=== PATIENT | female | born 1990 | race Caucasian/White ===

== ENCOUNTER 2019-06-02 11:33 | Observation (INO) | payer OTHER, SELFPAY ==
[2019-06-02] MEDS: DEXTROSE 5%/LACTATED RINGERS 1,000 ML 999 ML IV CONT (13:55)
[2019-06-02] MEDS: PROMETHAZINE HCL 12.5 MG SUPP.RECT RECTAL ×2 (14:15→18:36)
[2019-06-02 15:11] LABS: Basophils Percent Auto 0.1 % (0.2-1.2); Hematocrit 38.5 % (37.0-47.0); Immature Granulocyte Absolute 0.09 K/mm3 (0.00-0.031); Immature Granulocyte Percent A 0.5 % (0-0.5); Lymphocytes Absolute Auto 1.08 K/mm3 (0.9-3.2); Lymphocytes Percent Auto 6.4 % (18.3-44.2); Mean Corpuscular HGB Conc 36.4 g/dl (32-36); Mean Corpuscular Hemoglobin 34.1 pg (26-34); Mean Corpuscular Volume 93.7 fl (80-100); Mean Platelet Volume 12.9 fl (7.4-10.4); Monocytes Absolute Auto 0.3 K/mm3 (0.1-0.6); Monocytes Percent Auto 1.9 % (2.6-8.5); Neutrophils Absolute Auto 15.5 K/mm3 (1.3-6.7); Neutrophils Percent Auto 91.1 % (45.5-73.1); Platelet Count Result 299 k/mm3 (150-375); Red Blood Count 4.11 M/mm3 (4.2-5.4); Red Cell Distribution Width 13.3 % (11.5-14.5)
--- NOTE | 2019-06-02 15:16 | OBADM ---
This patient, Samantha Beach, admitted to the OB room [facility] Post [facility] for observation. Patient/family oriented to hospital policies and general routines including ID bracelet, bed and alarms, visiting hours, pain management, procedures, bathroom and other care routines, personal items, smoking policy, room service/diet, and visiting hours. Patient/Family are encouraged to report perceived risks to care and to ask questions if they do not understand what they are told or what they should do.
[2019-06-02 15:19] VITALS: BMI 43.9
[2019-06-02 15:22] LABS: Alanine Aminotransferase 9 U/L (4-35); Albumin Level 4.2 g/dL (3.5-5.1); Alkaline Phosphatase 63 U/L (38-126); Aspartate Amino Transferase 17 U/L (14-36); Bilirubin,Total 0.6 mg/dL (0.2-1.3); Blood Urea Nitrogen 7 mg/dL (7-17); Calcium 9.1 mg/dL (8.4-10.2); Carbon Dioxide 20 mmol/L (22-30); Chloride 107 mmol/L (98-107); Estimated CRCL calculation 216 ml/min; Estimated Glomerular Filt Rate > 60; Glucose 109 mg/dL (65-105); Potassium 3.2 mmol/L (3.4-5.0); Sodium 139 mmol/L (137-145)
--- NOTE | 2019-06-02 17:21 | PM.IMHP ---
H&P: HPI History of Present Illness Chief complaint: N/V/ ABD PAIN Narrative: Samantha Beach is a 28 year old female 2 para 0010 at 25 weeks gestation who presented as a transfer from the ER in [place]. For 2 days she has had nausea and vomiting. She started to have abdominal pain. She stated that after eating some unusual food that she started having nausea and vomiting. It persisted for almost 48 hours when she presented the ER. The ER was concerned about GI symptoms in [facility]. She was tested there. She denies any fever or cough or shortness of breath. She denies any fever, cough, shortness of breath now. She denies any vaginal bleeding. She denies any watery vaginal discharge. She denies any contractions. Her abdominal pain is intermittent. Review of Systems Constitutional: Constitutional: Reports no additional constitutional complaints, Denies fatigue, Denies headache(s), Denies lethargy and Denies weakness Eyes: Eyes: Reports no additional eye complaints, Denies blurry vision and Denies photophobia ENT: Reports as per HPI, Denies headache(s) and Denies neck pain Cardiovascular: Cardiovascular: Denies chest pain, Denies diaphoresis, Denies leg edema, Denies palpitations and Denies dyspnea Respiratory: Respiratory: Denies hemoptysis, Denies dyspnea and Denies wheezing Gastrointestinal: Gastrointestinal: Denies abdominal pain, Denies melena, Denies bloating and Denies change in bowel habits Genitourinary: Genitourinary: Reports no additional female genitourinary complaints Musculoskeletal: Musculoskeletal: Denies joint swelling, Denies neck pain, Denies numbness and Denies stiffness Neurologic: Denies Abnormal speech present, Denies confusion, Denies headache(s), Denies numbness and Denies weakness Psychiatric: Psychiatric: Denies anxiety, Denies confusion, Denies depression, Denies homicidal ideation and Denies suicidal ideation Endocrine: Endocrine: Denies fatigue and Denies palpitations Allergic/Immunologic: Allergic/Immunologic: Denies wheezing [facility] Family History Family History (Updated 09/06/15 @ 23:21 by DOCTOR UNKNOWN) Mother Hypertension Patient's mother is in good health Sibling Patient's brother is in good health Social History Social History Smoking status: Heavy tobacco smoker Substance use type: marijuana Meds Home Medications and Allergies Allergies Allergy/AdvReac Type Severity Reaction Status Date / Time methylphenidate Allergy Unknown Verified 11/07/13 17:20 Exam Const: General: healthy appearing, comfortable and no acute distress; No confusion Orientation/consciousness: No confusion Eyes: Direct Ophthalmoscopy: No photophobia Resp: Auscultation: clear to auscultation bilaterally, no rales, no rhonchi and no wheezes Cardio: Rate: regular rate Heart sounds: no click, no murmurs and no rubs GI: Inspection: non-distended GI Palp: No abdominal tenderness Auscultation: normal bowel sounds Neuro: General: No confusion Speech: No Abnormal speech present Extrem: General: normal to inspection, no pedal edema and no calf tenderness H&P: Results Labs Labs: Short CBC 06/02/19 Range/Units 15:04 WBC 17.0 H (4.5-10.0) K/mm3 Hgb 14.0 (12.0-15.0) g/dL Hct 38.5 (37.0-47.0) % Plt Count 299 (150-375) k/mm3 BMP 06/02/19 15:05 Sodium 139 Potassium 3.2 L Chloride 107 Carbon Dioxide 20 L BUN 7 Creatinine 0.40 L Glucose 109 H Calcium 9.1 Liver Function 06/02/19 Range/Units 15:05 Total Bilirubin 0.6 (0.2-1.3) mg/dL AST 17 (14-36) U/L ALT 9 (4-35) U/L Alkaline Phosphatase 63 (38-126) U/L Albumin 4.2 (3.5-5.1) g/dL Assessment and Plan Assessment and plan (1) Nausea and vomiting: Code(s): R11.2 - Nausea with vomiting, unspecified Status: Acute (2) Abdominal pain: Code(s): R10.9 - Unspecified abdominal pain Status: Acute Assessment and Plan: This pat
--- NOTE | 2019-06-02 17:27 | PC.NURSE ---
Dr Diaz here and plan of care discussed plan of care. Pt feeling better and wants to wait to see if she can keep some crackers down. Pt is a smoker and told she is on isolation and cannot go out. Pt appears to be better and states the suppository helped a lot.
[2019-06-02 17:48] LABS: Add Urine Microscopic? YES; Amorphous Sediment Urine Few; Appearance Urine Clear (Clear); Bacteria Urine Trace /hpf; Bilirubin Urine Negative (Negative); Blood Urine Negative (Negative); Color Urine Yellow (Yellow); Glucose Urine UA 3+ mg/dL (Negative); Ketones Urine 2+ mg/dL (Negative); Leukocyte Esterase Ur Negative LEU/UL (NEGATIVE); Mucus Urine Few /lpf; Nitrate Urine Negative (Negative); Protein Urine 1+ mg/dL (Negative); RBC Urine 0-2 /hpf (0-2); Specific Grav Ur 1.028 (1.001-1.035); Squamous Epithelial Cell Urine Many /hpf (Few); Urobilinogen Urine Negative mg/dL (<2.0)
[2019-06-02] MEDS: LACTATED RINGERS 1,000 ML 125 ML IV CONT (18:03)
[2019-06-02 18:45] VITALS: TEMP 36.2
--- NOTE | 2019-06-02 20:45 | PC.NURSE ---
2044- Dr. Fraire notified that pt requesting to d/c home. Pt states that she feels better. no abdominal pain, no vomiting,nausea. no fevers. Rx for phenergan suppository #20 ordered.
--- NOTE | 2019-06-24 10:19 | PM.OBTRLD ---
OB - Triage/Final Diagnosis Visit Information Date of evaluation: 06/02/19 Evaluation Laboratory results: Laboratory Tests 06/02/19 06/02/19 06/02/19 15:04 15:05 17:36 WBC 17.0 H RBC 4.11 L Hgb 14.0 Hct 38.5 MCV 93.7 MCH 34.1 H MCHC 36.4 H RDW 13.3 Plt Count 299 MPV 12.9 H Immature Gran % (Auto) 0.5 Neut % (Auto) 91.1 H Lymph % (Auto) 6.4 L [place] % (Auto) 1.9 L Eos % (Auto) 0.0 Baso % (Auto) 0.1 L Lymph # (Auto) 1.08 [place] # (Auto) 0.3 Eos # (Auto) 0.0 Baso # (Auto) 0.0 Abs Immat Gran (auto) 0.09 H Absolute Neuts (auto) 15.5 H Absolute Nucleated RBC 0.0 Nucleated RBC % 0.0 Sodium 139 Potassium 3.2 L Chloride 107 Carbon Dioxide 20 L BUN 7 Creatinine 0.40 L Estim Creat Clear Calc 216 Estimated GFR > 60 Glucose 109 H Calcium 9.1 Total Bilirubin 0.6 AST 17 ALT 9 Alkaline Phosphatase 63 Total Protein 8.0 Albumin 4.2 Urine Color Yellow Urine Appearance Clear Urine pH 6.0 Ur Specific [place] 1.028 Urine Protein 1+ H Urine Glucose (UA) 3+ H Urine Ketones 2+ H Ur Blood (Man) Negative Urine Nitrate Negative Urine Bilirubin Negative Urine Urobilinogen Negative Ur Leukocyte Esterase Negative Urine RBC 0-2 Urine WBC 4-6 H Ur Squamous Epith Cells Many H Amorphous Sediment Few H Urine Bacteria Trace Urine Mucus Few H Final Diagnosis (1) Abdominal pain: Code(s): R10.9 - Unspecified abdominal pain Status: Acute
== END 2019-06-02 21:25 | disposition home or self-care (01) ==
PROVIDERS: Admitting Provider Obstetrics & Gynecology; PCP Internal Medicine; Visit Provider Obstetrics & Gynecology
DX: O26.892 Other specified pregnancy related conditions, second trimester (principal); R10.9 Unspecified abdominal pain; O21.2 Late vomiting of pregnancy; O99.332 Smoking (tobacco) complicating pregnancy, second trimester; F17.200 Nicotine dependence, unspecified, uncomplicated; Z3A.25 25 weeks gestation of pregnancy
CPT/HCPCS: 36415; 80053; 81001; 85025; 96360; 96361; A9270; G0378; G0379; J7120; J7121

== ENCOUNTER 2019-08-17 15:01 | Outpatient (CLI) | payer OTHER, SELFPAY ==
[2019-08-17 15:28] VITALS: BP 124/69; PULSE 95
[2019-08-17 15:31] VITALS: BP 125/80; PULSE 82
[2019-08-17 15:46] VITALS: BP 127/71; PULSE 84
[2019-08-17 15:47] LABS: Basophils Percent Auto 0.1 % (0.2-1.2); Eosinophils Absolute Auto 0.1 K/mm3 (0-0.3); Eosinophils Percent Auto 0.5 % (0-4.4); Hematocrit 36.8 % (37.0-47.0); Hemoglobin 13.8 g/dL (12.0-15.0); Immature Granulocyte Absolute 0.12 K/mm3 (0.00-0.031); Immature Granulocyte Percent A 0.8 % (0-0.5); Lymphocytes Percent Auto 18.9 % (18.3-44.2); Mean Corpuscular HGB Conc 37.5 g/dl (32-36); Mean Corpuscular Hemoglobin 33.5 pg (26-34); Mean Corpuscular Volume 89.3 fl (80-100); Mean Platelet Volume 10.9 fl (7.4-10.4); Monocytes Absolute Auto 0.5 K/mm3 (0.1-0.6); Monocytes Percent Auto 3.3 % (2.6-8.5); Neutrophils Absolute Auto 10.9 K/mm3 (1.3-6.7); Neutrophils Percent Auto 76.4 % (45.5-73.1); Platelet Count Result 334 k/mm3 (150-375); Red Blood Count 4.12 M/mm3 (4.2-5.4); Red Cell Distribution Width 14.3 % (11.5-14.5); White Blood Count 14.3 K/mm3 (4.5-10.0)
--- NOTE | 2019-08-17 15:51 | PC.NURSE ---
1501-Pt sent over from office for elevated bp. Bhaskar YOUSSEF called over orders to draw [facility] labs and NST.
[2019-08-17 16:01] VITALS: BP 130/85; PULSE 85
[2019-08-17 16:05] LABS: Alanine Aminotransferase 9 U/L (4-35); Albumin Level 3.5 g/dL (3.5-5.1); Alkaline Phosphatase 104 U/L (38-126); Aspartate Amino Transferase 16 U/L (14-36); Bilirubin,Total 0.4 mg/dL (0.2-1.3); Blood Urea Nitrogen 6 mg/dL (7-17); Calcium 9.1 mg/dL (8.4-10.2); Carbon Dioxide 20 mmol/L (22-30); Chloride 106 mmol/L (98-107); Estimated Glomerular Filt Rate > 60; Glucose 88 mg/dL (65-105); Potassium 3.2 mmol/L (3.4-5.0); Sodium 135 mmol/L (137-145); Uric Acid 4.9 mg/dL (2.5-7.5)
[2019-08-17 16:12] VITALS: BP 124/69; PULSE 83
[2019-08-17 16:52] LABS: Add Urine Microscopic? YES; Appearance Urine Cloudy (Clear); Bacteria Urine 1+ /hpf; Bilirubin Urine Negative (Negative); Blood Urine Negative (Negative); Color Urine Yellow (Yellow); Glucose Urine UA Negative (Negative); Ketones Urine Trace mg/dL (Negative); Leukocyte Esterase Ur 2+ LEU/UL (NEGATIVE); Mucus Urine Heavy /lpf; Nitrate Urine Negative (Negative); Protein Urine 1+ mg/dL (Negative); Specific Grav Ur 1.023 (1.001-1.035); Squamous Epithelial Cell Urine Many /hpf (Few)
[2019-08-17 16:54] LABS: Creatinine Urine 219.2 mg/dL; Total Protein Urine Random 11 mg/dL
--- NOTE | 2019-08-17 17:18 | PC.NURSE ---
1705-Bhaskar YOUSSEF on unit, reviewed labs and NST. Orders received to discharge pt home.
== END 2019-08-17 18:00 | disposition home or self-care (01) ==
LOC: ANHOBOP 15:08 → ANHOBPP 15:09
PROVIDERS: Advanced Practice Midwife; PCP Internal Medicine; Visit Provider Obstetrics & Gynecology
DX: O13.9 Gestational [pregnancy-induced] hypertension without significant proteinuria, unspecified trimester (principal)
CPT/HCPCS: 36415; 59025; 80053; 81001; 82570; 84156; 84550; 85025; 87086; 87088; 99199

== ENCOUNTER 2019-08-21 11:14 | Inpatient (IN) | payer OTHER, SELFPAY ==
[2019-08-21] VITALS (102 sets, daily range): BP systolic 132–179; BP diastolic 59–131; PULSE 58–93; RESP 20–24; TEMP 36.2–37.2; O2SAT 94–100; BMI 45.0
--- NOTE | ~2019-08-21 | CT_ITS ---
EXAMINATION: CTA chest PE protocol DATE: 08/24/2019 12:50 INDICATION: Chest pain TECHNIQUE: Computed tomography angiography (CTA) of the chest was performed with 100 mL Omnipaque-350 intravenous contrast timed to evaluate the pulmonary arteries. Coronal maximum intensity projection 3D-reconstructions were created by the technologist. Automated exposure control and iterative reconst ruction technique were employed. Exam dose: 971.65 mGy-cm total exam DLP. COMPARISON: None. FINDINGS: Cardiomegaly. No pericardial or pleural effusion. No thoracic aortic aneurysm or dissection. There is diagnostic contrast enhancement of the pulmonary arteries and no evidence of pulmonary embol ism. There is focal wedge-shaped atelectasis or consolidation in the posterolateral left lower lobe at the lung base. The lungs are otherwise clear of infiltrate or consolidation. Included skeletal structures are unremarkable. IMPRESSION: Focal atelectasis and/or consolidation in the posterolateral left lower lobe No evidence of pulmonary embolism Cardiomegaly Reviewed, dictated and finalized at [facility]. Reviewed, dictated and finalized at location [facility].
--- NOTE | 2019-08-21 12:13 | LDADM ---
This patient, Samantha Beach, was admitted to Labor/Delivery/Recovery 106 on 08/21/19 at 11:14. Plans for labor, pain management and were discussed with patient. Patient/family oriented to hospital policies and general routines including ID bracelet, bed and alarms, visiting hours, pain management, procedures, bathroom and other care routines, personal items, smoking policy, room service/diet and guest tray routines, security routines, and visiting hours. Patient/Family are encouraged to report perceived risks to care and to ask questions if they do not understand what they are told or what they should do. See OBIX for further documentation.
[2019-08-21 12:28] LABS: Basophils Percent Auto 0.1 % (0.2-1.2); Eosinophils Absolute Auto 0.1 K/mm3 (0-0.3); Eosinophils Percent Auto 0.5 % (0-4.4); Hematocrit 36.1 % (37.0-47.0); Hemoglobin 13.5 g/dL (12.0-15.0); Immature Granulocyte Absolute 0.09 K/mm3 (0.00-0.031); Immature Granulocyte Percent A 0.7 % (0-0.5); Lymphocytes Absolute Auto 1.98 K/mm3 (0.9-3.2); Lymphocytes Percent Auto 16.4 % (18.3-44.2); Mean Corpuscular HGB Conc 37.4 g/dl (32-36); Mean Corpuscular Hemoglobin 33.9 pg (26-34); Mean Corpuscular Volume 90.7 fl (80-100); Monocytes Absolute Auto 0.5 K/mm3 (0.1-0.6); Monocytes Percent Auto 3.9 % (2.6-8.5); Neutrophils Absolute Auto 9.5 K/mm3 (1.3-6.7); Neutrophils Percent Auto 78.4 % (45.5-73.1); Platelet Count Result 292 k/mm3 (150-375); Red Blood Count 3.98 M/mm3 (4.2-5.4); Red Cell Distribution Width 14.7 % (11.5-14.5); White Blood Count 12.1 K/mm3 (4.5-10.0)
[2019-08-21] MEDS: LACTATED RINGERS 1,000 ML 125 ML IV CONT ×3 (12:29→17:25)
[2019-08-21] MEDS: AMPICILLIN 2 GM/NS 100 ML 2 GM/100 ML BAG IVPB (12:30)
[2019-08-21 12:38] LABS: Alanine Aminotransferase 8 U/L (4-35); Albumin Level 3.5 g/dL (3.5-5.1); Alkaline Phosphatase 101 U/L (38-126); Aspartate Amino Transferase 14 U/L (14-36); Bilirubin,Total 0.3 mg/dL (0.2-1.3); Blood Urea Nitrogen 7 mg/dL (7-17); Calcium 8.9 mg/dL (8.4-10.2); Carbon Dioxide 21 mmol/L (22-30); Chloride 109 mmol/L (98-107); Estimated Glomerular Filt Rate > 60; Glucose 79 mg/dL (65-105); Potassium 3.7 mmol/L (3.4-5.0); Sodium 134 mmol/L (137-145); Uric Acid 4.6 mg/dL (2.5-7.5)
[2019-08-21] MEDS: OXYTOCIN 30 UNITS/NS 500 ML 30 UNITS/500 ML BAG 6 UNITS IV CONT (12:38)
--- NOTE | 2019-08-21 12:40 | WPDOBADMIT ---
Obstetrics - Admit Note Admission Note: 28 y/o @ 36w6d here with spontaneous rupture of membranes yesterday evening. complicated by gestational hypertension. Cervix 1/thick/high per nurse exam. Plan: antibiotics for prolonged rupture and start pitocin. record reviewed. No pertinent additions to the history and/or any subsequent changes in the physical findings that are not consistent with the expected course of the were found. Additions to the history and/or subsequent changes in the physical findings follow. None.
[2019-08-21] MEDS: AMPICILLIN 1 GM/NS 50 ML 1 GM/50 ML BAG IVPB ×2 (15:47→21:01)
--- NOTE | 2019-08-21 17:07 | WPDANESEPPF ---
Anes - Initial Pre Proc Eval Procedure: labor epidural Date/Time: 08/21/19 17:07 Surgeon: Drew Diaz MD Pre Op Diagnosis: labor pain Pre Op Diagnosis: leaking Patient Data Age: 28 Gender: F Height: 1.63 m Weight: 119 kg Last Vital Signs Temp 37.2 C 08/21/19 15:02 Pulse 67 08/21/19 17:01 BP 159/86 H 08/21/19 17:01 Allergies Allergy/AdvReac Type Severity Reaction Status Date / Time methylphenidate Allergy Unknown Hives Verified 08/19/19 15:52 metoclopramide [From Reglan] AdvReac Agitated Verified 08/19/19 15:52 Home Medications Medication Instructions Recorded Confirmed Type No Home Medications 08/21/19 08/21/19 History Laboratory Tests 08/21/19 08/21/19 08/21/19 12:18 12:18 12:18 WBC 12.1 K/mm3 H K/mm3 (4.5-10.0) RBC 3.98 M/mm3 L M/mm3 (4.2-5.4) Hgb 13.5 g/dL g/dL (12.0-15.0) Hct 36.1 % L % (37.0-47.0) MCV 90.7 fl fl (80-100) MCH 33.9 pg pg (26-34) MCHC 37.4 g/dl H g/dl (32-36) RDW 14.7 % H % (11.5-14.5) Plt Count 292 k/mm3 k/mm3 (150-375) MPV 11.0 fl H fl (7.4-10.4) Immature Gran % (Auto) 0.7 % H % (0-0.5) Neut % (Auto) 78.4 % H % (45.5-73.1) Lymph % (Auto) 16.4 % L % (18.3-44.2) [place] % (Auto) 3.9 % % (2.6-8.5) Eos % (Auto) 0.5 % % (0-4.4) Baso % (Auto) 0.1 % L % (0.2-1.2) Lymph # (Auto) 1.98 K/mm3 K/mm3 (0.9-3.2) [place] # (Auto) 0.5 K/mm3 K/mm3 (0.1-0.6) Eos # (Auto) 0.1 K/mm3 K/mm3 (0-0.3) Baso # (Auto) 0.0 K/mm3 K/mm3 (0.0-0.1) Abs Immat Gran (auto) 0.09 K/mm3 H K/mm3 (0.00-0.031) Absolute Neuts (auto) 9.5 K/mm3 H K/mm3 (1.3-6.7) Absolute Nucleated RBC 0.0 K/mm3 K/mm3 (0.0-0.012) Nucleated RBC % 0.0 % % (0.0-0.2) Sodium Potassium Chloride Carbon Dioxide BUN Creatinine Estim Creat Clear Calc Estimated GFR Glucose Uric Acid Cancelled Calcium Total Bilirubin AST ALT Alkaline Phosphatase Total Protein Albumin RPR Pending Blood Type Antibody Screen 08/21/19 08/21/19 12:18 12:18 WBC RBC Hgb Hct MCV MCH MCHC RDW Plt Count MPV Immature Gran % (Auto) Neut % (Auto) Lymph % (Auto) [place] % (Auto) Eos % (Auto) Baso % (Auto) Lymph # (Auto) [place] # (Auto) Eos # (Auto) Baso # (Auto) Abs Immat Gran (auto) Absolute Neuts (auto) Absolute Nucleated RBC Nucleated RBC % Sodium 134 mmol/L L mmol/L (137-145) Potassium 3.7 mmol/L mmol/L (3.4-5.0) Chloride 109 mmol/L H mmol/L (98-107) Carbon Dioxide 21 mmol/L L mmol/L (22-30) BUN 7 mg/dL mg/dL (7-17) Creatinine 0.40 mg/dL L mg/dL (0.7-1.0) Estim Creat Clear Calc Not Reportable Estimated GFR > 60 (59 - ) Glucose 79 mg/dL mg/dL (65-105) Uric Acid 4.6 mg/dL mg/dL (2.5-7.5) Calcium 8.9 mg/dL mg/dL (8.4-10.2) Total Bilirubin 0.3 mg/dL mg/dL (0.2-1.3) AST 14 U/L U/L (14-36) ALT 8 U/L U/L (4-35) Alkaline Phosphatase 101 U/L U/L (38-126) Total Protein 7.0 g/dL g/dL (6.3-8.2) Albumin 3.5 g/dL g/dL (3.5-5.1) RPR Blood Type A Positive Antibody Screen Negative Patient hx anesthesia problems: none Family hx anesthesia problems: none [facility] Past Medical History Medical History (Updated 08/21/19 @ 17:06 by Jeanmarie Suarez DO)
--- NOTE | 2019-08-21 21:50 | PC.NURSE ---
pt reports that in the past when healthcare workers have assessed pt reflexes, healthcare workers were unable to elicit any reflex.
[2019-08-21] MEDS: MAGNESIUM SULF 4 GM/WATER100ML 4 GM/100 ML BAG IVPB (21:52)
[2019-08-21] MEDS: SODIUM CHLORIDE 0.9% IV 300 ML 600 ML I-UTERINE (22:34)
[2019-08-21] MEDS: MAGNESIUM SULF 20GM/WATER500ML 500 ML 50 MG IV CONT (23:36)
[2019-08-22] VITALS (29 sets, daily range): BP systolic 132–179; BP diastolic 74–138; PULSE 66–117; RESP 16–18; TEMP 36.3–36.7; O2SAT 98–100
--- NOTE | 2019-08-22 00:25 | PM.OBPRVD ---
OB - Delivery Note Procedure Delivery date: 08/22/19 events: Labor < 37 Weeks, Induced HTN and Pre-Eclampsia Intrapartal events: Mild Preeclampsia Induction method: per pitocin protocol Delivery monitor: internal FHT and internal uterine Route of delivery: Episiotomy description: None Laceration description: None Estimated blood loss (mL): 120 Anesthesia type: Epidural Baby Date of : 08/22/19 Time of : 00:12 Weeks of gestation at delivery: 36 Infant gender: Female presentation: vertex Placenta delivery description: Spontaneous cord vessel description: 3 Vessels score one minute: 8 score five minutes: 9 Narrative: Mother and baby in stable condition. Cord gasses collected and handed off to staff. Arterial 1cc Venous 1.5cc.
[2019-08-22] MEDS: OXYTOCIN 30 UNITS/NS 500 ML 30 UNITS/500 ML BAG 75 UNITS IV CONT (00:48)
[2019-08-22] MEDS: IBUPROFEN 600 MG TABLET PO ×3 (01:57→20:47)
[2019-08-22] MEDS: LABETALOL HCL INJ 100 MG/20 ML VIAL 20 MG IV PUSH (02:02)
[2019-08-22 02:45] LABS: Alanine Aminotransferase 9 U/L (4-35); Albumin Level 3.2 g/dL (3.5-5.1); Alkaline Phosphatase 103 U/L (38-126); Aspartate Amino Transferase 16 U/L (14-36); Bilirubin,Total 0.8 mg/dL (0.2-1.3); Blood Urea Nitrogen 4 mg/dL (7-17); Calcium 8.4 mg/dL (8.4-10.2); Carbon Dioxide 19 mmol/L (22-30); Chloride 106 mmol/L (98-107); Estimated CRCL calculation 220 ml/min; Estimated Glomerular Filt Rate > 60; Glucose 94 mg/dL (65-105); Potassium 3.4 mmol/L (3.4-5.0); Sodium 132 mmol/L (137-145); Uric Acid 4.7 mg/dL (2.5-7.5)
[2019-08-22] MEDS: LABETALOL HCL INJ 100 MG/20 ML VIAL 40 MG IV PUSH (02:56)
[2019-08-22 03:46] LABS: Mean Platelet Volume 10.9 fl (7.4-10.4); Platelet Count Result 288 k/mm3 (150-375)
[2019-08-22] MEDS: LACTATED RINGERS 1,000 ML 75 ML IV CONT (07:18)
[2019-08-22] MEDS: IBUPROFEN 600 MG TABLET (08:13)
[2019-08-22] MEDS: MULTIVIT/MIN/PREN/FOL AC/IRON TABLET 1 TAB PO (08:13)
[2019-08-22] MEDS: DOCUSATE SODIUM 100 MG CAPSULE PO ×2 (08:13→16:48)
--- NOTE | 2019-08-22 09:45 | PC.NURSE ---
Consult with pt., Discussed feedings and need to initiate pumping. Mother will rest and call out when ready.
[2019-08-22] MEDS: MAGNESIUM SULF 20GM/WATER500ML 500 ML 50 MG IV CONT (10:00)
[2019-08-22 11:22] LABS: Rapid Plasma Reagin Non-Reactive (NonReactive)
[2019-08-22] MEDS: ACETAMINOPHEN 325 MG TABLET 650 MG PO (20:48)
[2019-08-23 01:30] VITALS: BP 151/96; PULSE 77; O2SAT 100
[2019-08-23 05:45] VITALS: BP 155/91; PULSE 67
[2019-08-23 06:18] LABS: Hematocrit 31.4 % (37.0-47.0); Hemoglobin 11.5 g/dL (12.0-15.0)
[2019-08-23] MEDS: DOCUSATE SODIUM 100 MG CAPSULE PO ×2 (07:15→15:02)
[2019-08-23] MEDS: MULTIVIT/MIN/PREN/FOL AC/IRON TABLET 1 TAB PO (07:15)
[2019-08-23] MEDS: IBUPROFEN 600 MG TABLET PO ×2 (07:15→15:03)
[2019-08-23 07:19] VITALS: BP 143/77; PULSE 67; RESP 18; TEMP 36.9
--- NOTE | 2019-08-23 07:25 | WPDANLDPN2 ---
Anes-Prog Note L&D Date/Time: 08/23/19 07:25 Comfortable throughout: labor and delivery Neuraxial method: epidural Epidural/Spinal procedure site: clean & non-tender Neuro status: Neuro function grossly intact. Cardiovascular status: normal Respiratory status: normal Airway patency: baseline Mental status: baseline Post-Op hydration status: normal Vital Signs: Last Vital Signs Temp 36.9 C 08/23/19 07:19 Pulse 67 08/23/19 07:19 Resp 18 08/23/19 07:19 BP 143/77 H 08/23/19 07:19 Pulse Ox 100 08/23/19 01:30 I/O: Intake & Output 08/22/19 08/22/19 08/23/19 15:59 23:59 07:59 Intake Total 2200 1240 1000 Output Total 1900 1500 1800 Balance 300 260 -800 Patient feedback: Patient satisfied with anesthetic care.
--- NOTE | 2019-08-23 07:54 | PM.OBPNVD ---
OB - PN: Subj Subjective Date/time seen: 08/23/19 07:54 OB - PN: Obj Data Labs CBC & Chem 7: 08/23/19 05:47 08/22/19 02:26 Labs: Laboratory Results - last 24 hr 08/21/19 08/23/19 12:18 05:47 Hgb 11.5 L Hct 31.4 L RPR Non-reactive OB - PN A/P Time Spent With Patient Time: Total time spent is greater than 50% in coordination of care (as documented) at patient's floor/unit and/or counseling patient: Review of Systems Review of Systems: All systems reviewed & are unremarkable except as noted in HPI and below Exam Narrative: Exam Narrative: Fundus firm and vaginal flow controlled. Pt doing well. Denies h/a, v/d, e/p. DTR normal. Const: General: comfortable Chest: Breast/axilla inspection: normal inspection of the breasts Resp: Effort & Inspection: normal respiratory effort Auscultation: clear to auscultation bilaterally Cardio: Rate: regular rate GI: Auscultation: normal bowel sounds Psych: Appearance: grossly normal Affect: normal affect Attitude: cooperative Judgement: Good judgement present (Psych)
[2019-08-23 12:30] VITALS: BP 130/74; PULSE 76; RESP 18; TEMP 36.8
[2019-08-23 16:00] VITALS: BP 148/84; PULSE 86; RESP 18; TEMP 36.6
[2019-08-23 23:30] VITALS: BP 149/88; PULSE 72; RESP 16; TEMP 36.8
[2019-08-24 05:35] VITALS: BP 145/71; PULSE 70
--- NOTE | 2019-08-24 08:21 | P.PNOB_ITS ---
OB - PN: Subj Subjective Date/time seen: 08/24/19 08:21 OB - PN: Obj Data Labs CBC & Chem 7: 08/23/19 05:47 08/22/19 02:26 OB - PN A/P Plan day: 2 Plan: routine care and discharge home Comments: Post mag. BP improving. Pt desires discharge. Spoke with Dr Diaz in great detail about history and reviewed bp. He agrees that she can be discharged this evening. PIH precautions discussed in detail with patient. Time Spent With Patient Time: Total time spent is greater than 50% in coordination of care (as documented) at patient's floor/unit and/or counseling patient: Review of Systems 2 Review of Systems: All systems reviewed & are unremarkable except as noted in HPI and below Exam Narrative: Exam Narrative: Fundus firm and vaginal flow controlled. Lower ext normal edema. Neg homans. No redness, warmth, or tenderness. Const: General: comfortable Chest: Breast/axilla inspection: normal inspection of the breasts Resp: Effort & Inspection: normal respiratory effort Cardio: Rate: regular rate GI: Auscultation: normal bowel sounds Psych: Appearance: grossly normal Affect: normal affect Attitude: cooperative Judgement: Good judgement present (Psych)
[2019-08-24 08:35] VITALS: BP 160/94; PULSE 86; RESP 16; TEMP 37.1; O2SAT 100
--- NOTE | 2019-08-24 10:30 | PC.NURSE ---
Consult with pt., mother reports she continues to pump every three hours, she now has a few drops each session. Discussed stimulation and need for regular stimulation for milk production and normal transition for a first time mother may be up to day 4-5. Mother is concerned that with PCOS and gestation diabetes her milk may not come in. Reviewed both may impact supply, at this time it is too early to tell the volume. Suggested mother follow suggested pumping of every three hours for 15 minutes and allow process to transition. Reviewed any milk given to is a benefit and may use formula to complete feeding. Mother is feeding as required and waking to feed if needed. Infant is currently meeting outcomes for weight, output, jaundice and feeding frequencies. Mother states she feels confident to continue pumping and bottle feeding at home, and states she may put infant to breast once her milk is in. Reviewed transition to breast milk, signs of adequate intake, and engorgement/relief. Instructed to call ICP if intake/output less than required. Reviewed regular medications mother is taking. Information provided per Isabel. Reviewed community resources on the [employer] website and in the Mom/Baby guide. Information on outpatient services provided. Mother has no further questions at this time.
[2019-08-24] MEDS: IBUPROFEN 600 MG TABLET PO (10:41)
[2019-08-24] MEDS: DOCUSATE SODIUM 100 MG CAPSULE PO (10:42)
[2019-08-24] MEDS: MULTIVIT/MIN/PREN/FOL AC/IRON TABLET 1 TAB PO (10:42)
[2019-08-24 11:35] VITALS: BP 147/88; PULSE 68; RESP 18; TEMP 37.7; O2SAT 100
[2019-08-24 15:10] VITALS: BP 154/87; PULSE 69; RESP 18; TEMP 37.3; O2SAT 99
--- NOTE | 2019-08-24 15:11 | ECG_ITS ---
Measurements Intervals [place] Rate: 64 P: 48 NM: 177 QRS: 30 QRSD: 89 T: 32 QT: 390 QTc: 404 Interpretive Statements SINUS RHYTHM DELAYED PRECORDIAL R/S TRANSITION BASELINE ARTIFACT- III, AVF BORDERLINE ECG Electronically Signed On 08-24-2019 15:39:49 CDT by Hamilton Cruz D.O.
--- NOTE | 2019-08-24 15:26 | PM.IMCN ---
Assessment and Plan Assessment and plan (1) Chest pain: Code(s): R07.9 - Chest pain, unspecified Status: Acute Assessment and Plan: The patient had a CT a pulmonary and which was negative for PE. Patient may need to follow up outpatient for a echo cardiac Doppler. Patient could possibly have pulmonary hypertension is she has a history of asthma and has been wheezing as well. I would recommend that patient have a echo cardiac Doppler set up by her primary care doctor outpatient. I am checking her electrolytes and troponin. This could be related to anxiety. Also we have discussed smoking cessation. The patient has been wheezing and use to have a rescue inhaler but has none now. Patient could be released to home today with follow-up per primary care doctor if all of her labs are within normal limits. (2) Bipolar disorder: Code(s): F31.9 - Bipolar disorder, unspecified Status: Acute Assessment and Plan: She is not currently on any medication for this. (3) anxiety: Code(s): O99.345 - Other mental disorders complicating the puerperium; F41.8 - Other specified anxiety disorders Status: Acute Assessment and Plan: Patient is 2 para 1. She has 1st time mother and may be experiencing some anxiety. (4) Tobacco abuse: Code(s): Z72.0 - Tobacco use Status: Acute Assessment and Plan: We discussed smoking cessation. HPI Data of Consult Consult date: 08/24/19 Requesting Physician: Drew Diaz MD Primary Care Provider: Vahid JuniorMD Consult Narrative Narrative: Samantha Beach is a 28 year old female I was consulted on this patient today due to complaints of chest pain. Patient stated that she went outside to smoke a cigarette and she was walking she developed some chest pain. She said she recently had a cold and had been coughing as well. She is day 2. She had -induced hypertension. She is 2 para 1. The patient also has a history of bipolar disorder, depression and anxiety. The patient also uses tobacco and now has expiratory wheezes. Patient has no fever chills. The CT of the chest was ordered and was negative for a PE but cardiomegaly was seen. Patient has no prior heart history. The patient stated once she hold her baby she calmed down and felt better and the chest pain went away. Review of Systems Review of Systems: All systems reviewed & are unremarkable except as noted in HPI and below Constitutional: Constitutional: Reports as per HPI and Reports no additional constitutional complaints Eyes: Eyes: Reports as per HPI and Reports no additional eye complaints ENT: Reports system reviewed and no additional complaints, except as documented and Reports Normal hearing present Cardiovascular: Cardiovascular: Reports no additional cardiovascular complaints Respiratory: Respiratory: Reports no additional respiratory complaints and Reports no additional respiratory complaints Gastrointestinal: Gastrointestinal: Reports as per HPI and Reports no additional gastrointestinal complaints Musculoskeletal: Musculoskeletal: Reports no additional musculoskeletal complaints Integumentary/Breasts: Skin/Breast: Reports system reviewed and no additional complaints, except as docu and Reports as per HPI Neurologic: Reports system reviewed and no additional complaints, except as documented, Reports as per HPI and Reports Normal hearing present Psychiatric: Psychiatric: Reports no additional psychiatric complaints and Reports as per HPI Endocrine: Endocrine: Reports no additional endocrine complaints Hematologic/Lymphatic: Hematologic/Lymphatic: Reports no additional hematologic/lymphatic complaints Allergic/Immunologic: Allergic/Immunologic: Reports no additional allergic/immunologic complaints [facility] Past Medical History Medical History (Updated 08/24/19 @ 15:40 by Elizabeth White NP) ADHD Bipolar
[2019-08-24 15:48] LABS: Alanine Aminotransferase 10 U/L (4-35); Albumin Level 3.4 g/dL (3.5-5.1); Alkaline Phosphatase 71 U/L (38-126); Aspartate Amino Transferase 20 U/L (14-36); Bilirubin,Total 0.3 mg/dL (0.2-1.3); Blood Urea Nitrogen 7 mg/dL (7-17); Calcium 8.8 mg/dL (8.4-10.2); Carbon Dioxide 21 mmol/L (22-30); Chloride 106 mmol/L (98-107); Estimated CRCL calculation 181 ml/min; Estimated Glomerular Filt Rate > 60; Glucose 84 mg/dL (65-105); Potassium 3.6 mmol/L (3.4-5.0); Sodium 136 mmol/L (137-145)
[2019-08-24 16:00] LABS: Troponin I < 0.012 ng/mL (0.000-0.034)
--- NOTE | 2019-08-24 19:19 | PC.NURSE ---
1000 Nurse present to do pt's morning assessment; pt states she had just come in from smoking, and is c/o chest pain, mid sternal; pt calm, relaxed, in no acute distress. Skin dry; no apparent SOB; pt rated the pain at a 4 and after 20 minutes of talking with pt, she stated the pain was less, at a 2. BP 161/91, pulse 78. Pt states she felt similar pain earlier this a.m. after she had smoked a cigarette. Pt reports hx of anxiety, depression, Bipolar; she is on no meds. She does state she is anxious about this baby, and that she is OK, especially after the loss of her first baby, an early spontaneous AB; Pt was given Ibuprofen, and within an hour, she reports chest pain was resolved. No pain. 1142 Phone call to Dwayne YOUSSEF with the above; order for CTA pulmonary study received and ordered. Pt had IV place, consent signed. CT completed. 1280 Pt returned to her room, in apparent stable condition. 1429 Call to Kelechi Martin with CT result. She stated to report it to Dr. Diaz. [address] Diaz with CR result; he ordered consult with hospitalist for their evaluation of pt's c/o chest pain, CT result. 1445 Elizabeth Miguel [employer] paged; 1455 Call from Elizabeth Miguel; phone report given; she will visit patient. 1510 Elizabeth Miguel NP here; spoke with pt. orders entered for labs and EKG. 1525 labs drawn 1530 EKG completed. Gerda reviewed the EKG after it was completed, and said it was OK, and pt OK for discharge home today as planned if labs WNL. 1622 phone call with Butch Miguel NP; she stated labs WNL, and pt OK for discharge home as planned. 1625 Dr. Diaz advised of all of the above. 1627 Marah advised of all of the above. Pt to proceed to discharge home this afternoon. 1655 Discharge papers reviewed with pt; she was shown her mother-baby guide; handout on induced hypertension reviewed with her and when to call her Dr. Pt signed discharge papers for herself and her baby.
[2019-08-25 11:06] VITALS: BP 154/101; PULSE 76; RESP 20; TEMP 37.1; O2SAT 99
--- NOTE | 2019-09-02 21:41 | PM.OBDSVD ---
DS: Admitting Diagnosis Admitting Diagnosis Admitting Diagnosis: Encounter for supervision of normal , unspecified, third trimester OB - DS: Summary OB Procedures : PIH Mgmt OB Procedures Intrapartum: Spontaneous Vag Delivery OB Procedures: : None Time Spent with Patient Time attestation: Total time spent providing and/or coordinating discharge services: DS: Data Data Completed and Pending Completed studies during hospitalization: Pending at discharge 08/22/19 00:30 Surgical [PTH] Routine Discharge Plan Discharge Attending physician on discharge: Libia Ga Consulting providers: Emmett Westbrook ; Elizabeth White ; Libia Ga ; Jeanmarie Suarez ; Silvano Benito ; Hamilton Cruz Discharging Clinician: Libia Ga Anticipated Discharge Date/Time: 08/24/19 17:00 Patient Disposition: Home, Self-Care Activity: pelvic rest Diet: as tolerated Discharge Instructions: Education: Mom and Baby Guide Given to: Mother Follow-Up: Call your delivering provider's office for an appointment to be seen in: 1 Week Mom and baby should come to the [facility] for the follow-up appointment. Appointment Date/Time: August 25, 2019 at 11:00 am What to expect at your follow-up visit: Blood Pressure Check Physical Assessment Call [phone] if you are unable to keep your appointment time. BREAST CARE: 1. Wear a snug supportive bra. 2. For engorgement discomfort: Breast Feeding: A. Apply warm moist washcloths B. Express milk as needed to relieve engorgement C. Wear loose clothing 3. For sore nipples: A. Identify correct latch-on B. Apply warm moist washcloths before and after nursing C. Air dry nipples after nursing D. May apply Lansinoh cream to nipples EPISIOTOMY/PERINEAL CARE: 1. Until bleeding stops, use your ayad bottle after urinating 2. Change your pad frequently throughout the day 3. You may take sitz baths several times a day (fill your bathtub with warm water and soak for 20 minutes.) Do NOT bathe in the water 4. No tub baths until seen by your physician - You may shower ACTIVITY: 1. Rest as much as possible. 2. Do not exercise or lift anything heavier than your baby (such as laundry or other children.) 3. Avoid stairs or driving as much as possible. 4. Do not put anything into the vagina. No douching, tampons, or sexual activity until seen by physician. NOTIFY PHYSICIAN IF YOU HAVE ANY QUESTIONS OR IF ANY OF THE FOLLOWING SYMPTOMS OCCUR: 1. If your perineum becomes red, swollen, or more painful than what you have experienced in the hospital. 2. If your vaginal bleeding becomes foul smelling. 3. If your vaginal bleeding becomes more heavy than a period or if your bleeding changes from pink to bright red. However, you may pass an occasional walnut-sized clot once or twice for the first week . 4. If you experience a sharp, shooting pain in you calves. 5. If you discover a hard, reddened area on your breast or if you experience flu-like symptoms. 6. Temperature of 100.4 or higher 7. Chest pain or difficulty breathing, call Dr. or go to ER. DIET: 1. Eat regular, well-balanced meals. 2. Drink plenty of fluids daily. If , drink to thirst.Strict PIH precautions. May be discharged after 5pm. Patient Instructions: How to Stop Smoking (DC) Stand Alone Forms: General Discharge Information Follow-up/Referrals: Libia Ga CNM [Certified Nurse Natural Resources Technician] - Discharge Medications: No Action labetalol 100 mg Tablet 400 mg PO Q12H Qty: 60 RF: 0 Date of admission: 08/21/19 11:14 Primary Care Provider: Sandi,Vahid Angeles Admitting Provider: Drew Diaz Discharge Date/Time: 08/24/19 17:50 Attending physician on admission: Drew Diaz
== END 2019-08-24 17:50 | disposition home or self-care (01) | DRG 560 ==
LOC: ANHLDR 08-22 02:15 → ANHOB2 08-22 03:24
PROVIDERS: Advanced Practice Midwife; Nurse Practitioner; Admitting Provider Obstetrics & Gynecology; PCP Internal Medicine; Visit Provider Obstetrics & Gynecology
DX: O60.23X0 Term delivery with preterm labor, third trimester, not applicable or unspecified (principal); Z37.0 Single live birth; Z3A.37 37 weeks gestation of pregnancy; O13.4 Gestational [pregnancy-induced] hypertension without significant proteinuria, complicating childbirth; O14.94 Unspecified pre-eclampsia, complicating childbirth; O99.284 Endocrine, nutritional and metabolic diseases complicating childbirth; E28.2 Polycystic ovarian syndrome; O99.344 Other mental disorders complicating childbirth; F41.8 Other specified anxiety disorders; F90.9 Attention-deficit hyperactivity disorder, unspecified type; F31.9 Bipolar disorder, unspecified; O99.334 Smoking (tobacco) complicating childbirth; F17.210 Nicotine dependence, cigarettes, uncomplicated; O99.214 Obesity complicating childbirth; E66.01 Morbid (severe) obesity due to excess calories; O99.89 Other specified diseases and conditions complicating pregnancy, childbirth and the puerperium; R07.9 Chest pain, unspecified
CPT/HCPCS: 36415; 71275; 80053; 84484; 84550; 85014; 85018; 85025; 85049; 86592; 86850; 86900; 86901; 88307; 93005; A9270; J0290; J2590; J2795; J3010; J3475; J7030; J7120; Q9967

== ENCOUNTER 2019-08-25 11:57 | Observation (INO) | payer OTHER, SELFPAY ==
[2019-08-25] VITALS (90 sets, daily range): BP systolic 136–182; BP diastolic 71–108; PULSE 63–85; RESP 16–20; TEMP 36.7–37.1; O2SAT 97–100
[2019-08-25 13:28] LABS: Basophils Percent Auto 0.3 % (0.2-1.2); Eosinophils Absolute Auto 0.1 K/mm3 (0-0.3); Hematocrit 33.9 % (37.0-47.0); Hemoglobin 12.4 g/dL (12.0-15.0); Immature Granulocyte Absolute 0.08 K/mm3 (0.00-0.031); Immature Granulocyte Percent A 0.6 % (0-0.5); Lymphocytes Absolute Auto 2.24 K/mm3 (0.9-3.2); Lymphocytes Percent Auto 15.7 % (18.3-44.2); Mean Corpuscular HGB Conc 36.6 g/dl (32-36); Mean Corpuscular Hemoglobin 33.5 pg (26-34); Mean Corpuscular Volume 91.6 fl (80-100); Monocytes Absolute Auto 0.5 K/mm3 (0.1-0.6); Monocytes Percent Auto 3.4 % (2.6-8.5); Neutrophils Absolute Auto 11.2 K/mm3 (1.3-6.7); Platelet Count Result 314 k/mm3 (150-375); Red Cell Distribution Width 14.8 % (11.5-14.5); White Blood Count 14.2 K/mm3 (4.5-10.0)
--- NOTE | 2019-08-25 13:35 | PC.NURSE ---
Discussed severe BP's with pt and MD wants to give IV medicine to lower BP and start Magnesium Sulfate IV for 24 hrs to prevent seizures. Pt states she is not staying. Explained to pt that preeclampsia can worsen up to 6 weeks after delivery and can cause seizures, stroke, and/or . Pt states her BP is only up because she hates being in the hospital. Pt states she will stay for an hour, but then she is leaving. Pt agreeable to me starting IV BP meds and magnesium sulfate.
[2019-08-25] MEDS: LABETALOL HCL INJ 100 MG/20 ML VIAL 20 MG IV PUSH (13:40)
[2019-08-25 13:41] LABS: Alanine Aminotransferase 11 U/L (4-35); Albumin Level 3.7 g/dL (3.5-5.1); Alkaline Phosphatase 71 U/L (38-126); Aspartate Amino Transferase 30 U/L (14-36); Bilirubin,Total 0.6 mg/dL (0.2-1.3); Blood Urea Nitrogen 6 mg/dL (7-17); Calcium 9.4 mg/dL (8.4-10.2); Carbon Dioxide 23 mmol/L (22-30); Chloride 106 mmol/L (98-107); Estimated Glomerular Filt Rate > 60; Glucose 80 mg/dL (65-105); Potassium 3.6 mmol/L (3.4-5.0); Sodium 136 mmol/L (137-145); Uric Acid 5.9 mg/dL (2.5-7.5)
[2019-08-25] MEDS: LACTATED RINGERS 1,000 ML 75 ML IV CONT (13:51)
[2019-08-25] MEDS: LABETALOL HCL INJ 100 MG/20 ML VIAL 40 MG IV PUSH (13:54)
[2019-08-25] MEDS: MAGNESIUM SULF 4 GM/WATER100ML 4 GM/100 ML BAG IVPB (13:58)
[2019-08-25] MEDS: MAGNESIUM SULF 20GM/WATER500ML 500 ML 50 MG IV CONT (14:30)
[2019-08-25] MEDS: LABETALOL HCL INJ 100 MG/20 ML VIAL 80 MG IV PUSH (14:34)
--- NOTE | 2019-08-25 14:54 | PC.NURSE ---
Dr. Diaz informed of BP's, Labetalol 20, 40 , and 80 mg doses given. Informed of lab results. MD informed pt states she would only stay 1 hour and then she is going home. Pt states the only reason her BP is high is because she hates hospitals. Informed I had educated pt on how preeclampsia can worsen for up to 6 weeks after delivery and she could have seizures or a stroke from the elevated BP's. Pt continues to state she is leaving if her next BP is good. coming to talk to pt.
[2019-08-25] MEDS: LABETALOL HCL 100 MG TABLET 400 MG PO (15:42)
[2019-08-26] VITALS (21 sets, daily range): BP systolic 127–171; BP diastolic 70–101; PULSE 67–86; RESP 16–18; TEMP 36.3–36.9; O2SAT 99–100
[2019-08-26] MEDS: MAGNESIUM SULF 20GM/WATER500ML 500 ML 50 MG IV CONT ×2 (01:21→11:38)
[2019-08-26] MEDS: LACTATED RINGERS 1,000 ML 75 ML IV CONT (03:25)
[2019-08-26] MEDS: LABETALOL HCL 100 MG TABLET 400 MG PO ×2 (03:25→15:23)
--- NOTE | 2019-08-26 11:39 | P.PNOB_ITS ---
OB - PN: Subj Subjective Date/time seen: 08/26/19 11:39 Interval history: She was admitted by one of my partners yesterday for preeclampsia ( 08/21) and is on IV Magnesium since around 1400 08/24. labetalol was started yesterday as well. No VAZQUEZ, visual changes, chest pain, SOB, RUQ pain. Lochia less than menses. No complaints today Patient comments: no complaints, pain well controlled and other (Lochia similar to menses) baby status: doing well OB - PN: Obj Data Labs CBC & Chem 7: 08/25/19 13:19 08/25/19 13:19 Labs: Laboratory Results - last 24 hr 08/25/19 08/25/19 13:19 13:19 WBC 14.2 H RBC 3.70 L Hgb 12.4 Hct 33.9 L MCV 91.6 MCH 33.5 MCHC 36.6 H RDW 14.8 H Plt Count 314 MPV 11.0 H Immature Gran % (Auto) 0.6 H Neut % (Auto) 79.0 H Lymph % (Auto) 15.7 L [place] % (Auto) 3.4 Eos % (Auto) 1.0 Baso % (Auto) 0.3 Lymph # (Auto) 2.24 [place] # (Auto) 0.5 Eos # (Auto) 0.1 Baso # (Auto) 0.0 Abs Immat Gran (auto) 0.08 H Absolute Neuts (auto) 11.2 H Absolute Nucleated RBC 0.0 Nucleated RBC % 0.0 Sodium 136 L Potassium 3.6 Chloride 106 Carbon Dioxide 23 BUN 6 L Creatinine 0.40 L Estim Creat Clear Calc Not Reportable Estimated GFR > 60 Glucose 80 Uric Acid 5.9 Calcium 9.4 Total Bilirubin 0.6 AST 30 ALT 11 Alkaline Phosphatase 71 Total Protein 7.0 Albumin 3.7 OB - PN A/P Assessment and Plan (1) Preeclampsia in period: Code(s): O14.95 - Unspecified pre-eclampsia, complicating the puerperium Status: Acute Assessment and Plan: Continue IV magnesium for 24 hours (2-3 more hours). Labs normal. Observe BP after magnesium is discontinued. Continue labetalol 400 mg po bid. Consider discharge this pm or tomorrow Plan day: 4 (s/p vaginal delivery, doing well) Plan: routine care Time Spent With Patient Time: Total time spent is greater than 50% in coordination of care (as documented) at patient's floor/unit and/or counseling patient: Time with patient: less than 15 minutes Review of Systems Review of Systems: All systems reviewed & are unremarkable except as noted in HPI and below Exam Const: General: no acute distress Resp: Effort & Inspection: normal respiratory effort Auscultation: clear to auscultation bilaterally Cardio: Rate: regular rate Rhythm: regular rhythm GI: Inspection: other (Fundus firm and nontender at umbilicus) GI Palp: Yes Soft to palpation and No Tenderness to palpation present (GI) Extrem: General: no calf tenderness and no edema Psych: Mental Status: mental status grossly normal
[2019-08-27] VITALS (7 sets, daily range): BP systolic 132–156; BP diastolic 70–84; PULSE 62–69; RESP 16; TEMP 36.8
[2019-08-27] MEDS: LABETALOL HCL 100 MG TABLET 400 MG PO (05:38)
--- NOTE | 2019-08-27 09:30 | P.PNOB_ITS ---
OB - PN: Subj Subjective Date/time seen: 08/27/19 09:30 Interval history: No VAZQUEZ, visual changes, chest pain, SOB, RUQ pain. Lochia less than menses. No complaints today Patient comments: no complaints, pain well controlled and other (Lochia similar to menses) [place] baby status: doing well OB - PN: Obj Data Labs CBC & Chem 7: 08/25/19 13:19 08/25/19 13:19 OB - PN A/P Assessment and Plan (1) Preeclampsia in period: Code(s): O14.95 - Unspecified pre-eclampsia, complicating the puerperium Status: Acute Assessment and Plan: BP has been mildly elevated to normal (no severely elevated values) since yesterday afternoon and asymptomatic. Discharge home with labetalol 400 mg po bid. Keep appointment scheduled for this coming . Signs/sx pre-E reviewed, and she agrees to call if any of those or any other concerning symptoms develop Plan day: 5 (s/p vaginal delivery, doing well) Plan: routine care, discharge home and other Time Spent With Patient Time: Total time spent is greater than 50% in coordination of care (as documented) at patient's floor/unit and/or counseling patient: Exam Const: General: no acute distress GI: Inspection: other (Fundus firm and nontender below umbilicus) GI Palp: Yes Soft to palpation and No Tenderness to palpation present (GI) Extrem: General: no edema
--- NOTE | 2019-08-27 09:54 | PC.NURSE ---
0940- Dr. Fraire at bedside rounding on patient. Orders received to discharge patient to home with follow up on 08/31/2019. Prescription sent to pharmacy for Labetalol 400 mg PO BID. Patient agreeable with this plan.
--- NOTE | 2019-08-27 23:12 | DS_ITS ---
DATE OF DISCHARGE: 08/27/2019 ADMISSION DIAGNOSIS: preeclampsia. DISCHARGE DIAGNOSIS: preeclampsia. DISCHARGE MEDICATIONS: Include: 1. vitamin. 2. Labetalol 400 mg p.o. b.i.d. 3. Ibuprofen p.r.n. FOLLOWUP: Followup appointment is already scheduled in the office on , August 30, and she was instructed to keep that appointment. HOSPITAL COURSE: A 28-year-old, who had a vaginal delivery on August 21 and had been discharged home. Her delivery and course were complicated by preeclampsia. She came in for her routine check at the hospital on August 24 and had severely elevated blood pressure, so she was admitted for severe preeclampsia and was given magnesium for 24 hours. She was originally given IV medication to bring her blood pressure down and then was started on 400 mg of p.o. labetalol twice daily. Her blood pressure did come down to mildly elevated to normal range. Her magnesium had been stopped in the afternoon on August 25 and her blood pressure remained normal to mildly elevated throughout the night and morning into August 26. She denies headache, visual changes, right upper quadrant pain and has no complaints related to being and her baby is doing well, breast-feeding. So, she is being discharged home with labetalol twice daily and followup appointment is scheduled in 4 days. We reviewed the signs and symptoms of preeclampsia. She expressed understanding and agree to call if any of those occur or if any other concerning symptoms occur. Her laboratory evaluation was completely normal throughout her stay. D I MT: Huong
== END 2019-08-27 10:20 | disposition home or self-care (01) ==
PROVIDERS: Admitting Provider Obstetrics & Gynecology; PCP Internal Medicine; Visit Provider Obstetrics & Gynecology
DX: O14.95 Unspecified pre-eclampsia, complicating the puerperium (principal)
CPT/HCPCS: 36415; 80053; 84550; 85025; 96361; 96365; 96366; 96375; 96376; A9270; G0378; G0379; J3475; J7120

== ENCOUNTER 2020-09-21 17:40 | Observation (INO) | payer OTHER, SELFPAY ==
[2020-09-21] VITALS (8 sets, daily range): BP systolic 114–137; BP diastolic 60–84; PULSE 74–97; TEMP 36.4–36.7; BMI 39.5
--- NOTE | ~2020-09-21 | US_ITS ---
EXAMINATION: US OB limited DATE: 09/22/2020 07:53 INDICATION: Leaking fluid during third trimester TECHNIQUE: Real-time ultrasound of the pelvis was performed. The interpreting radiologist was not pre sent for the study. COMPARISON: None. FINDINGS: There is a single living fetus in vertex presentation. The placenta is fundal. cardia c activity and movement are noted. heart rate is 127 beats per minute (bpm). The amniotic fluid index is 28.4 cm which is high (normal range: 8.1 cm to 24.8 cm). IMPRESSION: 1. Single living fetus in vertex presentation. 2. Polyhydramnios. Reviewed, dictated and finalized at location A.
--- NOTE | ~2020-09-21 | US_ITS ---
US OB limited 09/23/2020 07:36 Indication: Leaking fluid. Procedure: Real-time Limited obstetrical ultrasound Comparison: 09/22/2020 Findings: There is a single living intrauterine in vertex presentation. Placenta is located anteriorly without previa. Amniotic fluid index is normal measuring 18.6 cm. heart rate is 126 BPM. Impression: 1: Single living intrauterine in vertex presentation. 2: Normal EKTA measures 18.6 cm. Reviewed, dictated and finalized at location A. Impression: 1: Single living intrauterine in vertex presentation. 2: Normal EKTA measures 18.6 cm.
--- NOTE | 2020-09-21 18:27 | OBADM ---
This patient, Samantha Beach, admitted to the OB room OB Post 116 for observation. Patient/family oriented to hospital policies and general routines including ID bracelet, bed and alarms, visiting hours, pain management, procedures, bathroom and other care routines, personal items, smoking policy, room service/diet, and visiting hours. Patient/Family are encouraged to report perceived risks to care and to ask questions if they do not understand what they are told or what they should do.
[2020-09-21 19:32] LABS: Basophils Percent Auto 0.2 % (0.2-1.2); Eosinophils Percent Auto 0.3 % (0-4.4); Hematocrit 34.1 % (37.0-47.0); Hemoglobin 12.5 g/dL (12.0-15.0); Immature Granulocyte Absolute 0.05 K/mm3 (0.00-0.031); Immature Granulocyte Percent A 0.4 % (0-0.5); Lymphocytes Absolute Auto 2.97 K/mm3 (0.9-3.2); Lymphocytes Percent Auto 24.9 % (18.3-44.2); Mean Corpuscular HGB Conc 36.7 g/dl (32-36); Mean Corpuscular Hemoglobin 34.4 pg (26-34); Mean Corpuscular Volume 93.9 fl (80-100); Mean Platelet Volume 11.6 fl (7.4-10.4); Monocytes Absolute Auto 0.5 K/mm3 (0.1-0.6); Monocytes Percent Auto 4.2 % (2.6-8.5); Neutrophils Absolute Auto 8.4 K/mm3 (1.3-6.7); Platelet Count Result 278 k/mm3 (150-375); Red Blood Count 3.63 M/mm3 (4.2-5.4); Red Cell Distribution Width 12.7 % (11.5-14.5); White Blood Count 11.9 K/mm3 (4.5-10.0)
[2020-09-21 19:48] LABS: Amphetamine Screen Urine Negative (Negative); Barbiturate Screen Urine Negative (Negative); Benzodiazepines Screen Urine Negative (Negative); Cannabinoid Screen Urine Positive (Negative); Cocaine Screen Urine Negative (Negative); Methadone Screen Urine Negative (Negative); Opiate Screen Urine Negative (Negative); Phencyclidine Screen Urine Negative (Negative)
[2020-09-21] MEDS: LACTATED RINGERS 1,000 ML 75 ML IV CONT (21:42)
[2020-09-21] MEDS: AMPICILLIN 2 GM/NS 100 ML 2 GM/100 ML BAG IVPB (21:43)
[2020-09-22] VITALS (10 sets, daily range): BP systolic 124–138; BP diastolic 71–83; PULSE 61–76; TEMP 36.2–36.8
[2020-09-22] MEDS: AMPICILLIN 1 GM/NS 50 ML 1 GM/50 ML BAG IVPB ×6 (01:39→21:56)
[2020-09-22] MEDS: diphenhydrAMINE HCl INJ 50 MG/ML VIAL 25 MG IV PUSH (02:58)
--- NOTE | 2020-09-22 09:01 | PM.IMHP ---
H&P: HPI History of Present Illness Date/Time: 09/22/20 09:01 Chief Complaint: mucus plug, contractions, leaking Narrative: Samantha is a at 34.3 who presented yesterday for rule out rupture of membranes. Starting Wednesday night started having little gushes, only when she went to the bathroom. She called me yesterday morning re this and was told to come in for evaluation. She states this same thing happened with her daughter at 37 weeks. she reports irregular contractions and has had mucous discharge for several days. Denies vaginal itching, irritation, or odor. otherwise complicated by tobacco use and bipolar disorder, unmedicated. Review of Systems Review of Systems: All systems reviewed & are unremarkable except as noted in HPI and below PMFSH Past Medical History Medical History (Updated 09/22/20 @ 09:06 by Vidhya Hamm MD) ADHD Bipolar disorder Chronic bronchitis PCOS (polycystic ovarian syndrome) PIH ( induced hypertension) Surgical History Surgical History (Updated 08/24/19 @ 15:33 by Elizabeth White NP) History of back surgery Family History Family History Mother Hypertension Sibling Hypertension Father Hypertension Social History Social History Smoking packs per day: 1 Smoking cigarettes per day: 20.0 Years smoked: 9 Smoking pack-years: 9.00 Smoking status: Current every day smoker Tobacco type: cigarettes Second hand tobacco smoke exposure: Yes Additional smoking assessment comments: Pt has cut down to 1/4 PPD during Substance use: former Substance use type: marijuana Other substance usage details: 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 Gender identity (if verbalized by the patient): Female Spiritual care concerns: No Meds Home Medications and Allergies Home Medications Medication Instructions Recorded Confirmed Type labetalol 400 mg PO Q12H #60 tablet 08/27/19 Rx Allergies Allergy/AdvReac Type Severity Reaction Status Date / Time methylphenidate Allergy Unknown Hives Verified 08/19/19 15:52 metoclopramide [From Reglan] AdvReac Agitated Verified 08/19/19 15:52 Vital Signs Vital Signs - 24 hr 09/21/20 18:12 09/21/20 18:15 09/21/20 18:30 Temperature Pulse Rate 96 97 75 Blood Pressure 127/81 128/77 127/68 09/21/20 18:45 09/21/20 19:00 09/21/20 21:00 Temperature 97.5 F L 98.1 F Pulse Rate 81 Blood Pressure 114/60 09/21/20 23:00 09/21/20 23:48 09/22/20 01:00 Temperature 97.6 F 97.1 F L Pulse Rate 74 Blood Pressure 137/84 09/22/20 03:00 09/22/20 04:23 09/22/20 05:00 Temperature 97.4 F L 98.2 F Pulse Rate 64 Blood Pressure 135/83 09/22/20 06:27 Temperature 97.4 F L Pulse Rate 64 Blood Pressure 132/82 Exam Const: General: no acute distress Resp: Effort & Inspection: normal respiratory effort Auscultation: clear to auscultation bilaterally Cardio: Rate: regular rate Rhythm: regular rhythm GI: GI Palp: Yes Soft to palpation : External Female Exam: normal external appearance Speculum Exam - Vagina: normal appearance of the vagina and normal vaginal discharge (white, copious.) Speculum Exam - Cervix: normal appearance of the cervix and Cervical os closed Amniotic Fluid: no fluid Other: on valsalva, no fluid from os. no pooling. only white creamy discharge. FHT category 1 irregular contractions Extrem: General: normal to inspection H&P: Results Labs Labs: Short CBC 09/21/20 Range/Units 19:21 WBC 11.9 H (4.5-10.0) K/mm3 Hgb 12.5 (12.0-15.0) g/dL Hct 34.1 L (37.0-47.0) % Plt Count 278 (150-375) k/mm3 Assessment and Plan Assessment and plan (1) Vaginal discharge during : Code(s): O26.899 - Other specified related conditions, unspecified trimester; N89.8 - Other specified noninflammatory disorders of vagina
[2020-09-22] MEDS: BETAMETHASONE SOD PHOS/ACETATE 30 MG/5 ML VIAL 12 MG IM (09:49)
[2020-09-23] VITALS (9 sets, daily range): BP systolic 121–134; BP diastolic 62–87; PULSE 51–66; TEMP 36.1–36.5
[2020-09-23] MEDS: AMPICILLIN 1 GM/NS 50 ML 1 GM/50 ML BAG IVPB ×2 (01:56→06:37)
[2020-09-23] MEDS: diphenhydrAMINE HCl INJ 50 MG/ML VIAL 25 MG IV PUSH (01:58)
--- NOTE | 2020-09-23 08:29 | P.PNOB_ITS ---
OB - PN: Subj Subjective Date/time seen: 09/23/20 08:29 No Contrax, no LOF, no Vaginal Bleeding, OB - PN: Obj Data Labs CBC & Chem 7: 09/21/20 19:21 Imaging Radiologist's impression: Impressions Obstetrics Ultrasound 09/22/20 08:46 IMPRESSION: 1. Single living fetus in vertex presentation. 2. Polyhydramnios. Obstetrics Ultrasound 09/23/20 07:42 Impression: 1: Single living intrauterine in vertex presentation. 2: Normal EKTA measures 18.6 cm. OB - PN A/P Assessment and Plan (1) Amniotic fluid leaking: Code(s): O42.90 - Premature rupture of membranes, unspecified as to length of time between rupture and onset of labor, unspecified weeks of gestation Status: Acute Assessment and Plan: this patient is a 29 y/o multiparous female who presented for LOF, Appears to be intact at this time. Reassuring FHT's, Concern over declining EKTA - still normal. To follow up tomorrow with ekta, nst, and provider visit Time Spent With Patient Time: Total time spent is greater than 50% in coordination of care (as documented) at patient's floor/unit and/or counseling patient: Review of Systems Constitutional: Constitutional: Reports no additional constitutional compl aints, Denies fatigue, Denies headache(s), Denies lethargy and Denies weakness Eyes: Eyes: Reports no additional eye complaints, Denies blurry vision and Denies photophobia ENT: Reports as per HPI, Denies headache(s) and Denies neck pain Cardiovascular: Cardiovascular: Denies chest pain, Denies diaphoresis, Denies leg edema, Denies palpitations and Denies dyspnea Respiratory: Respiratory: Denies hemoptysis, Denies dyspnea and Denies wheezing Gastrointestinal: Gastrointestinal: Denies abdominal pain, Denies melena, Denies bloating, Denies hematochezia, Denies nausea and Denies vomiting Genitourinary: Genitourinary: Reports no additional female genitourinary complaints Musculoskeletal: Musculoskeletal: Denies joint swelling, Denies neck pain, Denies numbness and Denies stiffness Neurologic: Denies Abnormal speech present, Denies confusion, Denies headache(s), Denies numbness and Denies weakness Psychiatric: Psychiatric: Denies anxiety, Denies confusion, Denies depression, Denies homicidal ideation and Denies suicidal ideation Endocrine: Endocrine: Denies fatigue and Denies palpitations Allergic/Immunologic: Allergic/Immunologic: Denies wheezing Exam Const: General: comfortable, no acute distress and alert Resp: Effort & Inspection: normal respiratory effort Auscultation: no crackles, no rales and no rhonchi Cardio: Rate: regular rate Heart sounds: no click, no murmurs and no rubs GI: Inspection: non-distended GI Palp: No Tenderness to palpation present (GI) Auscultation: normal bowel sounds Other: Cervix - 1/ thick Extrem: General: normal to inspection, no pedal edema and no calf tenderness
[2020-09-23] MEDS: BETAMETHASONE SOD PHOS/ACETATE 30 MG/5 ML VIAL 12 MG IM (10:07)
== END 2020-09-23 10:25 | disposition home or self-care (01) ==
PROVIDERS: Admitting Provider Obstetrics & Gynecology; PCP Internal Medicine; Visit Provider Obstetrics & Gynecology
DX: O42.90 Premature rupture of membranes, unspecified as to length of time between rupture and onset of labor, unspecified weeks of gestation (principal); O26.899 Other specified pregnancy related conditions, unspecified trimester; N89.8 Other specified noninflammatory disorders of vagina; O99.340 Other mental disorders complicating pregnancy, unspecified trimester; F31.9 Bipolar disorder, unspecified; O99.330 Smoking (tobacco) complicating pregnancy, unspecified trimester; F17.210 Nicotine dependence, cigarettes, uncomplicated; Z3A.34 34 weeks gestation of pregnancy
CPT/HCPCS: 36415; 76815; 80307; 84112; 85025; 96365; 96372; 96375; 96376; G0378; G0379; J0290; J0702; J1200; J7120

== ENCOUNTER 2020-09-26 01:19 | Inpatient (IN) | payer OTHER, SELFPAY ==
[2020-09-26] VITALS (110 sets, daily range): BP systolic 105–148; BP diastolic 59–111; PULSE 60–84; RESP 16–20; TEMP 36.4–36.8; O2SAT 92–100; BMI 36.3
[2020-09-26 02:00] LABS: Basophils Percent Auto 0.2 % (0.2-1.2); Eosinophils Percent Auto 0.1 % (0-4.4); Hematocrit 36.4 % (37.0-47.0); Hemoglobin 13.2 g/dL (12.0-15.0); Immature Granulocyte Absolute 0.11 K/mm3 (0.00-0.031); Immature Granulocyte Percent A 0.6 % (0-0.5); Lymphocytes Absolute Auto 2.45 K/mm3 (0.9-3.2); Lymphocytes Percent Auto 12.4 % (18.3-44.2); Mean Corpuscular HGB Conc 36.3 g/dl (32-36); Mean Corpuscular Hemoglobin 34.1 pg (26-34); Mean Corpuscular Volume 94.1 fl (80-100); Mean Platelet Volume 11.2 fl (7.4-10.4); Monocytes Percent Auto 4.9 % (2.6-8.5); Neutrophils Absolute Auto 16.2 K/mm3 (1.3-6.7); Neutrophils Percent Auto 81.8 % (45.5-73.1); Platelet Count Result 301 k/mm3 (150-375); Red Blood Count 3.87 M/mm3 (4.2-5.4); Red Cell Distribution Width 12.8 % (11.5-14.5); White Blood Count 19.8 K/mm3 (4.5-10.0)
[2020-09-26] MEDS: AMPICILLIN 2 GM/NS 100 ML 2 GM/100 ML BAG IVPB (02:01)
[2020-09-26] MEDS: LACTATED RINGERS 1,000 ML 125 ML IV CONT ×2 (02:01→03:00)
[2020-09-26] MEDS: ONDANSETRON INJ 4 MG/2 ML VIAL IV PUSH (02:34)
--- NOTE | 2020-09-26 03:09 | WPDANESEPPF ---
Anes - Initial Pre Proc Eval Procedure: labor epidural Date/Time: 09/26/20 03:09 Surgeon: Drew Diaz MD Pre Op Diagnosis: labor pain Pre Op Diagnosis: Contractions Patient Data Age: 29 Gender: F Height: 1.63 m Weight: 96 kg Last Vital Signs Pulse 68 09/26/20 03:09 BP 120/64 09/26/20 03:09 Pulse Ox 98 09/26/20 03:07 Allergies Allergy/AdvReac Type Severity Reaction Status Date / Time methylphenidate Allergy Unknown Hives Verified 08/19/19 15:52 metoclopramide [From Reglan] AdvReac Agitated Verified 08/19/19 15:52 Home Medications Medication Instructions Recorded Confirmed Type labetalol 400 mg PO Q12H #60 tablet 08/27/19 Rx Laboratory Tests 09/26/20 09/26/20 09/26/20 01:54 01:54 01:55 WBC 19.8 K/mm3 H K/mm3 (4.5-10.0) RBC 3.87 M/mm3 L M/mm3 (4.2-5.4) Hgb 13.2 g/dL g/dL (12.0-15.0) Hct 36.4 % L % (37.0-47.0) MCV 94.1 fl fl (80-100) MCH 34.1 pg H pg (26-34) MCHC 36.3 g/dl H g/dl (32-36) RDW 12.8 % % (11.5-14.5) Plt Count 301 k/mm3 k/mm3 (150-375) MPV 11.2 fl H fl (7.4-10.4) Immature Gran % (Auto) 0.6 % H % (0-0.5) Neut % (Auto) 81.8 % H % (45.5-73.1) Lymph % (Auto) 12.4 % L % (18.3-44.2) [place] % (Auto) 4.9 % % (2.6-8.5) Eos % (Auto) 0.1 % % (0-4.4) Baso % (Auto) 0.2 % % (0.2-1.2) Lymph # (Auto) 2.45 K/mm3 K/mm3 (0.9-3.2) [place] # (Auto) 1.0 K/mm3 H K/mm3 (0.1-0.6) Eos # (Auto) 0.0 K/mm3 K/mm3 (0-0.3) Baso # (Auto) 0.0 K/mm3 K/mm3 (0.0-0.1) Abs Immat Gran (auto) 0.11 K/mm3 H K/mm3 (0.00-0.031) Absolute Neuts (auto) 16.2 K/mm3 H K/mm3 (1.3-6.7) Absolute Nucleated RBC 0.0 K/mm3 K/mm3 (0.0-0.012) Nucleated RBC % 0.0 % % (0.0-0.2) RPR Pending Blood Type A Positive Antibody Screen Negative Patient hx anesthesia problems: none Family hx anesthesia problems: none PMFSH Past Medical History Medical History ADHD Bipolar disorder Chronic bronchitis PCOS (polycystic ovarian syndrome) PIH ( induced hypertension) Surgical History Surgical History History of back surgery Family History Family History Mother Hypertension Sibling Hypertension Father Hypertension Social History Social History Smoking packs per day: 1 Smoking cigarettes per day: 20.0 Years smoked: 9 Smoking pack-years: 9.00 Smoking status: Current every day smoker Tobacco type: cigarettes Second hand tobacco smoke exposure: Yes Additional smoking assessment comments: Pt has cut down to 1/4 PPD during Substance use: current Substance use type: marijuana Other substance usage details: 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 Gender identity (if verbalized by the patient): Female Spiritual care concerns: No Anes - Eval Final PreProcedure Day of Procedure 09/26/20 03:09 Patient weight: obese Heart: regular rate and rhythm Lungs: clear to auscultation and normal air movement Airway: Mallampati scale class II Neurological: alert and oriented ASA classification: III Emergent: no Anesthetic plan: proceed Anesthesia type and monitoring: regional epidural and standard monitoring Informed Consent: The patient's anesthetic plan and its attendant risks and benefits were discussed with the patient/family/POA. Questions were solicited and answers provided to the satisfaction of the patient/family/POA.
[2020-09-26] MEDS: AMPICILLIN 1 GM/NS 50 ML 1 GM/50 ML BAG IVPB ×2 (07:05→11:10)
--- NOTE | 2020-09-26 07:54 | WPDOBADMIT ---
Obstetrics - Admit Note Admission Note: record reviewed. No pertinent additions to the history and/or any subsequent changes in the physical findings that are not consistent with the expected course of the were found. Additions to the history and/or subsequent changes in the physical findings follow. None.
[2020-09-26 09:27] LABS: Rapid Plasma Reagin Non-Reactive (NonReactive)
[2020-09-26] MEDS: OXYTOCIN 30 UNITS/NS 500 ML 30 UNITS/500 ML BAG IV CONT (11:15)
--- NOTE | 2020-09-26 12:22 | WPDOBADMIT ---
Obstetrics - Admit Note Admission Note: 27 y/o @ 25w2d here in spontaneous labor. Questionable pprom. Some fluid in vagina on exam. There is a bag intact which was ruptured. record reviewed. No pertinent additions to the history and/or any subsequent changes in the physical findings that are not consistent with the expected course of the were found. Additions to the history and/or subsequent changes in the physical findings follow. None.
--- NOTE | 2020-09-26 12:24 | PM.OBPRVD ---
OB - Delivery Note Procedure Delivery date: 09/26/20 events: Labor < 37 Weeks and Premature Rupture of Membrane Intrapartal events: None Induction method: none Delivery monitor: external FHT, external uterine and internal uterine Route of delivery: Episiotomy description: None Laceration Description: None Quantitative Blood Loss (ml): 21 Anesthesia type: Epidural Narrative: Mother and baby in stable condition. Peds present at delivery. Cord gasses collected and handed off to staff. Baby Date of : 09/26/20 Weeks of gestation at delivery: 35 Weight (pounds): 5 Weight (ounces): 0 presentation: vertex position: Left Occiput Anterior Placenta delivery description: Spontaneous cord vessel description: Delayed Cord Clamping score one minute: 9 score five minutes: 9
[2020-09-26] MEDS: OXYTOCIN 30 UNITS/NS 500 ML 30 UNITS/500 ML BAG 125 UNITS IV CONT (12:44)
[2020-09-26] MEDS: WITCH HAZEL 40 PADS 1 PAD TOPICAL (14:06)
[2020-09-26] MEDS: BENZOCAINE 20% AER SPR (*SP) 56 GM CAN 1 SPRAY TOPICAL (14:06)
[2020-09-26] MEDS: ACETAMINOPHEN 325 MG TABLET 650 MG PO (14:06)
[2020-09-26] MEDS: IBUPROFEN 600 MG TABLET PO (14:34)
--- NOTE | 2020-09-26 14:54 | OBPPTRN ---
Patient transferred to post room # 279 via wheelchair. Support person present. Oriented to unit, room, information board, rooming in, admission packet and security measures. Patient verbalizes understanding.
[2020-09-26] MEDS: HYDROcodone/acetaminophen (*CRX) 5-325 MG TABLET 1 TAB PO (17:08)
[2020-09-27] MEDS: IBUPROFEN 600 MG TABLET PO ×2 (04:10→09:13)
[2020-09-27 04:54] LABS: Hematocrit 35.1 % (37.0-47.0); Hemoglobin 12.8 g/dL (12.0-15.0)
--- NOTE | 2020-09-27 07:44 | PM.OBPNVD ---
OB - PN: Subj Subjective Date/time seen: 09/27/20 07:44 Patient comments: no complaints baby status: doing well OB - PN: Obj Data Labs CBC & Chem 7: 09/27/20 04:31 Labs: Laboratory Results - last 24 hr 09/26/20 09/27/20 01:54 04:31 Hgb 12.8 Hct 35.1 L RPR Non-reactive OB - PN A/P Plan day: 1 Plan: routine care Time Spent With Patient Time: Total time spent is greater than 50% in coordination of care (as documented) at patient's floor/unit and/or counseling patient: Review of Systems Review of Systems: All systems reviewed & are unremarkable except as noted in HPI and below Exam Const: General: cooperative and healthy appearing Psych: Affect: normal affect Attitude: cooperative Thought process: Normal thought process present Thought content: Yes Normal thought content present Judgement: Good judgement present (Psych)
[2020-09-27 07:55] VITALS: BP 145/85; PULSE 63; RESP 18; TEMP 36.3; O2SAT 99
--- NOTE | 2020-09-27 08:36 | WPDANLDPN2 ---
Anes-Prog Note L&D Date/Time: 09/27/20 08:36 Comfortable throughout: labor and delivery Neuraxial method: epidural Epidural/Spinal procedure site: clean & non-tender Neuro status: Neuro function grossly intact. Cardiovascular status: normal Respiratory status: normal Airway patency: baseline Mental status: baseline Post-Op hydration status: normal Vital Signs: Last Vital Signs Temp 36.3 C L 09/27/20 07:55 Pulse 63 09/27/20 07:55 Resp 18 09/27/20 07:55 BP 145/85 H 09/27/20 07:55 Pulse Ox 99 09/27/20 07:55 Pain score (VAS): 0 Post-procedural complaints: none Patient feedback: Patient satisfied with anesthetic care.
[2020-09-27] MEDS: DOCUSATE SODIUM 100 MG CAPSULE PO (09:13)
[2020-09-27] MEDS: MULTIVIT/MIN/PREN/FOL AC/IRON TABLET 1 TAB PO (09:13)
[2020-09-27 12:22] VITALS: BP 140/72; PULSE 75; RESP 16; TEMP 36.4; O2SAT 99
[2020-09-27 20:00] VITALS: BP 124/74; PULSE 71; RESP 16; TEMP 36.9; O2SAT 96
[2020-09-28 08:00] VITALS: PULSE 130; RESP 36; TEMP 36.3
[2020-09-28] MEDS: MULTIVIT/MIN/PREN/FOL AC/IRON TABLET 1 TAB PO (08:40)
[2020-09-28] MEDS: BENZOCAINE 20% AER SPR (*SP) 56 GM CAN 1 SPRAY TOPICAL (08:40)
[2020-09-28] MEDS: DOCUSATE SODIUM 100 MG CAPSULE PO (08:40)
[2020-09-28] MEDS: WITCH HAZEL 40 PADS 1 PAD TOPICAL (08:40)
[2020-09-28] MEDS: IBUPROFEN 600 MG TABLET PO (08:40)
--- NOTE | 2020-09-28 09:33 | PC.NURSE ---
Patient was given the opportunity to view the discharge video Mother & Baby Care, The First Two Weeks and to ask questions. Patient declined viewing the video and has been given the mother/baby guide for home reference.
--- NOTE | 2020-09-28 09:33 | PC.NURSE ---
Self care and infant care discharge instructions given including follow up visit date and time. Mother verbalized understanding. No questions or concerns voiced. Very pleasant and cooperative. FOB at side.
--- NOTE | 2020-09-28 12:23 | PM.OBPNVD ---
OB - PN: Subj Subjective Date/time seen: 09/28/20 12:23 Patient comments: no complaints, pain well controlled and tolerating diet OB - PN: Obj Data Labs CBC & Chem 7: 09/27/20 04:31 OB - PN A/P Plan day: 2 Plan: routine care and discharge home Time Spent With Patient Time: Total time spent is greater than 50% in coordination of care (as documented) at patient's floor/unit and/or counseling patient: Exam Const: General: comfortable and no acute distress Resp: Effort & Inspection: normal respiratory effort Auscultation: no rales, no rhonchi and no wheezes Cardio: Rate: regular rate Heart sounds: no click, no murmurs and no rubs GI: GI Palp: Yes Soft to palpation and No Tenderness to palpation present (GI) Auscultation: normal bowel sounds Extrem: General: normal to inspection, no pedal edema and no calf tenderness
--- NOTE | 2020-09-28 12:25 | PM.OBDSVD ---
DS: Admitting Diagnosis Admitting Diagnosis SROM DS: Discharge Diagnosis Discharge Diagnosis (1) delivery: Code(s): O60.10X0 - labor with delivery, unspecified trimester, not applicable or unspecified Status: Acute OB - DS: Summary OB Procedures : None OB Procedures Intrapartum: Spontaneous Vag Delivery OB Procedures: : None Time Spent with Patient Time attestation: Total time spent providing and/or coordinating discharge services: DS: Data Data Completed and Pending Pending studies at discharge: Pending at discharge 09/26/20 12:17 Surgical [PTH] Routine Discharge Plan Discharge Discharging Clinician: Drew Diaz Patient Disposition: Home, Self-Care Activity: may shower and pelvic rest Diet: regular Discharge Instructions: Education: Mom and Baby Guide Given to: Mother Follow-Up: Call your delivering provider's office for an appointment to be seen in: 4 Weeks Mom and baby should come to the [facility] for the follow-up appointment. Appointment Date/Time: Wednesday, September 30, 2020 at 10:00 am What to expect at your follow-up visit: Blood Pressure Check Physical Assessment Call [phone] if you are unable to keep your appointment time. BREAST CARE: * Wear a snug supportive bra. * For engorgement discomfort: Breast Feeding: * Apply warm moist washcloths * Express milk as needed to relieve engorgement * Wear loose clothing Bottle Feeding: * May apply ice packs * For sore nipples: * Identify correct latch-on * Apply warm moist washcloths before and after nursing * Air dry nipples after nursing * May apply Lansinoh cream to nipples EPISIOTOMY/PERINEAL CARE: * Until bleeding stops, use your ayad bottle after urinating * Change your pad frequently throughout the day * You may take sitz baths several times a day (fill your bathtub with warm water and soak for 20 minutes.) Do NOT bathe in the water * No tub baths until seen by your physician - You may shower ACTIVITY: * Rest as much as possible. * Do not exercise or lift anything heavier than your baby (such as laundry or other children.) * Avoid stairs or driving as much as possible. * Do not put anything into the vagina. No douching, tampons, or sexual activity until seen by physician. NOTIFY PHYSICIAN IF YOU HAVE ANY QUESTIONS OR IF ANY OF THE FOLLOWING SYMPTOMS OCCUR: * If your episiotomy becomes red, swollen, or more painful than what you have experienced in the hospital. * If your vaginal bleeding becomes foul smelling. * If your vaginal bleeding becomes more heavy than a period or if your bleeding changes from pink to bright red. However, you may pass an occasional walnut-sized clot once or twice for the first week . * If you experience a sharp, shooting pain in you calves. * If you discover a hard, reddened area on your breast or if you experience flu-like symptoms. DIET: * Eat regular, well-balanced meals. * Drink plenty of fluids daily. If , drink to thirst. Patient Instructions: Antibiotic Form, How to Stop Smoking (GEN) Stand Alone Forms: General Discharge Information Follow-up/Referrals: Drew Diaz MD [Physician] - Discharge Medications: No Action No Home Medications RF: 0 Date of admission: 09/26/20 01:40 Primary Care Provider: Sandi,Vahid Angeles Admitting Provider: Drew Diaz Attending physician on admission: Drew Diaz Condition: Stable
[2020-09-30 09:35] VITALS: BP 140/87; PULSE 65; RESP 20; TEMP 36.4; O2SAT 99
== END 2020-09-28 14:20 | disposition home or self-care (01) | DRG 560 ==
LOC: ANHLDR 01:47 → ANHOB2 14:55
PROVIDERS: Advanced Practice Midwife; Admitting Provider Obstetrics & Gynecology; PCP Internal Medicine; Visit Provider Obstetrics & Gynecology
DX: O99.334 Smoking (tobacco) complicating childbirth (principal); F17.210 Nicotine dependence, cigarettes, uncomplicated; O99.824 Streptococcus B carrier state complicating childbirth; Z3A.35 35 weeks gestation of pregnancy; Z37.0 Single live birth
CPT/HCPCS: 36415; 85014; 85018; 85025; 86592; 86850; 86900; 86901; 88307; A9270; J0290; J2405; J2590; J2795; J7120

== ENCOUNTER 2021-07-15 06:01 | Inpatient (IN) | payer OTHER, SELFPAY ==
[2021-07-15] VITALS (96 sets, daily range): BP systolic 83–165; BP diastolic 53–138; PULSE 56–105; RESP 16–30; TEMP 36.3–37.1; O2SAT 95–100; BMI 33.9
--- NOTE | ~2021-07-15 | US_ITS ---
US pelvic complete DATE: 07/15/2021 16:33 INDICATION: Pelvic and abdominal pain 7 hours TECHNIQUE: Real-time imaging via transabdominal approach COMPARISON: None FINDINGS: The uterus measures 19.5 cm height, 12.6 cm transverse and 7.6 cm anteroposterior dimension . Heterogeneous echogenic endometrial echoes measure up to 3.5 cm AP dimension, consistent with retai selma products of conception. The left ovary is not visualized. The right ovary measures 2.2 x 3.5 x 1.6 cm. IMPRESSION: Prominent echoes within the endometrial cavity consistent with retained products of kirsten ption 7 hours Reviewed, dictated and finalized at [facility]. Reviewed, dictated and finalized at [facility]. IMPRESSION: Prominent echoes within the endometrial cavity consistent with lina ined products of conception 7 hours
[2021-07-15] MEDS: LACTATED RINGERS 1,000 ML 75 ML IV CONT (06:43)
[2021-07-15] MEDS: MAGNESIUM SULF 4 GM/WATER100ML 4 GM/100 ML BAG IVPB (06:43)
[2021-07-15] MEDS: BETAMETHASONE SOD PHOS/ACETATE 30 MG/5 ML VIAL 12 MG IM (07:02)
[2021-07-15] MEDS: MAGNESIUM SULF 20GM/WATER500ML 500 ML 300 MG IV CONT (07:19)
--- NOTE | 2021-07-15 07:19 | PC.NURSE ---
Dr. Diaz wants pt to receive an additional 2gm Magnesium Sulfate bolus to total a 6 gm bolus- pump set to deliver the 2 gm over the next 10 mins- settings verified by Evy Rush RN.
[2021-07-15] MEDS: fentaNYL CITRATE INJ (*CRX) 100 MCG/2 ML VIAL IV PUSH (07:26)
[2021-07-15 07:44] LABS: Appearance Urine Slightly Cloudy (Clear); Bilirubin Urine 1+ (Negative); Blood Urine 2+ (Negative); Color Urine Yellow (Yellow); Glucose Urine UA Negative (Negative); Ketones Urine Negative (Negative); Leukocyte Esterase Ur Negative LEU/UL (Negative); Nitrate Urine Negative (Negative); Protein Urine Negative (Negative)
[2021-07-15 07:49] LABS: Mucus Urine Rare /lpf; RBC Urine 0-2 /hpf (0-2); Squamous Epithelial Cell Urine Many /hpf (Few)
[2021-07-15 07:53] LABS: Add Urine Microscopic? YES
[2021-07-15] MEDS: AMPICILLIN 2 GM/NS 100 ML 2 GM/100 ML BAG IVPB (07:53)
[2021-07-15 08:07] LABS: Basophils Percent Auto 0.2 % (0.2-1.2); Eosinophils Absolute Auto 0.1 K/mm3 (0-0.3); Eosinophils Percent Auto 0.8 % (0-4.4); Hematocrit 32.3 % (37.0-47.0); Hemoglobin 11.9 g/dL (12.0-15.0); Immature Granulocyte Absolute 0.09 K/mm3 (0.00-0.031); Immature Granulocyte Percent A 0.5 % (0-0.5); Lymphocytes Absolute Auto 2.86 K/mm3 (0.9-3.2); Lymphocytes Percent Auto 17.3 % (18.3-44.2); Mean Corpuscular HGB Conc 36.8 g/dl (32-36); Mean Corpuscular Hemoglobin 35.1 pg (26-34); Mean Corpuscular Volume 95.3 fl (80-100); Mean Platelet Volume 11.3 fl (7.4-10.4); Monocytes Absolute Auto 0.9 K/mm3 (0.1-0.6); Monocytes Percent Auto 5.5 % (2.6-8.5); Neutrophils Absolute Auto 12.5 K/mm3 (1.3-6.7); Neutrophils Percent Auto 75.7 % (45.5-73.1); Platelet Count Result 317 k/mm3 (150-375); Red Blood Count 3.39 M/mm3 (4.2-5.4); Red Cell Distribution Width 12.9 % (11.5-14.5); White Blood Count 16.6 K/mm3 (4.5-10.0)
--- NOTE | 2021-07-15 08:08 | PM.IMHP ---
H&P: HPI History of Present Illness Date/Time: 07/15/21 08:08 Chief Complaint: Painful uterine contractions Narrative: this patient is a 30-year-old 5 para 1 1 2 2 at 31 weeks gestation who presented in labor. She has a history of . She had a delivery at 35 weeks gestation previously. She has history of bipolar disorder, sick about placenta, small for gestational age, cholelithiasis with obstruction. she has a history of preeclampsia. She denies any loss of fluid or vaginal bleeding. But she began to contract several hours ago at the became severely painful. She denies any nausea, vomiting, fever, chills. She denies any respiratory symptoms. She denies any urinary symptoms. Review of Systems Review of Systems: All systems reviewed & are unremarkable except as noted in HPI and below Constitutional: Constitutional: Denies chills, Denies fatigue, Denies fever(s) and Denies weakness Eyes: Eyes: Denies blurry vision, Denies change in vision, Denies loss of peripheral vision, Denies loss of vision, Denies other visual disturbances and Denies eye pain ENT: Denies vertigo, Denies dizziness, Denies hearing loss, Denies mouth pain, Denies nasal obstruction, Denies neck mass and Denies neck pain Cardiovascular: Cardiovascular: Denies chest pain, Denies diaphoresis, Denies syncope, Denies leg edema and Denies dyspnea Respiratory: Respiratory: Denies chest congestion, Denies cough, Denies hemoptysis, Denies dyspnea and Denies wheezing Gastrointestinal: Gastrointestinal: Denies abdominal pain, Denies constipation, Denies diarrhea, Denies nausea and Denies vomiting Genitourinary: Genitourinary: Denies hematuria, Denies change in libido, Denies nocturia, Denies genital lesions, Denies flank pain and Denies urinary urgency Musculoskeletal: Musculoskeletal: Denies abnormal gait, Denies back pain, Denies myalgias, Denies arthralgias, Denies joint swelling, Denies muscle weakness and Denies neck pain Integumentary/Breasts: Skin/Breast: Denies swelling, Denies breast pain, Denies breast mass, Denies dry skin, Denies nipple discharge, Denies unusual bruising and Denies jaundice Neurologic: Denies Neuro-related abnormal movements, Denies Abnormal speech present, Denies abnormal gait, Denies behavioral changes, Denies confusion, Denies vertigo, Denies dizziness, Denies syncope, Denies loss of vision, Denies memory loss, Denies convulsions and Denies weakness Psychiatric: Psychiatric: Denies abnormal sleep pattern, Denies behavioral changes, Denies change in libido, Denies confusion, Denies depression, Denies anhedonia and Denies memory loss Endocrine: Endocrine: Reports no additional endocrine complaints, Denies change in libido and Denies fatigue Hematologic/Lymphatic: Hematologic/Lymphatic: Reports no additional hematologic/lymphatic complaints Allergic/Immunologic: Allergic/Immunologic: Reports no additional allergic/immunologic complaints and Denies wheezing PMFSH Past Medical History Medical History ADHD Bipolar disorder Chronic bronchitis PCOS (polycystic ovarian syndrome) PIH ( induced hypertension) Surgical History Surgical History History of back surgery Family History Family History Mother Hypertension Sibling Hypertension Father Hypertension Social History Social History Smoking packs per day: 0.50 Smoking cigarettes per day: 10.0 Years smoked: 11 Smoking pack-years: 5.50 Smoking status: Current every day smoker Tobacco type: cigarettes Second hand tobacco smoke exposure: Yes Additional smoking assessment comments: Pt has cut down to 1/4 PPD during Substance use: current Substance use type: marijuana Other substance usage details: pt reports heroin use
--- NOTE | 2021-07-15 08:09 | WPDANESEPPF ---
Anes - Initial Pre Proc Eval Date/Time: 07/15/21 08:09 Surgeon: Drew Diaz MD Pre Op Diagnosis: Contractions Patient Data Age: 30 Gender: F Height: Weight: Last Vital Signs Pulse 97 07/15/21 08:05 BP 165/138 H 07/15/21 08:05 Pulse Ox 100 07/15/21 07:50 Allergies Allergy/AdvReac Type Severity Reaction Status Date / Time methylphenidate Allergy Unknown Hives Verified 08/19/19 15:52 metoclopramide [From Reglan] AdvReac Agitated Verified 08/19/19 15:52 Home Medications Medication Instructions Recorded Confirmed Type aspirin 81 mg chewable tablet 81 mg PO DAILY 07/15/21 07/15/21 History sertraline 50 mg tablet (Zoloft) 50 mg PO DAILY 07/15/21 07/15/21 History trazodone 50 mg tablet 50 mg PO HS 07/15/21 07/15/21 History Laboratory Tests 07/15/21 07/15/21 07/15/21 06:48 07:52 07:52 WBC 16.6 K/mm3 H K/mm3 (4.5-10.0) RBC 3.39 M/mm3 L M/mm3 (4.2-5.4) Hgb 11.9 g/dL L g/dL (12.0-15.0) Hct 32.3 % L % (37.0-47.0) MCV 95.3 fl fl (80-100) MCH 35.1 pg H pg (26-34) MCHC 36.8 g/dl H g/dl (32-36) RDW 12.9 % % (11.5-14.5) Plt Count 317 k/mm3 k/mm3 (150-375) MPV 11.3 fl H fl (7.4-10.4) Immature Gran % (Auto) 0.5 % % (0-0.5) Neut % (Auto) 75.7 % H % (45.5-73.1) Lymph % (Auto) 17.3 % L % (18.3-44.2) [place] % (Auto) 5.5 % % (2.6-8.5) Eos % (Auto) 0.8 % % (0-4.4) Baso % (Auto) 0.2 % % (0.2-1.2) Lymph # (Auto) 2.86 K/mm3 K/mm3 (0.9-3.2) [place] # (Auto) 0.9 K/mm3 H K/mm3 (0.1-0.6) Eos # (Auto) 0.1 K/mm3 K/mm3 (0-0.3) Baso # (Auto) 0.0 K/mm3 K/mm3 (0.0-0.1) Abs Immat Gran (auto) 0.09 K/mm3 H K/mm3 (0.00-0.031) Absolute Neuts (auto) 12.5 K/mm3 H K/mm3 (1.3-6.7) Absolute Nucleated RBC 0.0 K/mm3 K/mm3 (0.0-0.012) Nucleated RBC % 0.0 % % (0.0-0.2) Urine Color Yellow (Yellow) Urine Appearance Slightly cloudy (Clear) Urine pH 7.0 (5.0-9.0) Ur Specific [place] 1.020 (1.001-1.035) Urine Protein Negative mg/dL mg/dL (Negative) Urine Glucose (UA) Negative mg/dL mg/dL (Negative) Urine Ketones Negative mg/dL mg/dL (Negative) Ur Blood (Man) 2+ H (Negative) Urine Nitrate Negative (Negative) Urine Bilirubin 1+ H (Negative) Urine Urobilinogen 2.0 mg/dL H mg/dL (<2.0) Leukocyte Esterase Rfl Negative TURNER/UL TURNER/UL (Negative) Urine RBC 0-2 /hpf /hpf (0-2) Urine WBC 4-6 /hpf H /hpf Ur Squamous Epith Cells Many /hpf H /hpf (Few) Urine Mucus Rare /lpf /lpf RPR Pending Patient hx anesthesia problems: none Family hx anesthesia problems: none Results Review: All pre-operative results and documents have been reviewed as part of the pre-operative evaluation. [facility] Past Medical History Medical History ADHD Bipolar disorder Chronic bronchitis PCOS (polycystic ovarian syndrome) PIH ( induced hypertension) Surgical History Surgical History History of back surgery Family History Family History Mother Hypertension Sibling Hypertension Father Hypertension Social History Social History Smoking packs per day: 0.50 Smoking cigarettes per day: 10.0 Years smoked: 11 Smoking pack-years: 5.50 Smoking status: Current every day smoker Tobacco type: cigarettes Second hand tobacco smoke exposure: Yes Additional smoking assessment comments: Pt has cut down to 1/4 PPD during Substance use: current S
[2021-07-15 08:41] LABS: Amphetamine Screen Urine Negative (Negative); Barbiturate Screen Urine Negative (Negative); Benzodiazepines Screen Urine Negative (Negative); Cannabinoid Screen Urine Positive (Negative); Cocaine Screen Urine Negative (Negative); Methadone Screen Urine Negative (Negative); Opiate Screen Urine Negative (Negative); Phencyclidine Screen Urine Negative (Negative)
--- NOTE | 2021-07-15 09:00 | LDADM ---
This patient, Samantha Beach, was admitted to Labor/Delivery/Recovery on 07/15/21 at 06:01. Plans for labor, pain management and were discussed with patient. Patient/family oriented to hospital policies and general routines including ID bracelet, bed and alarms, visiting hours, pain management, procedures, bathroom and other care routines, personal items, smoking policy, room service/diet and guest tray routines, infant security routines, and visiting hours. Patient/Family are encouraged to report perceived risks to care and to ask questions if they do not understand what they are told or what they should do. See OBIX for further documentation.
[2021-07-15] MEDS: OXYTOCIN 30 UNITS/NS 500 ML 30 UNITS/500 ML BAG 999 UNITS IV CONT (09:22)
--- NOTE | 2021-07-15 09:28 | PM.OBPRVD ---
OB - Delivery Note Procedure Procedure: Normal spontaneous vaginal of pre term, 31 week gestation. Events: Other ( labor) Delivery augmentation: Rupture of Membranes Delivery monitor: External FHT and External Uterine Route of delivery: Episiotomy description: None Laceration Description: None Specimen: Yes Quantitative Blood Loss (ml): 105 Anesthesia type: Epidural Complications: None Narrative: 31 week gestation presented in labor, magnesium sulfate, antibiotics and steroids were administered. She was refractory to the magnesium sulfate and continued from a 1 cm dilated cervix to complete over about an hour and a half. Membranes were ruptured with complete cervix and the baby delivered with 1 push. No lacerations, placenta delivered immediately. Baby Date of : 07/15/21 Weeks of gestation at delivery: 31 Infant gender: Female presentation: vertex Placenta delivery description: Spontaneous Cord Vessel Description: 3 Vessels
[2021-07-15] MEDS: OXYTOCIN 30 UNITS/NS 500 ML 30 UNITS/500 ML BAG 125 UNITS IV CONT (09:55)
[2021-07-15] MEDS: IBUPROFEN 600 MG TABLET PO ×2 (11:17→20:00)
[2021-07-15] MEDS: BENZOCAINE 20% AER SPR (*SP) 56 GM CAN 1 SPRAY TOPICAL (11:17)
[2021-07-15] MEDS: WITCH HAZEL 40 PADS 1 PAD TOPICAL (11:17)
[2021-07-15] MEDS: oxyCODONE HCL (*CRX) 5 MG TAB IR 10 MG PO ×2 (12:22→20:02)
--- NOTE | 2021-07-15 12:30 | OBPPTRN ---
Patient transferred to post room #291 via wheelchair. Support person present. Oriented to unit, room, information board, rooming in, admission packet and security measures. Patient verbalizes understanding.
--- NOTE | 2021-07-15 13:30 | PC.NURSE ---
Pt asked to go outside in a wheelchair after asking the RN to call MD for further intervention. RN told pt that MD ordered a pelvic ultrasound to be done stat. Pt states she wants to go outside first. Pt's accompanied her in a wheelchair. Pt able to walk to the wheelchair and go outside. When pt came back up to her room with her she stated that she did not want to have the pelvic ultrasound done now. She states she began to feel better while she was outside. Pt is sitting on the toilet while she is talking to RN and states she is able to empty her bladder but states the pain felt better before she emptied her bladder. Pt still refusing any further intervention or pain med at this time. At 1445: offered pt to go for pelvic ultrasound and she refuses at this time but states when her bladder is full she will let RN know when she is ready to have it performed so that she can ensure that nothing else is going on.
[2021-07-15 14:15] LABS: Rapid Plasma Reagin Non-Reactive (NonReactive)
[2021-07-15] MEDS: traZODone HCL 50 MG TABLET PO (22:20)
[2021-07-16 05:55] LABS: Hematocrit 32.8 % (37.0-47.0); Hemoglobin 11.8 g/dL (12.0-15.0)
[2021-07-16 07:45] VITALS: BP 136/86; PULSE 63; RESP 18; TEMP 36.9; O2SAT 100
--- NOTE | 2021-07-16 07:57 | P.PNOB_ITS ---
OB - PN: Subj Subjective Date/time seen: 07/16/21 07:57 pt pumping during visit,doing well, complaints of cramping with pumping, baby at [facility] and would like to be dc'd today. occasional elevated bp, denies headaches, visual changes, epigastric pain OB - PN: Obj Data Labs CBC & Chem 7: 07/16/21 05:44 Labs: Laboratory Results - last 24 hr 07/15/21 07/15/21 07/15/21 06:48 07:52 07:52 WBC 16.6 H RBC 3.39 L Hgb 11.9 L Hct 32.3 L MCV 95.3 MCH 35.1 H MCHC 36.8 H RDW 12.9 Plt Count 317 MPV 11.3 H Immature Gran % (Auto) 0.5 Neut % (Auto) 75.7 H Lymph % (Auto) 17.3 L [place] % (Auto) 5.5 Eos % (Auto) 0.8 Baso % (Auto) 0.2 Lymph # (Auto) 2.86 [place] # (Auto) 0.9 H Eos # (Auto) 0.1 Baso # (Auto) 0.0 Abs Immat Gran (auto) 0.09 H Absolute Neuts (auto) 12.5 H Absolute Nucleated RBC 0.0 Nucleated RBC % 0.0 Urine Opiates Screen Negative Urine Methadone Screen Negative Ur Barbiturates Screen Negative Ur Phencyclidine Scrn Negative Ur Amphetamine Screen Negative U Benzodiazepines Scrn Negative Urine Cocaine Screen Negative U Cannabinoids Screen Positive A RPR Non-reactive Blood Type Antibody Screen 07/15/21 07/16/21 07:52 05:44 WBC RBC Hgb 11.8 L Hct 32.8 L MCV MCH MCHC RDW Plt Count MPV Immature Gran % (Auto) Neut % (Auto) Lymph % (Auto) [place] % (Auto) Eos % (Auto) Baso % (Auto) Lymph # (Auto) [place] # (Auto) Eos # (Auto) Baso # (Auto) Abs Immat Gran (auto) Absolute Neuts (auto) Absolute Nucleated RBC Nucleated RBC % Urine Opiates Screen Urine Methadone Screen Ur Barbiturates Screen Ur Phencyclidine Scrn Ur Amphetamine Screen U Benzodiazepines Scrn Urine Cocaine Screen U Cannabinoids Screen RPR Blood Type A Positive Antibody Screen Negative Imaging Radiologist's impression: Impressions Pelvis Ultrasound 07/15/21 16:36 IMPRESSION: Prominent echoes within the endometrial cavity consistent with retained products of conception 7 hours OB - PN A/P Plan day: 1 Plan: discharge home Comments: if labs wnl, pt to have follow up at [place] and in one week for bp check in office Time Spent With Patient Time: Total time spent is greater than 50% in coordination of care (as documented) at patient's floor/unit and/or counseling patient: Review of Systems Review of Systems: All systems reviewed & are unremarkable except as noted in HPI and below Constitutional: Constitutional: Reports as per HPI Exam Const: General: cooperative, healthy appearing and comfortable
[2021-07-16 09:11] LABS: Basophils Percent Auto 0.2 % (0.2-1.2); Eosinophils Percent Auto 0.1 % (0-4.4); Hematocrit 32.7 % (37.0-47.0); Hemoglobin 11.8 g/dL (12.0-15.0); Immature Granulocyte Absolute 0.08 K/mm3 (0.00-0.031); Immature Granulocyte Percent A 0.5 % (0-0.5); Lymphocytes Absolute Auto 2.81 K/mm3 (0.9-3.2); Lymphocytes Percent Auto 18.8 % (18.3-44.2); Mean Corpuscular HGB Conc 36.1 g/dl (32-36); Mean Corpuscular Hemoglobin 34.7 pg (26-34); Mean Corpuscular Volume 96.2 fl (80-100); Mean Platelet Volume 11.2 fl (7.4-10.4); Monocytes Absolute Auto 0.9 K/mm3 (0.1-0.6); Neutrophils Absolute Auto 11.2 K/mm3 (1.3-6.7); Neutrophils Percent Auto 74.4 % (45.5-73.1); Platelet Count Result 280 k/mm3 (150-375); Red Cell Distribution Width 13.2 % (11.5-14.5)
--- NOTE | 2021-07-16 09:18 | WPDANLDPN2 ---
Anes-Prog Note L&D Date/Time: 07/16/21 09:18 Comfortable throughout: labor and delivery Neuraxial method: epidural Epidural/Spinal procedure site: clean & non-tender Neuro status: Neuro function grossly intact. Vital Signs: Last Vital Signs Temp 36.9 C 07/15/21 22:20 Pulse 82 07/15/21 22:20 Resp 18 07/15/21 22:20 BP 134/93 H 07/15/21 22:20 Pulse Ox 98 07/15/21 22:20 O2 Del Method Room Air 07/15/21 06:43 Pain score (VAS): 1 I/O: Intake & Output 07/15/21 07/16/21 07/16/21 23:59 07:59 15:59 Intake Total 500 Balance 500 Patient feedback: Patient satisfied with anesthetic care.
[2021-07-16 09:23] LABS: Alanine Aminotransferase 8 U/L (6-35); Albumin Level 3.5 g/dL (3.5-5.1); Alkaline Phosphatase 70 U/L (38-126); Anion Gap 4 mmol/L (8-16); Aspartate Amino Transferase 15 U/L (14-36); Bilirubin,Total 0.5 mg/dL (0.2-1.3); Blood Urea Nitrogen 3 mg/dL (7-17); Calcium 8.5 mg/dL (8.4-10.2); Carbon Dioxide 21 mmol/L (22-30); Chloride 110 mmol/L (98-107); Estimated CRCL calculation 184 ml/min; Estimated Glomerular Filt Rate > 60; Glucose 80 mg/dL (65-110); Potassium 3.6 mmol/L (3.4-5.0); Sodium 135 mmol/L (137-145); Uric Acid 3.2 mg/dL (2.5-7.5)
[2021-07-16] MEDS: SERTRALINE HCL 50 MG TABLET PO (10:18)
[2021-07-16] MEDS: MULTIVIT/MIN/PREN/FOL AC/IRON TABLET 1 TAB PO (10:18)
[2021-07-16] MEDS: DOCUSATE SODIUM 100 MG CAPSULE PO (10:19)
[2021-07-18 08:16] VITALS: BP 131/76; PULSE 64; RESP 18; TEMP 36.7; O2SAT 100
--- NOTE | 2021-08-05 10:18 | PM.OBDSVD ---
DS: Admitting Diagnosis Discharge Date 07/16/21 Admitting Diagnosis labor DS: Discharge Diagnosis Discharge Diagnosis (1) labor: Code(s): O60.00 - labor without delivery, unspecified trimester Status: Acute (2) delivery: Code(s): O60.10X0 - labor with delivery, unspecified trimester, not applicable or unspecified Status: Acute Plan delivery OB - DS: Summary OB Procedures : None OB Procedures Intrapartum: Spontaneous Vag Delivery OB Procedures: : None Time Spent with Patient Time attestation: Total time spent providing and/or coordinating discharge services: Discharge Plan Discharge Attending physician on discharge: Drew Diaz Consulting providers: Bee Restrepo ; Chuck Valdes ; Silvano Benito ; Eric Whaley Discharging Clinician: Bee Restrepo Anticipated Discharge Date/Time: 07/16/21 09:59 Patient Disposition: Home, Self-Care Activity: as tolerated Diet: regular Discharge Instructions: Education: Mom and Baby Guide Given to: Mother Follow-Up: Call your delivering provider's office for an appointment to be seen in: 4 Weeks Mom and baby should come to the [facility] for the follow-up appointment. Appointment Date/Time: July 18, 2021 at 8:00 am What to expect at your follow-up visit: Physical Assessment Call [phone] if you are unable to keep your appointment time. BREAST CARE: * Wear a snug supportive bra. * For engorgement discomfort: Breast Feeding: * Apply warm moist washcloths * Express milk as needed to relieve engorgement * Wear loose clothing * For sore nipples: * Identify correct latch-on * Apply warm moist washcloths before and after nursing * Air dry nipples after nursing * May apply Lansinoh cream to nipples PERINEAL CARE: * Until bleeding stops, use your ayad bottle after urinating * Change your pad frequently throughout the day * You may take sitz baths several times a day (fill your bathtub with warm water and soak for 20 minutes.) Do NOT bathe in the water * No tub baths until seen by your physician - You may shower ACTIVITY: * Rest as much as possible. * Do not exercise or lift anything heavier than your baby (such as laundry or other children.) * Avoid stairs or driving as much as possible. * Do not put anything into the vagina. No douching, tampons, or sexual activity until seen by physician. NOTIFY PHYSICIAN IF YOU HAVE ANY QUESTIONS OR IF ANY OF THE FOLLOWING SYMPTOMS OCCUR: * If your perineum becomes red, swollen, or more painful than what you have experienced in the hospital. * If your vaginal bleeding becomes foul smelling. * If your vaginal bleeding becomes more heavy than a period or if your bleeding changes from pink to bright red. However, you may pass an occasional walnut-sized clot once or twice for the first week . * If you experience a sharp, shooting pain in you calves. * If you discover a hard, reddened area on your breast or if you experience flu-like symptoms. DIET: * Eat regular, well-balanced meals. * Drink plenty of fluids daily. If , drink to thirst. Patient Instructions: Antibiotic Form Stand Alone Forms: General Discharge Information Follow-up/Referrals: Drew Diaz MD [Physician] - 4 Weeks Discharge Medications: Continued trazodone 50 mg Tablet 50 mg PO HS sertraline [Zoloft] 50 mg Tablet 50 mg PO DAILY Discontinued aspirin [Adult Aspirin] 81 mg Tablet,Chewable 81 mg PO DAILY Date of admission: 07/15/21 06:01 Primary Care Provider: Sandi,Vahid Angeles Admitting Provider: Drew Diaz Attending physician on admission: Drew Diaz Condition: Stable
== END 2021-07-16 10:25 | disposition home or self-care (01) | DRG 560 ==
LOC: ANHLDR 10:29 → ANHOB2 12:33
PROVIDERS: Advanced Practice Midwife; Admitting Provider Obstetrics & Gynecology; PCP Internal Medicine; Visit Provider Obstetrics & Gynecology
DX: O60.14X0 Preterm labor third trimester with preterm delivery third trimester, not applicable or unspecified (principal); O36.5930 Maternal care for other known or suspected poor fetal growth, third trimester, not applicable or unspecified; O99.334 Smoking (tobacco) complicating childbirth; F17.210 Nicotine dependence, cigarettes, uncomplicated; O43.113 Circumvallate placenta, third trimester; Z3A.31 31 weeks gestation of pregnancy; Z37.0 Single live birth; O26.893 Other specified pregnancy related conditions, third trimester; O99.344 Other mental disorders complicating childbirth; F31.9 Bipolar disorder, unspecified
CPT/HCPCS: 36415; 76856; 80053; 80307; 81001; 84550; 85014; 85018; 85025; 86592; 86850; 86900; 86901; A9270; J0290; J0702; J2590; J2795; J3010; J3475; J7120

== ENCOUNTER 2022-12-14 00:08 | Day surgery (SDC) | payer OTHER, SELFPAY ==
[2022-12-10 11:46] VITALS: BMI 32.5
--- NOTE | 2022-12-10 11:52 | PC.NURSE ---
Report to the Outpatient Waiting Room, entrance under the green pavilion located off [facility], at time 0700 on date 12/14/22. Planned Procedure Time: 0900. Time changes happen often and if your time is changed the preop area will call you the afternoon before. - You and your visitor will be asked to self-screen and do not enter if you have any COVID symptoms. - A mask is optional within the hospital at this time. Patients may have clear liquids (water, carbonated beverages, clear teas, apple juice) until 3 hours prior to surgery with a maximum of 20 ounces. - No food from midnight until time of surgery Take the following medications with a SIP of water the morning of surgery: N/A DO NOT STOP ANY OF YOUR OTHER PRESCRIPTION MEDICATIONS PRIOR TO SURGERY ?EXCEPT THE FOLLOWING Medications to discontinue per physician: N/A Date to take last dose: N/A Please no make-up, nail portuguese, hairspray, perfume, deodorant, or body powder the day of surgery. No jewelry (including any body piercings) or valuables the day of surgery, leave them at home. Please take a shower or bath the night before, or the morning of, surgery with an antibacterial soap. Wear comfortable, loose fitting clothing. - Jewelry must be removed prior to entering the operating room. Rings and piercings that are not removed may be cut off. - The hospital will not accept responsibility for valuables. - Please leave all valuables, including medications, at home the day of surgery. If you are going home after surgery, a licensed light truck driver must drive you home. - NO public transportation without another adult if you receive anesthesia. - We recommend that an adult stay with you for 24 hours following discharge. - We also recommend that you do not drive, make important decision, drink alcoholic beverages, or take any drugs that were not prescribed by your health care provider for at least 24 hours after your discharge time. Follow any additional instructions given to you from your surgeon. If you or anyone in your household have experienced Covid symptoms in the past week, please notify your surgeon or the nurse liaison at the phone number below for possible testing. Telephone instructions given to PT - SAURABH LARIOS and asked if any additional questions and then verbalized understanding. Patient advised to call surgeon office or pre surgery nurse liaison [phone] if any additional questions.
[2022-12-14 08:02] VITALS: BP 148/99; PULSE 76; RESP 16; TEMP 36.5; O2SAT 98
[2022-12-14] MEDS: LACTATED RINGERS 1,000 ML 30 ML IV CONT (08:05)
[2022-12-14] MEDS: ACETAMINOPHEN 500 MG TABLET 1000 MG PO (08:05)
--- NOTE | 2022-12-14 08:53 | WPDHPUPDATE1 ---
History and Physical Update Update Date/Time: 12/14/22 08:53 History and Physical has been reviewed, including an updated exam of the patient. There are NO changes in the patient's condition. Risks, benefits, and alternatives have been discussed and questions answered. Patient agrees to proceed with procedure.
--- NOTE | 2022-12-14 08:54 | WPDANESEPPF ---
Anes - Initial Pre Proc Eval Procedure: Operation Date: 12/14/22 09:00 Proposed Procedures p Hysteroscopy with Removal of Foreign Body - Drew Diaz MD Date/Time: 12/14/22 08:54 Surgeon: Drew Diaz MD Pre Op Diagnosis: Mechanical Complication Intrauterine (cont) Patient Data Age: 32 Gender: F Height: 1.63 m Weight: 86.9 kg Last Vital Signs Temp 97.7 F 12/14/22 08:02 Pulse 76 12/14/22 08:02 Resp 16 12/14/22 08:02 BP 148/99 H 12/14/22 08:02 Pulse Ox 98 12/14/22 08:02 O2 Del Method Room Air 12/14/22 08:02 Allergies Allergy/AdvReac Type Severity Reaction Status Date / Time methylphenidate Allergy Unknown Hives Verified 12/14/22 08:00 metoclopramide [From Reglan] AdvReac Agitated Verified 12/14/22 08:00 Home Medications Medication Instructions Recorded Confirmed Type No Home Medications 12/10/22 12/14/22 History Patient hx anesthesia problems: none Family hx anesthesia problems: none Results Review: All pre-operative results and documents have been reviewed as part of the pre-operative evaluation. [facility] Past Medical History Medical History ADHD Bipolar disorder Chronic bronchitis PCOS (polycystic ovarian syndrome) PIH ( induced hypertension) Surgical History Surgical History History of back surgery Family History Family History Mother Hypertension Sibling Hypertension Father Hypertension Social History Social History Smoking packs per day: 1 Smoking cigarettes per day: 20.0 Years smoked: 13 Smoking pack-years: 13.00 Smoking status: Current every day smoker Tobacco type: cigarettes Second hand tobacco smoke exposure: Yes Additional smoking assessment comments: Cut down to 1/2 PPD during Alcohol intake: current Alcohol use details: 1 PINT VODKA 4 DAYS A WEEK Substance use: current Substance use type: marijuana Other substance usage details: pt stated stopped herion 7 years ago, currently smokes marijuana daily Last use: 07/15/21 Living arrangements: with family Gender identity (if verbalized by the patient): Female Spiritual care concerns: No Anes - Eval Final PreProcedure Day of Procedure 12/14/22 08:54 Patient weight: obese Heart: regular rate and rhythm Lungs: clear to auscultation Airway: Mallampati scale (poor dentition) class II Neurological: alert and oriented Last oral intake: >/= 8 hours ASA classification: III Emergent: no Anesthetic plan: proceed Anesthesia type and monitoring: general LMA and ETT and standard monitoring Results Review: All pre-operative results and documents have been reviewed as part of the pre-operative evaluation. Informed Consent: The patient's anesthetic plan and its attendant risks and benefits were discussed with the patient/family/POA. Questions were solicited and answers provided to the satisfaction of the patient/family/POA.
--- NOTE | 2022-12-14 08:56 | PM.IMHP ---
H&P: HPI History of Present Illness Date/Time: 12/14/22 08:56 Chief Complaint: Complication of IUD Narrative: 32-year-old female who presents with complication of IUD. She is imbedded IUD. There was a failed attempt to remove in the office. This firmly imbedded. We have agreed to perform IUD removal in the operating room. She understands there is risk. She understands that injuries may occur that resulted in hospitalization, more surgery, and severe illness. She understands there is risk of hemorrhage infection. She denies any nausea, vomiting, fever, chills. She denies any chest pain or shortness of breath. Review of Systems Review of Systems: All systems reviewed & are unremarkable except as noted in HPI and below Constitutional: Constitutional: Denies chills, Denies fatigue, Denies fever(s) and Denies weakness Eyes: Eyes: Denies blurry vision, Denies change in vision, Denies loss of peripheral vision, Denies loss of vision, Denies other visual disturbances and Denies eye pain ENT: Denies vertigo, Denies dizziness, Denies hearing loss, Denies mouth pain, Denies nasal obstruction, Denies neck mass and Denies neck pain Cardiovascular: Cardiovascular: Denies chest pain, Denies diaphoresis, Denies syncope, Denies leg edema and Denies dyspnea Respiratory: Respiratory: Denies chest congestion, Denies cough, Denies hemoptysis, Denies dyspnea and Denies wheezing Gastrointestinal: Gastrointestinal: Denies abdominal pain, Denies constipation, Denies diarrhea, Denies nausea and Denies vomiting Genitourinary: Genitourinary: Denies hematuria, Denies change in libido, Denies nocturia, Denies genital lesions, Denies flank pain and Denies urinary urgency Musculoskeletal: Musculoskeletal: Denies abnormal gait, Denies back pain, Denies myalgias, Denies arthralgias, Denies joint swelling, Denies muscle weakness and Denies neck pain Integumentary/Breasts: Skin/Breast: Denies swelling, Denies breast pain, Denies breast mass, Denies dry skin, Denies nipple discharge, Denies unusual bruising and Denies jaundice Neurologic: Denies Neuro-related abnormal movements, Denies Abnormal speech present, Denies abnormal gait, Denies behavioral changes, Denies confusion, Denies vertigo, Denies dizziness, Denies syncope, Denies loss of vision, Denies memory loss, Denies convulsions and Denies weakness Psychiatric: Psychiatric: Denies abnormal sleep pattern, Denies behavioral changes, Denies change in libido, Denies confusion, Denies depression, Denies anhedonia and Denies memory loss Endocrine: Endocrine: Reports no additional endocrine complaints, Denies change in libido and Denies fatigue Hematologic/Lymphatic: Hematologic/Lymphatic: Reports no additional hematologic/lymphatic complaints Allergic/Immunologic: Allergic/Immunologic: Reports no additional allergic/immunologic complaints and Denies wheezing PMFSH Past Medical History Medical History ADHD Bipolar disorder Chronic bronchitis PCOS (polycystic ovarian syndrome) PIH ( induced hypertension) Surgical History Surgical History History of back surgery Family History Family History Mother Hypertension Sibling Hypertension Father Hypertension Social History Social History Smoking packs per day: 1 Smoking cigarettes per day: 20.0 Years smoked: 13 Smoking pack-years: 13.00 Smoking status: Current every day smoker Tobacco type: cigarettes Second hand tobacco smoke exposure: Yes Additional smoking assessment comments: Cut down to 1/2 PPD during Alcohol intake: current Alcohol use details: 1 PINT VODKA 4 DAYS A WEEK Substance use: current Substance use type: marijuana Other substance usage details: pt stated stopped herion 7 years ago, cu
[2022-12-14 09:27] VITALS: BP 141/92; PULSE 70; RESP 16; O2SAT 99
--- NOTE | 2022-12-14 09:31 | W.PM.PROC2 ---
Procedure Note - Detailed Date of Procedure 12/14/22 Pre-op Diagnosis Mechanical Complication Intrauterine (cont) Post-op Diagnosis Same Procedure Performed Hysteroscopic IUD removal Surgeon Drew Diaz MD Anesthesia MAC Indications Malposition of the IUD Findings Malpositioned IUD with the arm pushing into the side of the cervix irregular. Normal vulva, vagina, cervix. Normal intrauterine cavity, no damage Description of Procedure the patient was taken the operating room. She was prepped and draped in the dorsal lithotomy position after induction of mac anesthesia. A speculum was placed in the vagina. The cervix was grasped with a tenaculum. The cervix was dilated about 1 cm. The hysteroscope was inserted. The intrauterine cavity and endocervix were evaluated. IUD was pushed into a normal orientation with the scope. hysteroscope was withdrawn. IUD was removed with packing forceps. Patient tolerated the procedure well. The speculum and tenaculum were removed. She was taken recovery room in stable condition. Sponge lap and needle counts were correct x2. Estimated Blood Loss 40 Drains No Packing No Pathology Yes Complications No immediate complications Condition Stable Disposition PACU
[2022-12-14 09:55] VITALS: BP 129/80; PULSE 74; RESP 18; O2SAT 100
[2022-12-14] MEDS: oxyCODONE HCL (*CRX) 5 MG TAB IR PO (10:06)
[2022-12-14 10:10] VITALS: BP 146/93; PULSE 71; RESP 18
== END 2022-12-14 10:19 | disposition home or self-care (01) ==
PROVIDERS: PCP Internal Medicine; Visit Provider Obstetrics & Gynecology
PROC: 0U5B8ZZ Destruction of Endometrium, Via Natural or Artificial Opening Endoscopic (ICD-10-PCS; CPT 58563; principal; 2022-12-14 09:00)
DX: T83.32XA Displacement of intrauterine contraceptive device, initial encounter (principal); F90.9 Attention-deficit hyperactivity disorder, unspecified type; F31.9 Bipolar disorder, unspecified; E28.2 Polycystic ovarian syndrome; F17.210 Nicotine dependence, cigarettes, uncomplicated; E66.9 Obesity, unspecified; Z68.32 Body mass index [BMI] 32.0-32.9, adult; Y84.8 Other medical procedures as the cause of abnormal reaction of the patient, or of later complication, without mention of misadventure at the time of the procedure
CPT/HCPCS: 58562; A9270; J1100; J2250; J2405; J2704; J3010; J7120

== ENCOUNTER 2023-10-01 16:59 | Observation (INO) | payer MEDICAID, SELFPAY ==
--- NOTE | 2023-10-01 17:32 | OBADM ---
This patient, Samantha Beach, admitted to the OB room Labor/Delivery/Recovery 108 for observation. Patient/family oriented to hospital policies and general routines including ID bracelet, bed and alarms, visiting hours, pain management, procedures, bathroom and other care routines, personal items, smoking policy, room service/diet, and visiting hours. Patient/Family are encouraged to report perceived risks to care and to ask questions if they do not understand what they are told or what they should do.
[2023-10-01 17:45] VITALS: BP 121/69; PULSE 111
[2023-10-01 18:00] VITALS: BP 126/83; PULSE 111
[2023-10-01 18:08] VITALS: PULSE 103; O2SAT 99
[2023-10-01 18:14] VITALS: PULSE 94; O2SAT 99
[2023-10-01 18:16] VITALS: BP 91/36; PULSE 122
[2023-10-01 18:19] VITALS: PULSE 119; O2SAT 99
--- NOTE | 2023-10-27 19:59 | PM.OBTRLD ---
OB - Triage/Final Diagnosis Visit Information Comments/Additional reasons for admission: I have assessed the risk for this patient, Samantha Beach, and determined that she would benefit from observation care. Final Diagnosis (1) False labor: Code(s): O47.9 - False labor, unspecified Status: Acute
== END 2023-10-01 18:43 | disposition home or self-care (01) ==
PROVIDERS: Admitting Provider Obstetrics & Gynecology; Visit Provider Obstetrics & Gynecology
DX: O47.9 False labor, unspecified (principal)
CPT/HCPCS: G0378; G0379

== ENCOUNTER 2023-10-06 21:19 | Outpatient (RCR) | payer MEDICAID, SELFPAY ==
--- NOTE | 2023-10-06 22:02 | PC.NURSE ---
Called Dereck Restrepo CNM, update on pt, walk-in, limited care, tracing, cervical exam, and blood pressure. Orders received to discharge pt with instructions to call the office tomorrow and make an appointment.
[2023-10-06 22:09] VITALS: BP 128/77; PULSE 99
--- NOTE | 2023-10-06 22:25 | PC.NURSE ---
Pt discharged with instructions to call the office tomorrow and make an appointment and when to return to the unit, pt verbalizes understanding.
== END 2024-01-04 23:59 | disposition home or self-care (01) ==
LOC: ANHOBOP 21:19
PROVIDERS: Visit Provider Advanced Practice Midwife
DX: O09.33 Supervision of pregnancy with insufficient antenatal care, third trimester (principal); Z3A.39 39 weeks gestation of pregnancy
CPT/HCPCS: 59025

== ENCOUNTER 2023-10-21 05:03 | Inpatient (IN) | payer MEDICAID, SELFPAY ==
[2023-10-21] VITALS (103 sets, daily range): BP systolic 95–176; BP diastolic 37–129; PULSE 29–163; RESP 14–16; TEMP 36.4–37.2; O2SAT 83–100; BMI 35.7
--- NOTE | 2023-10-21 05:16 | LDADM ---
This patient, Samantha Beach, was admitted to Labor/Delivery/Recovery 108 on 10/21/23 at 05:03. Plans for labor, pain management and were discussed with patient. Patient/family oriented to hospital policies and general routines including ID bracelet, bed and alarms, visiting hours, pain management, procedures, bathroom and other care routines, personal items, smoking policy, room service/diet and guest tray routines, security routines, and visiting hours. Patient/Family are encouraged to report perceived risks to care and to ask questions if they do not understand what they are told or what they should do. See OBIX for further documentation.
[2023-10-21 05:46] LABS: Basophils Percent Auto 0.2 % (0.2-1.2); Eosinophils Percent Auto 0.1 % (0-4.4); Hematocrit 39.1 % (37.0-47.0); Hemoglobin 14.2 g/dL (12.0-15.0); Immature Granulocyte Absolute 0.05 K/mm3 (0.00-0.031); Immature Granulocyte Percent A 0.5 % (0-0.5); Lymphocytes Absolute Auto 2.56 K/mm3 (0.9-3.2); Lymphocytes Percent Auto 25.2 % (18.3-44.2); Mean Corpuscular HGB Conc 36.3 g/dl (32-36); Mean Corpuscular Hemoglobin 33.7 pg (26-34); Mean Corpuscular Volume 92.9 fl (80-100); Mean Platelet Volume 11.4 fl (7.4-10.4); Monocytes Absolute Auto 0.7 K/mm3 (0.1-0.6); Monocytes Percent Auto 6.4 % (2.6-8.5); Neutrophils Absolute Auto 6.9 K/mm3 (1.3-6.7); Neutrophils Percent Auto 67.6 % (45.5-73.1); Platelet Count Result 250 k/mm3 (150-375); Red Blood Count 4.21 M/mm3 (4.2-5.4); Red Cell Distribution Width 13.7 % (11.5-14.5); White Blood Count 10.2 K/mm3 (4.5-10.0)
[2023-10-21] MEDS: AMPICILLIN 2 GM/NS 100 ML 2 GM/100 ML BAG IVPB (05:47)
[2023-10-21] MEDS: LACTATED RINGERS 1,000 ML 125 ML IV CONT ×2 (05:47→08:44)
[2023-10-21] MEDS: OXYTOCIN 30 UNITS/NS 500 ML 30 UNITS/500 ML BAG IV CONT ×2 (05:48→06:23)
[2023-10-21 06:34] LABS: HIV 1/2 Ab P24 Ag Result Negative (Negative)
[2023-10-21 07:33] LABS: Rapid Plasma Reagin Non-Reactive (NonReactive)
--- NOTE | 2023-10-21 07:59 | WPDHPUPDATE1 ---
History and Physical Update Update Date/Time: 10/21/23 07:59 33-year-old multiparous female at term. Induction of labor. 3 cm, soft, -2. Reassuring status. Pitocin started. Artificial rupture membranes-clear fluid. Expected management. History and Physical has been reviewed, including an updated exam of the patient. There are NO changes in the patient's condition. Risks, benefits, and alternatives have been discussed and questions answered. Patient agrees to proceed with procedure.
[2023-10-21] MEDS: fentaNYL CITRATE INJ (*CRX) 100 MCG/2 ML VIAL IV PUSH (08:20)
--- NOTE | 2023-10-21 08:53 | PC.NURSE ---
This RN called and spoke with Dr. Diaz regarding severe BP's leading up to and during the epidural procedure. MD verbalized understanding, would like HTN labs drawn. RN repeated orders back to confirm.
[2023-10-21 09:22] LABS: Alanine Aminotransferase 10 U/L (6-35); Albumin Level 3.9 g/dL (3.5-5.1); Alkaline Phosphatase 106 U/L (38-126); Anion Gap 9 mmol/L (4-12); Aspartate Amino Transferase 20 U/L (14-36); Bilirubin,Total 0.7 mg/dL (0.2-1.3); Blood Urea Nitrogen 8 mg/dL (7-17); Calcium 9.2 mg/dL (8.4-10.2); Carbon Dioxide 23 mmol/L (22-30); Chloride 102 mmol/L (98-107); Estimated CRCL calculation 129 ml/min; Estimated Glomerular Filt Rate > 60; Glucose 107 mg/dL (65-110); Potassium 4.1 mmol/L (3.4-5.0); Sodium 134 mmol/L (137-145); Uric Acid 4.7 mg/dL (2.5-7.5)
[2023-10-21] MEDS: AMPICILLIN 1 GM/NS 50 ML 1 GM/50 ML BAG IVPB (10:00)
--- NOTE | 2023-10-21 10:11 | WPDANESEPPF ---
Anes - Initial Pre Proc Eval Date/Time: 10/21/23 10:11 Surgeon: Nikolai Diaz MD Pre Op Diagnosis: IOL Patient Data Age: 33 Gender: F Height: 1.63 m Weight: 94.45 kg Last Vital Signs Temp 36.6 C 10/21/23 09:44 Pulse 96 10/21/23 10:01 BP 115/59 L 10/21/23 10:01 Pulse Ox 99 10/21/23 10:06 O2 Del Method Room Air 10/21/23 05:15 Allergies Allergy/AdvReac Type Severity Reaction Status Date / Time methylphenidate Allergy Unknown Hives Verified 10/21/23 05:32 metoclopramide [From Reglan] AdvReac Agitated Verified 10/21/23 05:32 Home Medications Medication Instructions Recorded Confirmed Type hydrocodone 5 mg-acetaminophen 325 5 tablet PO PRN 10/21/23 10/21/23 History mg tablet prednisone 10 mg tablet 10 mg PO DAILY 10/21/23 10/21/23 History Laboratory Tests 10/21/23 10/21/23 05:13 08:59 WBC 10.2 H K/mm3 (4.5-10.0) RBC 4.21 M/mm3 (4.2-5.4) Hgb 14.2 g/dL (12.0-15.0) Hct 39.1 % (37.0-47.0) MCV 92.9 fl (80-100) MCH 33.7 pg (26-34) MCHC 36.3 H g/dl (32-36) RDW 13.7 % (11.5-14.5) Plt Count 250 k/mm3 (150-375) MPV 11.4 H fl (7.4-10.4) Immature Gran % (Auto) 0.5 % (0-0.5) Neut % (Auto) 67.6 % (45.5-73.1) Lymph % (Auto) 25.2 % (18.3-44.2) Laurens % (Auto) 6.4 % (2.6-8.5) Eos % (Auto) 0.1 % (0-4.4) Baso % (Auto) 0.2 % (0.2-1.2) Lymph # (Auto) 2.56 K/mm3 (0.9-3.2) Laurens # (Auto) 0.7 H K/mm3 (0.1-0.6) Eos # (Auto) 0.0 K/mm3 (0-0.3) Baso # (Auto) 0.0 K/mm3 (0.0-0.1) Abs Immat Gran (auto) 0.05 H K/mm3 (0.00-0.031) Absolute Neuts (auto) 6.9 H K/mm3 (1.3-6.7) Absolute Nucleated RBC 0.000 K/mm3 (0.0-0.012) Nucleated RBC % 0.0 % (0.0-0.2) Sodium 134 L mmol/L (137-145) Potassium 4.1 mmol/L (3.4-5.0) Chloride 102 mmol/L (98-107) Carbon Dioxide 23 mmol/L (22-30) Anion Gap 9 mmol/L (4-12) BUN 8 D mg/dL (7-17) Creatinine 0.60 L mg/dL (0.7-1.0) Estim Creat Clear Calc 129 ml/min Estimated GFR > 60 (59 - ) Glucose 107 mg/dL (65-110) Uric Acid 4.7 mg/dL (2.5-7.5) Calcium 9.2 mg/dL (8.4-10.2) Total Bilirubin 0.7 mg/dL (0.2-1.3) AST 20 U/L (14-36) ALT 10 U/L (6-35) Alkaline Phosphatase 106 U/L (38-126) Total Protein 7.0 g/dL (6.3-8.2) Albumin 3.9 g/dL (3.5-5.1) RPR Non-reactive (NonReactive) HIV 1&2 Ab/P24 Ag 4thGn Negative (Negative) Blood Type A Positive Antibody Screen Negative Patient hx anesthesia problems: none Family hx anesthesia problems: none Results Review: All pre-operative results and documents have been reviewed as part of the pre-operative evaluation. [facility] Past Medical History Medical History ADHD Bipolar disorder Chronic bronchitis PCOS (polycystic ovarian syndrome) PIH ( induced hypertension) Surgical History Surgical History History of back surgery Family History Family History Mother Hypertension Sibling Hypertension Father Hypertension Social History Social History Smoking packs per day: 1 Smoking cigarettes per day: 20.0 Years smoked: 13 Smoking pack-years: 13.00 Smoking status: Current every day smoker Tobacco type: cigarettes Second hand tobacco smoke exposure: Yes Additional smoking assessment comments: Cut down to 1/2 PPD during Alcohol intake: current Alcohol use details: 1 PINT VODKA 4 DAYS A WEEK Substance use: current Substance use type: marijuana Other substance usage det
--- NOTE | 2023-10-21 12:35 | PM.OBPRVD ---
OB - Vaginal Delivery Note Procedure Delivery date: 10/21/23 Induction method: AROM and Per Pitocin Protocol Delivery monitor: External FHT and Internal Uterine Route of delivery: Episiotomy description: None Laceration Description: None Quantitative Blood Loss (ml): 175 Anesthesia type: Epidural Disposition: Floor [place] Baby Date of : 10/21/23 Time of : 12:23 Gestational Age by Date: 40 score one minute: 8 score five minutes: 9
[2023-10-21] MEDS: OXYTOCIN 30 UNITS/NS 500 ML 30 UNITS/500 ML BAG 125 UNITS IV CONT (13:07)
[2023-10-21] MEDS: OXYTOCIN 30 UNITS/NS 500 ML 30 UNITS/500 ML BAG 999 UNITS IV CONT (13:07)
[2023-10-21] MEDS: BENZOCAINE 20% AER SPR (*SP) 56 GM CAN 1 SPRAY TOPICAL (14:39)
[2023-10-21] MEDS: WITCH HAZEL 40 PADS 1 PAD TOPICAL (14:39)
[2023-10-21] MEDS: LANOLIN (LANSINOH) 7.5 GM CREAM 1 APPLIC TOPICAL (14:40)
--- NOTE | 2023-10-21 15:00 | OBPPTRN ---
Patient transferred to post room #282 via wheelchair. Support person present. Oriented to unit, room, information board, rooming in, admission packet and security measures. Patient verbalizes understanding.
[2023-10-21] MEDS: oxyCODONE/ACETAMINOPHEN (*CRX) 10-325 MG TABLET 1 TAB PO (16:47)
--- NOTE | 2023-10-21 17:00 | PC.NURSE ---
This patient refused to finish second bag of IV Pitocin and wants her IV out in order to be able to go outside to smoke. Dr. Diaz notified of this. Patient advised against this and warned her about post hemorrhage and falling. 171ml of 500ml left in the bag of IV Pitocin when it was discontinued. Patient requested wheelchair and to send to nursery while she goes outside. Informed patient that the staff is not able to wheelchair her out and should have her support person go with her and that she needs to stay within security's view right [facility].
[2023-10-22] MEDS: oxyCODONE/ACETAMINOPHEN (*CRX) 10-325 MG TABLET 1 TAB PO ×2 (03:59→09:55)
[2023-10-22 04:41] LABS: Hematocrit 35.3 % (37.0-47.0); Hemoglobin 12.9 g/dL (12.0-15.0)
[2023-10-22 07:05] VITALS: BP 154/98; PULSE 65; RESP 16; TEMP 36.3; O2SAT 100
--- NOTE | 2023-10-22 07:57 | PM.OBPNVD ---
OB - PN: Subj Subjective Date/time seen: 10/22/23 07:57 Interval history: pp day 1 elevated bp, denies headache, visual changes, epigastric pain start labetalol 200mg bid baby doing well OB - PN: Obj Data Labs 10/22/23 04:13 10/21/23 08:59 Labs: Laboratory Results - last 24 hr 10/21/23 10/22/23 08:59 04:13 Hgb 12.9 Hct 35.3 L Sodium 134 L Potassium 4.1 Chloride 102 Carbon Dioxide 23 Anion Gap 9 BUN 8 D Creatinine 0.60 L Estim Creat Clear Calc 129 Estimated GFR > 60 Glucose 107 Uric Acid 4.7 Calcium 9.2 Total Bilirubin 0.7 AST 20 ALT 10 Alkaline Phosphatase 106 Total Protein 7.0 Albumin 3.9 OB - PN A/P Plan day: 1 Plan: routine care Time Spent With Patient Time: Total time spent is greater than 50% in coordination of care (as documented) at patient's floor/unit and/or counseling patient: Review of Systems Review of Systems: All systems reviewed & are unremarkable except as noted in HPI and below Exam Const: General: cooperative and healthy appearing Chest: Chest palpation & inspection: normal inspection of the chest Resp: Effort & Inspection: normal respiratory effort
[2023-10-22 09:18] VITALS: PULSE 75
[2023-10-22] MEDS: LABETALOL HCL 100 MG TABLET 200 MG PO (09:18)
[2023-10-22] MEDS: MULTIVIT/MIN/PREN/FOL AC/IRON TABLET 1 TAB PO (09:18)
[2023-10-22 12:02] VITALS: BP 148/85; PULSE 76; RESP 16; TEMP 36.1; O2SAT 99
--- NOTE | 2023-10-22 14:57 | PCCCNOTE ---
Addendum entered by PATSY Cai 10/22/23 15:37: Mother reported no prior DCFS cases. Original Note: accreditation coordinator was consult - poor care, no insurance, questionable self harm during . accreditation coordinator met with mother at bedside who was holding sherin Beach (Miles) in her arms. Mother reported she normally lives at [address] [place] [address] with her boyfriend Saad Bang and her three other children (Lexi - girl 4, Vadim - boy 3, Adalynn - girl 2). Per mother she has been residing with her own mother Karlene Beach at [address] [place] [address] for the last month. Mother reported they have recently moved to [place], but hope [facility]. Mother confirmed she has all the necessary baby supplies (car seat, crib, diapers, etc.). Patient confirmed she does smoke cigarettes and THC. Per MARV Toussaint, mother has a past of drinking 1 pint of vodka 4 times a week and had quit heroin 7 years ago. Per mother she used to be a alcoholic, but stopped drinking the moment she found out she was with sherin Beach. Mother reported no other substance use besides THC which is legal. Mother appears to be doing well over all in the room -mentally and physically she reports she is in a better place than she was about 10 weeks ago. Mother reported that at about 30 or 31 weeks she became very depressed and cut herself to deal with the pain. Mother does not have any current thoughts of hurting herself or anyone else. Mother reported she used to have a psychiatrist, but no longer does. Mother stated she plans to stay in [place], [place] for a couple more weeks then return to [place], [place] to be with her and other children, but they plan to move back to [place] soon. Per mother she does have an established relationship with Dr. Diaz's office and plans to have Dr. Ann-Marie Baltazar from [facility] be baby boy's gravity prospecting operator while in [place] and her cousin has another gravity prospecting operator in [place] they baby will see in the interim. RN reported patient does have a diagnosis of PCOS and Bipolar. MARV Toussaint reported one staff member say some possible nicotine jitters from baby, but while in room resident care provider did not see any withdrawal symptoms. Pt. weighs 7lbs and 1 oz. Mother reported that sometimes she does have issues with the baby's father, but reports they never fight in front of the children. 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 Mother stated she does not have insurance at this time. Notified Vy with [facility] who confirmed she is working on completing a Medicaid application with mother today. Spoke with Bee Restrepo independent sales representative with Dr. Diaz's office who reported they are established with patient from previous pregnancies and they had no concerns before until recently when she brought up self harm during those care coordination consult was put in. Spoke with MARV Toussaint who is aware of the above information and also feels mother is doing well with baby at this time. MARV Toussaint reported Dr. Diaz's office to see patient and also discuss possible medication if needed for anxiety/depression. MARV Toussaint reported, grandmother Karlene has not been at bedside at this time. Patient was given resources for , Counseling in [place] as well as for [facility] in [place], [place] ([phone]), and Substance Abuse Resources. Mother did not voice any discharge need or concerns at this time. RN aware to pass on for any nursing to call wound care coordinator Vidhya in case they are any concerns over the weekend case mother is discharged as she is aware of the case. *RN did report no urine drug screen was done on mother, but the peditrician did request for cord to be sent of for drug screen. accreditation coordinator will follow for results of cord drug screen if test comes back positive will notify DCFS.
--- NOTE | 2023-10-22 16:44 | PC.NURSE ---
[id number] Patient went out by herself in a wheelchair to smoke, RN offered to assist her but she declined. Baby went to the nursery. [id number] Patient went out by herself in a wheelchair to smoke, RN offered to assist her but she declined. Baby went to the nursery.
[2023-10-22] MEDS: ACETAMINOPHEN 325 MG TABLET 650 MG PO (18:33)
[2023-10-22] MEDS: IBUPROFEN 600 MG TABLET PO (18:34)
[2023-10-22 20:06] VITALS: BP 148/91; PULSE 109; RESP 16; TEMP 36.8; O2SAT 100
--- NOTE | 2023-10-23 00:24 | PC.NURSE ---
2000- pt requesting to go outside to smoke, charge nurses Vidhya in LD aware.
[2023-10-23] MEDS: IBUPROFEN 600 MG TABLET PO ×3 (00:44→16:48)
[2023-10-23] MEDS: ACETAMINOPHEN 325 MG TABLET 650 MG PO ×2 (00:44→16:47)
[2023-10-23 00:45] VITALS: PULSE 71
[2023-10-23] MEDS: LABETALOL HCL 100 MG TABLET 200 MG PO ×3 (00:45→21:30)
[2023-10-23] MEDS: MULTIVIT/MIN/PREN/FOL AC/IRON TABLET 1 TAB PO (07:33)
[2023-10-23] MEDS: oxyCODONE/ACETAMINOPHEN (*CRX) 10-325 MG TABLET 1 TAB PO (07:35)
--- NOTE | 2023-10-23 08:05 | PC.NURSE ---
[id number] Patient went out by herself in a wheelchair to smoke, RN offered to assist her but she declined. Baby went to the nursery.
--- NOTE | 2023-10-23 08:06 | PM.OBPNVD ---
OB - PN: Subj Subjective Date/time seen: 10/23/23 08:06 Interval history: pp day 1 elevated bp, denies headache, visual changes, epigastric pain start labetalol 200mg bid baby doing well Patient comments: no complaints, pain well controlled and tolerating diet OB - PN: Obj Data Labs 10/22/23 04:13 10/21/23 08:59 OB - PN A/P Plan day: 2 Plan: routine care and discharge home Time Spent With Patient Time: Total time spent is greater than 50% in coordination of care (as documented) at patient's floor/unit and/or counseling patient: Exam Const: General: comfortable and no acute distress Resp: Effort & Inspection: normal respiratory effort Auscultation: no rales, no rhonchi and no wheezes Cardio: Rate: regular rate Heart sounds: no click, no murmurs and no rubs GI: GI Palp: Yes Soft to palpation and No Tenderness to palpation present (GI) Auscultation: normal bowel sounds Extrem: General: normal to inspection, no pedal edema and no calf tenderness
[2023-10-23 09:10] VITALS: BP 146/78; PULSE 66; RESP 16; TEMP 36.9; O2SAT 99
--- NOTE | 2023-10-23 10:22 | WPDANLDPN2 ---
Anes-Prog Note L&D Date/Time: 10/23/23 10:22 Comfortable throughout: labor and delivery Neuraxial method: epidural Epidural/Spinal procedure site: clean & non-tender Neuro status: Neuro function grossly intact. Cardiovascular status: normal Respiratory status: normal Airway patency: baseline Mental status: baseline Vital Signs: Last Vital Signs Temp 98.5 F 10/23/23 09:10 Pulse 66 10/23/23 09:10 Resp 16 10/23/23 09:10 BP 146/78 H 10/23/23 09:10 Pulse Ox 99 10/23/23 09:10 O2 Del Method Room Air 10/21/23 15:15 Pain score (VAS): 1 I/O: Intake & Output 10/22/23 10/23/23 10/23/23 23:59 07:59 15:59 Intake Total 200 Balance 200 Post-procedural complaints: none Patient feedback: Patient satisfied with anesthetic care.
[2023-10-23 11:47] VITALS: BP 140/86; PULSE 75
[2023-10-23 11:48] VITALS: PULSE 75
--- NOTE | 2023-10-23 13:29 | PC.NURSE ---
[id number] Mother went outside and was able to ambulate and not use the wheel chair, then returned to her room.
--- NOTE | 2023-10-23 19:20 | PC.NURSE ---
1900- pt out to smoke at this time.
[2023-10-23 21:38] VITALS: BP 136/80; PULSE 83; RESP 18; TEMP 37
--- NOTE | 2023-10-24 11:10 | PC.NURSE ---
Late Entry: Discharge paperwork printed and signed by this RN @ 2148 on 10/23/23. Patient was given discharge packet to review but was not officially discharged until 0023 by Drew Mtz RN, she was the nurse who went over the discharge paperwork and had the patient sign the signature page.
--- NOTE | 2023-10-25 08:15 | PC.NURSE ---
Mother states that she is no longer pumping because my body doesn't like it . Mother is putting to breast for some feedings and supplementing with formula for some feedings. Mother will continue to feed infant breast and bottle once discharged. Mother denies pain with latched, no feeding was observed by this RN.
[2023-10-25 10:25] VITALS: BP 150/100; PULSE 92; RESP 18; TEMP 36.8; O2SAT 100
--- NOTE | 2023-10-25 14:21 | PCCCNOTE ---
Received phone call from MARV Pendleton from OB. Mother was already discharged from the hospital and baby boy Yong is currently being watched for 5 days to ensure no withdrawal symptoms. Per MARV Cowart, mother came back to hospital today due to follow up RN visit. When mother met with the nurse she kept running in and out and was on the phone. Mother reported that the treatment manager are at her house in [place] due to the neighbor calling the treatment manager as the father Saad Bang apparently fell asleep on the couch and the three children (Lexi -4, Vadim -3, Adalynn -2) were found outside the house. facilities coordinator called and spoke DCFS in [place] ( ) and spoke with reforestation worker Penny Chaudhary and reported the above information; however, [place] DCFS has not been contacted at this time as waiting on cord results and mother was not drug tested. Case #[id number]. Penny reported that the [place] DCFS worked will reach out to [place] DCFS if needed. Spoke with store deli manager Vidhya who is aware of the above situation.
--- NOTE | 2023-10-29 08:02 | PCCCNOTE ---
Umbilical cord results came back as all none detected except for testing positive for THC which is legal. Mother and baby already D/C; no need to notify DCFS.
--- NOTE | 2023-11-17 21:50 | PM.OBDSVD ---
DS: Admitting Diagnosis Discharge Date 10/23/23 Admitting Diagnosis term DS: Discharge Diagnosis Discharge Diagnosis (1) Term delivered: Code(s): O80 - Encounter for full-term uncomplicated delivery Status: Acute OB - DS: Summary OB Procedures : None OB Procedures Intrapartum: Spontaneous Vag Delivery OB Procedures: : None Peripartum Data Laceration Description: None Episiotomy description: None Time Spent with Patient Time attestation: Total time spent providing and/or coordinating discharge services: Discharge Plan Discharge Consulting providers: Bee Restrepo; Sameer Gomez; Shyanne Pyle Discharging Clinician: Nikolai Diaz Patient Disposition: Home, Self-Care Activity: pelvic rest Diet: regular Discharge Instructions: Education: Mom and Baby Guide Given to: Mother Follow-Up: Call your delivering provider's office for an appointment to be seen in: Call office for an appointment Mom should come to the [facility] for the follow-up appointment, if still here with baby then the follow up nurse will see you in your room. Appointment Date/Time: October 25, 2023 at 10:00 am What to expect at your follow-up visit: Blood Pressure Check Physical Assessment Call [phone] if you are unable to keep your appointment time. BREAST CARE: * Wear a snug supportive bra. * For engorgement discomfort: Breast Feeding: * Apply warm moist washcloths * Express milk as needed to relieve engorgement * Wear loose clothing Bottle Feeding: * May apply ice packs * For sore nipples: * Identify correct latch-on * Apply warm moist washcloths before and after nursing * Air dry nipples after nursing * May apply Lansinoh cream to nipples PERINEAL CARE: * Until bleeding stops, use your ayad bottle after urinating * Change your pad frequently throughout the day * You may take sitz baths several times a day (fill your bathtub with warm water and soak for 20 minutes.) Do NOT bathe in the water * No tub baths until seen by your physician - You may shower ACTIVITY: * Rest as much as possible. * Do not exercise or lift anything heavier than your baby (such as laundry or other children.) * Avoid stairs or driving as much as possible. * Do not put anything into the vagina. No douching, tampons, or sexual activity until seen by physician. NOTIFY PHYSICIAN IF YOU HAVE ANY QUESTIONS OR IF ANY OF THE FOLLOWING SYMPTOMS OCCUR: * If your incision becomes red, swollen, or more painful than what you have experienced in the hospital. * If your vaginal bleeding becomes foul smelling. * If your vaginal bleeding becomes more heavy than a period or if your bleeding changes from pink to bright red. However, you may pass an occasional walnut-sized clot once or twice for the first week . * If you experience a sharp, shooting pain in you calves. * If you discover a hard, reddened area on your breast or if you experience flu-like symptoms. DIET: * Eat regular, well-balanced meals. * Drink plenty of fluids daily. If , drink to thirst. Patient Instructions: Antibiotic Form, Depression (DC), Your Baby (DC), Vaginal Delivery (DC) Stand Alone Forms: General Discharge Information Follow-up/Referrals: Nikolai Diaz MD [Physician] - Call for Appointment Discharge Medications: New labetalol 100 mg Tablet 200 mg PO Q12HR Qty: 60 0RF Continued prednisone 10 mg tablet 10 mg PO DAILY hydrocodone-acetaminophen 5-325 mg tablet 5 tablet PO PRN Date of admission: 10/21/23 05:03 Primary Care Provider: UNKNOWN,DOCTOR Admitting Provider: Nikolai Diaz Attending physician on admission: Nikolai Diaz Condition: Stable
== END 2023-10-23 23:15 | disposition home or self-care (01) | DRG 560 ==
LOC: ANHLDR 05:06 → ANHOB2 16:12
PROVIDERS: Admitting Provider Obstetrics & Gynecology; Visit Provider Obstetrics & Gynecology
DX: O80 Encounter for full-term uncomplicated delivery (principal); Z37.0 Single live birth; Z3A.40 40 weeks gestation of pregnancy
CPT/HCPCS: 36415; 80053; 84550; 85014; 85018; 85025; 86592; 86703; 86850; 86900; 86901; A9270; G0432; J0290; J2590; J2795; J3010; J7120

== ENCOUNTER 2024-10-19 06:12 | Inpatient (IN) | payer OTHER, SELFPAY ==
[2024-10-19] VITALS (63 sets, daily range): BP systolic 83–153; BP diastolic 50–106; PULSE 57–231; RESP 20; TEMP 36.2–36.7; O2SAT 95–99; BMI 43.9
--- OUTSIDE RECORDS SUMMARY | 2024-10-19 06:19 | XMS_ITS | Clinical Summary ---
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 Answer Date Recorded Law Office Receptionist: Difficult to Study or Work Not on fi le 10/17/2023 Comments Unknown Sex and Gender Information Value Date Recorded Sex Assigned at Not on file Legal Sex Female 4:49 PM CDT Gender Identity Not on file Sexual Orientation Not on file Last Filed Vital Signs Vital Sign Reading Time Taken Comments Blood Pressure - - Pulse - - Temperature - - Respiratory Rate - - Oxygen Saturation - - Inhaled Oxygen Concentration - - Weight 90.9 kg (200 lb 6.4 oz) 10/17/2023 4:55 P M CDT Height 175 cm (5' 8.9) 10/17/2023 4:55 PM CDT Body Mass Index 29.68 10/17/2023 4:55 PM CDT Plan of Treatment Health Maintenance Due Date Last Done Comments Depression Screening 1992 Pap Smear 2013 Cervical Cancer Screening 2022 HPV/Cotest 2022 COVID-19 Vaccine (2023-2 5 season) 2024 Influenza Vaccine (#1) 2024 Meningococcal B Vaccine Aged Out No l onger eligible based on patient's age to complete this topic
--- NOTE | 2024-10-19 06:21 | WPDANESEPP ---
Anes - Eval Pre Procedure Procedure: Labor epidural Date/Time: 10/19/24 06:21 Surgeon: Joe Preop Diagnosis: Abdominal pain with contractions Pre Op Diagnosis: IOL Patient Data Age: 34 Gender: F Height: Weight: Allergies Allergy/AdvReac Type Severity Reaction Status Date / Time methylphenidate Allergy Unknown Hives Verified 10/21/23 05:32 metoclopramide (From Reglan) AdvReac Agitated Verified 10/21/23 05:32 Home Medications ?Medication ?Instructions ?Recorded ?Confirmed ?Type hydrocodone 5 mg-acetaminophen 325 5 tablet PO PRN 10/21/23 10/21/23 History mg tablet prednisone 10 mg tablet 10 mg PO DAILY 10/21/23 10/21/23 History labetalol 100 mg tablet 200 mg (2 x 100 mg) PO Q12HR #60 10/23/23 Rx tabs : gestational age HCG: positive Patient hx anesthesia problems: none Family hx anesthesia problems: none Results Review: All pre-operative results and documents have been reviewed as part of the pre-operative evaluation. [facility] Past Medical History Medical History Tobacco abuse Obesity and not yet delivered Borderline personality disorder PIH ( induced hypertension) Chronic bronchitis ADHD Bipolar disorder PCOS (polycystic ovarian syndrome) Surgical History Surgical History History of back surgery Family History Family History Mother Hypertension Sibling Hypertension Father Hypertension Social History Social History Smoking packs per day: 1 Smoking cigarettes per day: 20.0 Years smoked: 13 Smoking pack-years: 13.00 Smoking status: Current every day smoker Tobacco type: cigarettes Second hand tobacco smoke exposure: Yes Additional smoking assessment comments: Cut down to 1/2 PPD during Alcohol intake: current Alcohol use details: 1 PINT VODKA 4 DAYS A WEEK Substance use: current Substance use type: marijuana Other substance usage details: pt stated stopped herion 7 years ago, currently smokes marijuana daily Last use: 07/15/21 Do You Feel Safe in your Home?: Yes Lack of Transportation: No Lack of Food: Never True Current Housing: I Have Housing Concerned About Future Housing: No Difficulty Paying Gas/Electric Bills: No Difficulty Paying for Meds: No Currently Unemployed: No Education: High School Diploma/GED Difficulty w/ Childcare or Family Care: No Living arrangements: with family Gender identity (if verbalized by the patient): Female Spiritual care concerns: No Exam Day of Procedure 10/19/24 06:21 Patient weight: obese
--- NOTE | 2024-10-19 07:04 | LDADM ---
This patient, Samantha Beach, was admitted to Labor/Delivery/Recovery 106 on 10/19/24 at 06:12. Plans for labor, pain management and were discussed with patient. Patient/family oriented to hospital policies and general routines including ID bracelet, bed and alarms, visiting hours, pain management, procedures, bathroom and other care routines, personal items, smoking policy, room service/diet and guest tray routines, security routines, and visiting hours. Patient/Family are encouraged to report perceived risks to care and to ask questions if they do not understand what they are told or what they should do. See OBIX for further documentation.
[2024-10-19] MEDS: LACTATED RINGERS 1,000 ML 125 ML IV CONT ×2 (07:49→09:28)
[2024-10-19 08:01] LABS: Hematocrit 37.0 % (37.0-47.0); Hemoglobin 13.3 g/dL (12.0-15.0); Immature Granulocyte Percent A 0.6 % (0-0.5); Lymphocytes Absolute Auto 2.07 K/mm3 (0.9-3.2); Mean Corpuscular HGB Conc 35.9 g/dl (32-36); Mean Corpuscular Hemoglobin 31.5 pg (26-34); Mean Corpuscular Volume 87.7 fl (80-100); Nucleated Red Blood Cells Absolute Auto 0.000 K/mm3 (0.0-0.012); Nucleated Red Blood Cells Perc 0.0 % (0.0-0.2); Platelet Count Result 264 k/mm3 (150-375); Red Blood Count 4.22 M/mm3 (4.2-5.4); White Blood Count 9.9 K/mm3 (4.5-10.0)
[2024-10-19] MEDS: OXYTOCIN 30 UNITS/NS 500 ML 30 UNITS/500 ML BAG IV CONT (08:02)
--- NOTE | 2024-10-19 08:13 | WPDOBADMIT ---
Obstetrics - Admit Note Admission Note: record reviewed. No pertinent additions to the history and/or any subsequent changes in the physical findings that are not consistent with the expected course of the were found. Additions to the history and/or subsequent changes in the physical findings follow. Admit for IOL, sve /high
[2024-10-19 08:47] LABS: Syphilis IgG/IgM Antibody Non-Reactive (Nonreactive)
[2024-10-19] MEDS: FAMOTIDINE 20 MG/2 ML VIAL IV PUSH (10:07)
[2024-10-19] MEDS: fentaNYL CITRATE INJ (*CRX) 100 MCG/2 ML VIAL 50 MCG IV PUSH (11:41)
--- NOTE | 2024-10-19 12:18 | PM.OBPNLAB ---
Pain Control Date/time seen: 10/19/24 12:18 Comments: SVE 4-5 cm/60/-2 anterior cervix, bedside us, hand/arm in front of head, did not attempt AROM
--- NOTE | 2024-10-19 14:47 | PM.OBPNLAB ---
Pain Control Date/time seen: 10/19/24 14:47 Comments: SVE 6 outer 4inner, AROM large amount of clear, odorless fluid, anticipate vaginal delivery
--- NOTE | 2024-10-19 17:01 | PM.OBPRVD ---
OB - Vaginal Delivery Note Procedure Delivery date: 10/19/24 Induction method: AROM and Per Pitocin Protocol Delivery monitor: External FHT and Internal Uterine Route of delivery: Laceration Description: None Specimen: No Quantitative Blood Loss (ml): 25 Anesthesia type: Epidural Disposition: Floor Baby Date of : 10/19/24 Time of : 16:45 Gestational Age by Date: 39 Infant gender: Female presentation: vertex position: Left Occiput Anterior Placenta delivery description: Spontaneous and Expressed Cord Vessel Description: 3 Vessels, Nuchal Cord (1), Reduced and Delayed Cord Clamping score one minute: 9 score five minutes: 9
[2024-10-19] MEDS: OXYTOCIN 30 UNITS/NS 500 ML 30 UNITS/500 ML BAG 125 UNITS IV CONT (17:17)
[2024-10-19] MEDS: COSYNTROPIN 0.25 MG/ML VIAL 1 MG IV PUSH (18:32)
[2024-10-19] MEDS: IBUPROFEN 600 MG TABLET PO (19:04)
[2024-10-19] MEDS: WITCH HAZEL 40 PADS 1 PAD TOPICAL (19:35)
[2024-10-19] MEDS: BENZOCAINE 20% AER SPR (*SP) 56 GM CAN 1 SPRAY TOPICAL (19:35)
[2024-10-19] MEDS: oxyCODONE/ACETAMINOPHEN (*CRX) 10-325 MG TABLET 1 TAB (20:25)
--- NOTE | 2024-10-19 21:14 | PC.NURSE ---
1939 - Addy RN and Dorota FAIR brought the patient to the unit and got the patient settled. Addy Rn stated the patient was in a lot of pain and stated the tylenol and motrin aren't helping her. This RN called Dr. Diaz for further orders. Dr. Diaz ordered percocet-10 to be given q6h PRN. This RN brought the medication to the patient. The patient was flailing in the bed, continuing to cry hard and stated that the medication would not help for a long time and she wanted to go outside to smoke a cigarette. This RN informed the patient that she was not able to go outside to smoke a cigarette with her IV in place and she was receiving her pitocin and needed her IV to stay in. This RN attempted to do an assessment as the patient was stating she had back and lower abdomninal pain and wasnt able to give further description. The patient allowed this RN to do vital signs and observe the abdomen but refused fundal height assessment or fundal rub. The patient did allow this RN to assess vaginal bleeding and small to moderate bleeding was noted. The patient then refused her pitocin and stated she wanted her IV removed. This RN again educated patient on the importance of pitocin and the mechanism of action. The patient adamently refused and this RN removed the IV and stopped the pitocin. The patient demanded to go outside for a cigarette. This RN expressed concern with allowing the patient to leave the unit in this state and the patient stated the cigarette would calm her down and she needed to go. This RN took the baby to Danitza FAIR and brought the patient a wheelchair and wheeled the patient outside. The patient stated she needed 10 minutes. Dorota FAIR offered to bring the patient back in when she was finished smoking. 2034 - This RN contacted Dr. Diaz to inform him of the above and Dr. Diaz gave further orders for valium to be given if needed. Dorota FAIR brought the patient back to her room and the patient was no longer crying or in pain. The patient stated she was previously having cramping that resolved and she felt better. This RN returned baby to the mother's room and assessed the baby. This RN admitted the patient and left patient in the room with baby .
[2024-10-20] MEDS: oxyCODONE HCL (*CRX) 5 MG TAB IR PO ×2 (03:40→10:00)
[2024-10-20] MEDS: oxyCODONE/ACETAMINOPHEN (*CRX) 5-325 MG TABLET 1 TABLET PO ×2 (03:40→09:59)
--- NOTE | 2024-10-20 03:47 | PC.NURSE ---
4355 - Spoke with patient regarding need for resources. 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 Patient stated that resources would be nice information for her to have access to. This RN believes the patient would benefit from care coordination consult. Patient informed the consult would be ordered
[2024-10-20 05:04] LABS: Hematocrit 35.9 % (37.0-47.0); Hemoglobin 12.5 g/dL (12.0-15.0)
[2024-10-20 06:55] VITALS: BP 142/94; PULSE 71; RESP 16; TEMP 36.7; O2SAT 100
--- NOTE | 2024-10-20 07:43 | P.PNOB_ITS ---
OB - PN: Subj Subjective Date/time seen: 10/20/24 07:43 Interval history: pp day 1 c/o lower abd pain resolved with percocet monitor bp denies pastor visual changes epigastric pain OB - PN: Obj Data Labs 10/20/24 03:34 Labs: Laboratory Results - last 24 hr 10/19/24 10/20/24 07:40 03:34 WBC 9.9 RBC 4.22 Hgb 13.3 12.5 Hct 37.0 35.9 L MCV 87.7 MCH 31.5 MCHC 35.9 RDW 15.1 H Plt Count 264 MPV 10.2 Immature Gran % (Auto) 0.6 H Neut % (Auto) 71.4 Lymph % (Auto) 20.9 [place] % (Auto) 6.6 Eos % (Auto) 0.3 Baso % (Auto) 0.2 Lymph # (Auto) 2.07 [place] # (Auto) 0.7 H Eos # (Auto) 0.0 Baso # (Auto) 0.0 Abs Immat Gran (auto) 0.06 H Absolute Neuts (auto) 7.1 H Absolute Nucleated RBC 0.000 Nucleated RBC % 0.0 Syphilis IgG/IgM Ab Non-reactive Blood Type A Positive Antibody Screen Negative OB - PN A/P Plan day: 1 Plan: routine care Time Spent With Patient Time: Total time spent is greater than 50% in coordination of care (as documented) at patient's floor/unit and/or counseling patient: Review of Systems 2 Review of Systems: All systems reviewed & are unremarkable except as noted in HPI and below Exam 2 Const: General: cooperative, healthy appearing and comfortable Chest: Chest palpation & inspection: normal inspection of the chest Resp: Effort & Inspection: normal respiratory effort Cardio: Rate: regular rate
[2024-10-20] MEDS: MULTIVIT/MIN/PREN/FOL AC/IRON TABLET 1 TAB PO (09:59)
--- NOTE | 2024-10-20 14:44 | PCCCNOTE ---
Met with pt. today. FOB of baby girl Yong in room, named Sarthak. Pt.'s 4 other children in the room Lexi (5), Vadim (3), Jarocho (2), Brayden (1). All children looked well and cared for. Also in the room was Sarthak's mother (Paternal Grandmother) and Sarthak's uncle. Pt. and Sarthka report they are living in [place] in a mobile home they have purchased with their now 5 children. Sarthak has two other children from a previous relationship who are 16 and 18, he does not have contact with them at this time. Pt. reports that she has a Pack N Play for baby girl to sleep in at discharge. They have a car seat already. Sarthak's mom reports she helps with transportation and baby sitting. They have all other belongings for the baby. Went ahead and gave basket with added clothing and blankets to pt. Pt. plans to use her current freight broker. Reports she is going to be living permanently in [place]. Has successfully switched over WIC services and has WIC for all of her children, will add baby girl once she gets home. resources given. Pt. states she has no other needs. Spoke about plumbing issues in her mobile home but reports this is going on at the mobile home park impacting her and several neighbors so she is working with the management of that park to determine if the plumbing is having draining issues. Denies any other needs.
[2024-10-20 15:02] VITALS: BP 137/95; PULSE 97; RESP 16; TEMP 36.8; O2SAT 99
--- NOTE | 2024-10-20 16:44 | PC.NURSE ---
1630. Patient requesting percocet 10mg at this time for back pain. Patient was offered tylenol or motrin to try first for pain before using Percocet, patient refused Motrin and tylenol. Patient was also offered a heating pad or ice pack at this time, but patient refused. Samantha was rating her pain a 4 out of 10 at this time. We reviewed the use of Narcotics and non non-narcotics for pain. Patient verbalized understanding. RN encouraged patient to call out for Motrin or Tylenol if she changed her mind.
--- NOTE | 2024-10-20 16:50 | PC.NURSE ---
1350. Epidural catheter removed at this time, blue catheter tip intact. Patient tolerated well.
[2024-10-20 19:56] VITALS: BP 138/88; PULSE 102; RESP 20; TEMP 36.5; O2SAT 98
[2024-10-21] MEDS: MULTIVIT/MIN/PREN/FOL AC/IRON TABLET 1 TAB PO (08:23)
[2024-10-21] MEDS: DOCUSATE SODIUM 100 MG CAPSULE PO (08:23)
[2024-10-21 09:19] VITALS: BP 145/99; PULSE 82; RESP 18; TEMP 36.6; O2SAT 98
--- NOTE | 2024-10-21 13:32 | P.PNOB_ITS ---
OB - PN: Subj Subjective Date/time seen: 10/21/24 13:32 Interval history: pp day 1 c/o lower abd pain resolved with percocet monitor bp denies pastor visual changes epigastric pain Patient comments: no complaints, pain well controlled and tolerating diet OB - PN: Obj Data Labs 10/20/24 03:34 OB - PN A/P Plan day: 2 Plan: routine care and discharge home Time Spent With Patient Time: Total time spent is greater than 50% in coordination of care (as documented) at patient's floor/unit and/or counseling patient: Exam 2 Const: General: comfortable and no acute distress Resp: Effort & Inspection: normal respiratory effort Auscultation: no rales, no rhonchi and no wheezes Cardio: Rate: regular rate Heart sounds: no click, no murmurs and no rubs GI: GI Palp: Yes Soft to palpation and No Tenderness to palpation present (GI) Auscultation: normal bowel sounds Extrem: General: normal to inspection, no pedal edema and no calf tenderness
--- NOTE | 2024-10-21 13:33 | PM.OBDSVD ---
DS: Admitting Diagnosis Discharge Date 10/21/2024 Admitting Diagnosis Term DS: Discharge Diagnosis Discharge Diagnosis (1) Term delivered: Code(s): O80 - Encounter for full-term uncomplicated delivery Status: Acute OB - DS: Summary OB Procedures : None OB Procedures Intrapartum: Spontaneous Vag Delivery OB Procedures: : None Peripartum Data Laceration Description: None Time Spent with Patient Time attestation: Total time spent providing and/or coordinating discharge services: Discharge Plan Discharge Discharging Clinician: Nikolai Diaz Patient Disposition: Home Activity: pelvic rest Diet: regular Patient Instructions: Antibiotic Form Patient Language: South [place] Stand Alone Forms: General Discharge Information Follow-up/Referrals: Nikolai Diaz MD [Physician, PORTABLE ROUTER OPERATOR] Discharge Medications: Continued prednisone 10 mg tablet 10 mg PO DAILY hydrocodone-acetaminophen 5-325 mg tablet 5 tablet PO PRN labetalol 100 mg Tablet 200 mg PO Q12HR Qty: 60 0RF Date of admission: 10/19/24 06:12 Primary Care Provider: UNKNOWN,DOCTOR Admitting Provider: Nikolai Diaz Attending physician on admission: Nikolai Diaz Condition: Stable
--- NOTE | 2024-10-21 13:37 | PC.NURSE ---
Mother verbalizes she is able to independently latch with appropriate positioning and alignment. She denies any nipple discomfort and is responsively . Infant is currently meeting outcomes for weight, output, jaundice, blood sugar and feeding frequencies of 8-12 times in 24 hours. Mother declines any additional assistance or education at this time. Mother is encouraged to call for assistance if her infant doesn?t latch, pain with latching, questions or concerns. Mother voiced understanding of information shared along with the mom/baby guide for an additional resource. Reported to the Primary RN.
[2024-10-24 09:33] VITALS: BP 145/95; PULSE 94; TEMP 37.3
== END 2024-10-21 13:50 | disposition home or self-care (01) | DRG 560 ==
LOC: ANHLDR 06:16 → ANHOB2 21:38
PROVIDERS: Advanced Practice Midwife; Admitting Provider Obstetrics & Gynecology; Visit Provider Obstetrics & Gynecology
DX: O69.81X0 Labor and delivery complicated by cord around neck, without compression, not applicable or unspecified (principal); Z3A.39 39 weeks gestation of pregnancy; Z37.0 Single live birth
CPT/HCPCS: 36415; 85014; 85018; 85025; 86593; 86850; 86900; 86901; A9270; J0834; J2590; J2795; J3010; J7120

== ENCOUNTER 2024-12-05 00:11 | Day surgery (SDC) | payer OTHER, SELFPAY ==
--- NOTE | 2024-11-22 09:58 | PC.NURSE ---
[facility] has started construction of its new state of the art ER which will open Spring 2026. With this, we anticipate parking may be a challenge for some our surgical patients and families. Parking spaces are limited but are available for all Surgical, obstetrics, and ER patients sharing this lot. If you arrive and find you are having a hard time finding a parking space, please note that we understand the challenges, please drive around the hospital and park near Hospital Entrance 1. When you enter this entrance, you can ask a volunteer to direct or take you back to the surgical waiting area to check in. We appreciate everyone?s understanding of these expected challenges while we build for your future. Report to the Outpatient Waiting Room, entrance under the green pavilion located off [address], at time 0600 on date 12/05/24. Planned Procedure Time: 0730.? Time changes happen often and if your time is changed the preop area will call you the afternoon before. - You and your visitor will be asked to self-screen and do not enter if you have any COVID symptoms. Please call surgeon if you need to reschedule. - A mask is optional within the hospital at this time. Patients may have clear liquids (water, carbonated beverages, clear teas, apple juice) until 3 hours prior to surgery with a maximum of 20 ounces. 0430 - No food from midnight until time of surgery and no smoking, or chewing tobacco (or any form of nicotine). No chewing gum, candy or mints. - Infants may have breast milk until 4 hours before surgery, infant formula 6 hours prior to surgery. - Children will be allowed to drink immediately following surgery.? If applicable, please bring a bottle or sippy cup to assist with drinking. Juice, water, soda, and popsicles are readily available.? For infants on formula, please bring formula the day of surgery.? Pacifiers are allowed. Take only the following medications with a SIP of water on the morning of surgery: N/A DO NOT STOP ANY OF YOUR OTHER PRESCRIPTION MEDICATIONS PRIOR TO SURGERY EXCEPT THE FOLLOWING Hold all vitamins and supplements for 3 days per anesthesiologist. Medications to discontinue per physician N/A Date to take last dose N/A Please no make-up, nail sami, hairspray, perfume, deodorant, or body powder the day of surgery.? No jewelry (including any body piercings) or valuables the day of surgery, leave them at home.? Please take a shower or bath the night before, or the morning of, surgery with an antibacterial soap.? Wear comfortable, loose fitting clothing.? Children are encouraged to wear pajamas. - Jewelry must be removed prior to entering the operating room.? Rings and piercings that are not removed may be cut off. - The hospital will not accept responsibility for valuables.? - Please leave all valuables, including medications, at home the day of surgery. If you are going home after surgery, a licensed tractor sweeper driver must drive you home.? - NO public transportation without another adult if you receive anesthesia. - We recommend that an adult stay with you for 24 hours following discharge. - We also recommend that you do not drive, make important decision, drink alcoholic beverages, or take any drugs that were not prescribed by your health care provider for at least 24 hours after your discharge time. For Pediatric surgeries, we recommend two adults accompany the child home. Follow any additional instructions given to you from your surgeon. Telephone instructions given to Patient- Samantha Beach and asked if any additional questions and then verbalized understanding. Patient advised to call surgeon office or pre surgery nurse liaison [phone] if any additional questions.
[2024-11-22 10:01] VITALS: BMI 39.2
[2024-12-05] VITALS (8 sets, daily range): BP systolic 127–165; BP diastolic 77–106; PULSE 57–73; RESP 12–18; TEMP 35.5–36.5; O2SAT 96–100; BMI 39.2
--- OUTSIDE RECORDS SUMMARY | 2024-12-05 00:14 | XMS_ITS | Data Portability ---
Author Organization 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 Discussed plan. [email or web address] Not available 10/12/2024 12:49:41 Plan of Treatment Reminders Order Date Submit Date Provider Last Modified By Organization Details Last Modified Time Details Appointments SURG Salpingec hong 2024 07:30A Herb DIAZ MD Not available Not available Not available SURG POST OP 2024 01:00P Herb DIAZ MD Not available Not available Not available Lab None recorded. Referral None recorded. Procedures None recorded. Surgeries None recorded. Imaging non-stres s test 2024 [address]25 [address], [address], [place], [address], 10/12/2024 14:55:54 US, obstetric , biophysic al profile + non-stres s test 2024 025 [email or web address] [place] [facility] [address], [place], [address], 10/12/2024 15:11:46 non-stres s test 2024 [email or web address], [address], [place], [address], 10/05/2024 12:40:03 US, obstetric , biophysic al profile + non-stres s test 2024 025 [email or web address] [place], [address], [place], [address], 10/05/2024 22:40:51 Medication Orders None recorded. Patient TargetsNo targets recorded. Patient InstructionsNo instructions recorded. Reason for Referral None Reported. Results Created Date Observation Date Name Description Value Unit Range Abnormal Flag Note LastModifiedBy Organization Detail LastModifiedTime 09/28/1909/27/2024 CULTU RE: GROUP B STREP SCREE N, REFLE X SUSCE PTIBI LITY result report SEE RESULT S BELOW Test: Cultu re: Group B Strep , Refle x Susce ptibi lity ([facility]W ) Speci men Sourc e: Vagin a/Rec sourav Speci men Type: Vagin al/Re ctal Speci men Date: 2024 1537 Resul t Date: 2024 1404 Resul t Statu s: Final resul t Abnor mal: No Resul ting Lab: [facility] [address] [facility] [address] Tel: CULTU RE ----- ----- ----- --- No Group B strep isola chavo at 2 days (tera ctive broth enhan cemen t) Not Available [facility] (Lab) [address] [facility], [place], [address], 09/30/2024 15:08:27 09/20/19 25 09/19/2024 US, obste tric, follo w-up No observ ation record ed. [email or web address] [place] [address], [place], [address], 09/19/2024 13:50:08 09/20/19 25 09/19/2024 US, obste tric, follo w-up No observ ation record ed. [email or web address] [address], [place], [address], 09/27/2024 16:24:30 10/06/19 25 10/05/2024 US, obste tric, bioph ysica l profi le + non-s tress test No observ ation record ed. [email or web address] [place] [address], [place], [address], 10/05/2024 12:12:56 10/06/19 25 10/05/2024 US, obste tric, bioph ysica l profi le + non-s tress test No observ ation record ed. [email or web address] [address], [place], [address], 10/06/2024 15:06:17 10/06/19 25 10/05/2024 non-s tress test No observ ation record ed. [email or web address] [place] [address], [place], [address], 10/05/2024 22:36:50 10/06/19 25 non-s tress test No observ ation record ed. [email or web address] [place] [address], [place], [address], 10/05/2024 12:36:22 10/13/19 25 10/12/2024 US, obste tric, bioph ysica l profi le + non-s tress test No observ ation record ed. [email or web address] [place] [address], [place], [address], 10/12/2024 12:58:23 10/13/19 25 10/12/2024 US, obste tric, bioph ysica l profi le + non-s tress test No observ ation record ed. [email or web address] [address], [place], [address], 10/12/2024 18:04:30 10/13/19 25 10/12/2024 non-s tress test No observ ation record ed. [email or web address] [place] [address], [place], [address], 10/12/2024 15:08:06 10/13/19 25 non-s tress test No observ ation record ed. [email or web address] [place] [address], [place], [address], 10/12/2024 12:52:08 Result Notes None recorded. Problems Name Problem SNOMED Code Status Onset Date Resolution Date Notes Provider Name and Address Organization Details Recorded Time Pregnanc y-induce d hyperten fara 29350369 Completed 37wk delivery Merari Arciniega [facility] 0 10:41:33 Bipolar disorder 59964366 Completed Untreate d Marifer sandy [facility] 1 12:19:35 Past pregnanc y history of pre-ecla mpsia 1557531856 99430 Completed Baby asa Marifer sandy [facility] 1 12:19:35 Obesity 574185376 Completed NSTs @ 32 weeks - please ask question s 08/07 and give to Saniya to schedule out Marifer gregory, [facility] 1 12:19:35 Bipolar disorder 48286702 Completed stable - no Tx Marifer sandy [facility] 2 17:34:19 History of back pain 1007063926 28969 Completed [facility] 17:34:19 Past pregnanc y history of pre-ecla mpsia 8094127246 76090 Completed 4# 11oz at 37 wk delivery for pree Marifer gregory, [facility] 2 17:34:19 Borderli ne personal ity disorder 64629064 Completed stable - no Tx Marifer gregory, [facility] 2 17:34:19 Anxiety disorder 647016270 Completed needs treatmen t - Rxed zoloft Marifer gregory, [facility] 2 17:34:19 High risk pregnanc y care Completed Short interpre gnancy interval - 3 months Marifer gregory, [facility] 2 17:34:19 Prematur e delivery 452454814 Completed PPROM at 35 weeks - [place] Marifer gregory, [facility] 2 17:34:19 Small for gestatio nal age fetus 230529397 Completed Marifer gregory, [facility] 2 17:34:19 Placenta previa 86583434 Completed 05/01/2021 resolved Marifer gregory, [facility] 2 17:34:19 Insomnia 292862572 Completed rxed trazadon e Marifer gregory, [facility] 2 17:34:19 Cholelit hiasis with obstruct ion 83886939 Completed was seen at [facility] ED, has resolved with diet changes. Marifer gregory, [facility] 2 17:34:19 Prematur e delivery 885555663 Completed 31 weeks - last pregnanc y, previous was 35 week Nikolai Diaz MD [address], [place], [address], [facility] 4 12:14:07 Pre-ecla mpsia 378475469 Completed 1st pregnanc y - baby asa Nikolai Diaz MD [address], [place], [address], [facility] 4 12:14:07 Past pregnanc y history of pre-ecla mpsia 3818395634 90778 Completed Nikolai Diaz MD [address], [place], [address], [facility] 5 18:25:14 labor with delivery 4221796684 8926075 Completed 35 weeks,. and 31 weeks in 2021 full term previous pregnanc y Bryanna Elizabeth [facility] 5 16:13:17 Body mass index 30+ - obesity 858291024 Completed antenata l testing @ 37wks Bryanna Elizabeth [facility] 5 12:32:53 Body mass index 30+ - obesity 319250459 Active antenata l testing @ 37wks Bryanna [facility] 5 12:32:53 Pregnanc y detectio n examinat ion Completed 201902/20/2020 Encounte r for pregnanc y test, result positive ;Practic e ID: 0001 Vidhya Hamm MD [address], [place], [address], [facility] 1 11:58:43 Antenata l screenin g Completed 201902/20/2020 Encounte r for antenata l screenin g for nuchal transluc ency;Pra ctice ID: 0001 Vidhya Hamm MD [address], [place], [address], [facility] 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 11:58:37 Rubella screenin g status 335675117 Completed 201902/20/2020 Encounte r for antenata l screenin g, unspecif ied;Prac saritha ID: 0001 Vidhya Hamm MD [address], [place], [address], [facility] 11:58:47 Antenata l screenin g for malforma tion Completed 201902/20/2020 Encounte r for antenata l screenin g for malforma tions;Pr actice ID: 0001 Vidhya Hamm MD [address], [place], [address], [facility] 11:58:33 Normal pregnanc y in multigra christian 7034028890 06772 Completed 201902/20/2020 Encounte r for suprvsn of normal pregnanc y, second trimeste r;Practi ce ID: 0001 Vidhya Hamm MD [address], [place], [address], [facility] 11:58:39 Obesity 520451630 Completed 201902/20/2020 antenata l testing at 32 weeks Vidhya Hamm MD [address], [place], [address], [facility] 1 11:58:45 Obesity 543475927 Completed 2019 antenata l testing at 32 weeks Merari Arciniega null, [facility] 0 10:41:32 Pregnanc y 04491199 Completed 2019 Merari Arciniega null, [facility] 0 10:41:32 Pregnanc y 74986233 Completed 202010/07/2020 Emma Mathur null, [facility] 5 14:19:27 Pregnanc y 62615644 Completed 202107/31/2021 Emma Mathur null, [facility] 5 14:19:27 Placenta circumva llata 7063121 Completed 2021 serial growth u/s Marifer sandy null, [facility] 2 17:34:19 Pregnanc y 99874835 Completed 202310/01/2023 Emma Mathur null, [facility] 5 14:19:27 Pregnanc y 33215691 Completed 202411/06/2024 Emma Mathur null, [facility] 5 14:19:27 Poor clinical growth 990609312 Completed 2024 very small head circumfe rence, to repeat ultrasou nd in 3 weeks Nikolai Diaz MD [address], [place], [address], [facility] 5 16:51:08 Polyhydr amnios 07946913 Completed 2024 Helen gregory [facility] 10:58:49 Problem Notes None recorded. Procedures Surgical History Date Name Laterality Status Provider Name and Address Organization Details Recorded Time 12/15/19 23 HYSTEROSCOPY, REMOVAL OF FOREIGN BODY (SURG) completed Sierra Hall [facility] 02/23/2023 18:13:52 12/04/19 23 IUD Removal completed Nikolai Diaz MD [address], [place], [address], [facility] 12/03/2022 18:20:56 11/19/19 23 IUD Removal completed Abbie Rees [facility]- [address], [place], [address], [facility] 11/18/2022 18:28:31 12/27/19 22 IUD Insertion completed Abbie Rees [facility]- [address], [place], [address], [facility] 12/26/2021 13:27:30 03/06/19 22 Date of Last Pap Smear completed Bryanna Forbes [facility] 12/26/2021 12:23:37 09/27/19 16 Dilation and Curettage completed Kimberly Loving [facility] 05/26/2019 17:54:20 06/10/19 12 operation on lumbar spine completed Kimberly Loving [facility] 05/26/2019 17:55:02 02/08/18 99 Tonsillectomy completed Kimberly Loving [facility] 03/25/2023 15:36:10 Imaging Results None recorded. Procedure Notes None recorded. Medical Equipment None Reported. Allergies Allergen ID Allergen Name Allergen Category Reaction Reaction Severity Criticality Documentation Date Start Date Code Code System Note Provider Name and Address Organization Details Recorded Time 237 Concerta medicatio n Not available Not available Not available 05/26/2019 22673 4 RxNorm Kimberly Loving bri, [facility] 0 16:51:59 238 Reglan medicatio n Not available Not available Not available 05/26/2019 9230 RxNorm Kimberly Loving bri, [facility] 0 16:52:06 Medications Name Sig Start Date Stop Date Status Note LastModified by Organization Details LastModified Time prednisone 10 mg tablet TAKE 6 TABLETS BY MOUTH ONCE DAILY 11/16 completed Not Available Not Available Not Available labetalol 200 mg tablet Take 1 tablet twice a day by oral route. 04/12 completed Not Available Not Available Not Available clindamycin HCl 300 mg capsule Take 1 capsule every 6 hours by oral route for 5 days. 10/08 completed Not Available Not Available Not Available trazodone 50 mg tablet TAKE 1 TABLET BY MOUTH EVERY DAY 12/17 completed Not Available Not Available Not Available hydrocodone 5 mg-acetamin ophen 325 mg tablet TAKE 1 TABLET BY MOUTH EVERY 4 HOURS NEEDED FOR PAIN 11/16 completed Not Available Not Available Not Available ondansetron HCl 4 mg tablet TAKE 1 TABLET BY MOUTH EVERY 8 HOURS 10/08 completed Not Available Not Available Not Available metronidazo le 500 mg tablet Take 1 tablet twice a day by oral route with meals for 7 days, for vaginitis . 02/18 completed Not Available Not Available Not Available tramadol 50 mg tablet TAKE 1/2 TABLET BY MOUTH EVERY 8 HOURS NEEDED 02/18 completed Not Available Not Available Not Available ketorolac 10 mg tablet 10/08 completed Not Available Not Available Not Available Macrobid 100 mg capsule Take 1 capsule twice a day by oral route as directed for 7 days. 05/10 completed Not Available Not Available Not Available amoxicillin 875 mg tablet TAKE 1 TABLET BY MOUTH EVERY 12 HOURS FOR 10 DAYS 02/18 completed Not Available Not Available Not Available Zoloft 50 mg tablet Take 1 tablet every day by oral route. 04/12 completed Not Available Not Available Not Available cephalexin 500 mg capsule TAKE 1 CAPSULE BY MOUTH EVERY 6 HOURS FOR 10 DAYS 07/05 completed Not Available Not Available Not Available oseltamivir 75 mg capsule 07/05 completed Not Available Not Available Not Available cefuroxime axetil 500 mg tablet 11/05 completed Not Available Not Available Not Available labetalol 100 mg tablet Take 1 tablet twice a day by oral route. 10/25 completed Not Available Not Available Not Available ondansetron 4 mg disintegrat ing tablet 12/17 completed Not Available Not Available Not Available dicyclomine 10 mg capsule TAKE ONE CAPSULE BY MOUTH THREE TIMES DAILY 10/08 completed Not Available Not Available Not Available naproxen 500 mg tablet TAKE 1 TABLET BY MOUTH TWICE DAILY WITH FOOD 12/17 completed Not Available Not Available Not Available Promethegan 12.5 mg rectal suppository 08/09 completed Not Available Not Available Not Available Benadryl 12/17 completed Not Available Not Available Not Available Tylenol 12/17 completed Not Available Not Available Not Available active Not Available Not Avai lable Not Available Vitamin 11/16 completed Not Available Not Available Not Available Triveen-Duo DHA 29 mg-1 mg-400 mg oral pack Take 1 pack every day by oral route. 12/17 completed Not Available Not Available Not Available Virt-PN Plus 28 mg-1 mg-300 mg capsule TAKE 1 CAPSULE BY MOUTH EVERY DAY 12/17 completed Not Available Not Available Not Available [place] (PF) 275 mg/1.1 mL subcutaneou s auto-inject or Inject 1 mL by subcutane ous route. 06/04 completed Not Available Not Available Not Available Aurovela Fe 1-20 (28) 1 mg-20 mcg (21)/75 mg (7) tablet TAKE 1 TABLET BY MOUTH EVERY DAY 03/05 completed Not Available Not Available Not Available Slynd 4 mg (28) tablet Take 1 tablet every day by oral route. 02/19 completed Not Available Not Available Not Available Vitals Date Recorded Body weight Systolic And Diastolic Provider Name and Address Organization Details Last Updated DateTime 10/05/2024 662083.79553 g 137/89 mm[Hg] Penny Ayan [facility] 10/05/2024 12:48:09 Date Recorded Body height Body mass index (BMI) Body weight Systolic And Diastolic Provider Name and Address Organization Details Last Updated DateTime 10/05/2024 158.11 cm 44.5 kg/m2 618721.13 g 137/89 mm[Hg] Vidhya [facility] 10/05/2024 12:03:32 Date Recorded Body height Body height Body mass index (BMI) Body weight Systolic And Diastolic Provider Name and Address Organization Details Last Updated DateTime 10/12/2024 158.11 cm 158.11 cm 44.3 kg/m2 375954.5 4 g 141/82 mm[Hg] [facility] 12:31:22 Social History Question Answer Notes LastModified by Organizat ion Details LastModified Time Tobacco Smoking Status Current Every Day Smoker Louann gregory [facility] 04/02/2021 15:12:06 Do You Have An Advance Directive? No Information not available 04/22/2020 If You Are , What Was Your Level Of Alcohol Consumption Prior To ? Occasional Information not available 04/02/2021 Are You Blind Or Do You Have Difficulty Seeing? No Information not available 04/22/2020 What Is Your Level Of Caffeine Consumption? None [email or web address] Information not available 03/05/2021 How Much Tobacco Do You Chew? None Information not available 04/22/2020 In The 14 Days Before Symptom Onset, Have You Had Close Contact With A Laboratory-confir med COVID-19 While That Case Was Ill? No Information not available 04/22/2020 In The 14 Days Before Symptom Onset, Have You Had Close Contact With A Person Who Is Under Investigation For COVID-19 While That Person Was Ill? No Information not available 04/22/2020 Have You Been To An Area Known To Be High Risk For COVID-19? No Information not available 04/22/2020 Are You Deaf Or Do You Have Serious Difficulty Hearing? No Information not available 04/22/2020 What Type Of Diet Are You Following? REGULAR Information not available 04/22/2020 Which Illicit Or Recreational Drugs Have You Used? Marijuana Information not available 04/02/2021 What Is The Highest Grade Or Level Of School You Have Completed Or The Highest Degree You Have Received? [id number] Information not available 04/22/2020 Are There Any Guns Present In Your Home? No Information not available 04/22/2020 What Was The Date Of Your Most Recent Tobacco Screening? 03/25/2023 Information not available 03/25/2023 Do You Use Protection During Sex? No Information not available 04/22/2020 Do You Use Your Seat Belt Or Car Seat Routinely? Yes Information not available 04/22/2020 Do You Have Smoke And Carbon Monoxide Detectors In Your Home? Yes Information not available 04/22/2020 At What Age Did You Start Smoking Tobacco? 19 Information not available 04/22/2020 How Much Tobacco Do You Smoke? 0.5 PPD [id number] Information not available 12/12/2019 Smoking Pre- Yes Information not available 04/02/2021 Do You Use Sunscreen Routinely? Yes Information not available 04/22/2020 How Many Years Have You Smoked Tobacco? 10 [email or web address] Information not available 05/22/2020 Have You Used IV Drugs? No Information not available 04/22/2020 Do You Have Difficulty Walking Or Climbing Stairs? No Information not available 01/15/2022 Sex: Unknown Functional Status Question Answer Note LastModified by Organizat ion Details LastModified Time Do you use any illicit or recreational drugs? No Information not available 04/02/2021 What is your level of alcohol consumption? None Information not available 04/22/2020 Are you able to walk independently without assistance or assistive devices? YESWOREST Information not available 04/22/2020 Are you able to care for yourself independently? Yes Information not available 01/15/2022 Do you have difficulty dressing, bathing, grooming, or toileting? No Information not available 01/15/2022 What is your exercise level? Moderate Information not available 04/22/2020 Mental Status Question Answer Note LastModified by Organization D etails LastModified Time Do you feel stressed (tense, restless, nervous, or anxious, or unable to sleep at night)? [id number] [email or web address] Information not available 05/22/2020 Family History Relationship Description Onset Age of this Age Resolved Age Notes LastModified by Organization Details LastModified Time Mother Hypertensive disorder [email or web address] Not available 05/25 17:47:53 Father Hypertensive disorder [email or web address] Not available 05/25 17:47:53 Paternal Uncle Hypertensive disorder Not available 05/25 17:47:53 Paternal Uncle Asthma [email or web address] Not available 020 17:50:18 Paternal Grandmother Hypertensive disorder [email or web address] Not available 05/25 17:47:53 Maternal Grandfather Hypertensive disorder [email or web address] Not available 05/25 17:47:53 Maternal Grandfather Acute hepatitis [email or web address] Not available 2023 10:58:29 Maternal Grandmother Malignant neoplasm of breast [email or web address] Not available 05/25 17:48:21 Maternal Aunt Acute hepatitis [email or web address] Not available 2023 10:58:29 Paternal Grandfather Seizure disorder [email or web address] Not available 2023 10:58:29 Medical History Condition Response Allergies (Food, seasonal, environmental ) Y Other Y Blood Transfusion N Drug/Latex Allergies/Reactions Y Breast Cancer N Dermatologic Disorders N Lung Disease N Defects or Inherited Disease N Breast Problem N Gestational Diabetes N Hematologic disorders N Anesthesia Complications N History of STI N Deep Vein Thrombosis N Polycystic ovary syndrome Y Anxiety Disorder Y Autoimmune disease N Arthritis N Infertility N Polyps N Acid Reflux (GERD) N History of abnormal pap Y Cancer N Stroke N Varicosities N Neurologic/Epilepsy Y Endometriosis N High Cholesterol N Headaches N Fibromyalgia N Kidney Disease N Heart Problems N Kidney or Bladder Problems Y Thyroid Problems N GI Problems Y Eating Disorder N Anemia N Art (IVF or FET) N Psychiatric Illness Y Ovarian Cancer N Diabetes N Pulmonary (TB, Asthma) N Hepatitis/Liver Disease N No Past Medical History N Eczema N Urinary Tract Infection N Abuse/Domestic Violence N Asthma N Trauma/Violence N Depression/ depression Y Heart Disease N Pre-Eclampsia Y Hypertension N Osteoporosis N Thrombophilias N Gynecological History Statement/Question Response Abnormal Pap Y Flow Moderate Date of LMP 01/18/2024 N On BCP's at Conception? N STIs/STDs N Was last menstrual period normal Y HPV Vaccine Y Duration of Flow (days) 5 Current Control Method Age at First Child 28 Are cycles usually normal N Frequency of Cycle (Q days) 31 Sexually Active? Y None Menses Monthly Y Age of first menstrual cycle 15 Date of Last Pap Smear 03/06/2021 Sexual Problems? Y LMP Definite N Obstetrics History GPAL:G 8 P 2 2 3 5 Type Value Full Term 2 Spontaneous 3 Premature 2 Living 5 Total 8 Past Encounters Encounter ID Performer Location Encounter Start Date Encounter Closed Date Diagnosis/Indication Diagnosis SNOMED-CT Code Diagnosis ICD10 Code Diagnosis IMO Codes Diagnosis Note [id number] Bee Restrepo [facility] [address],[place] [address] 05/26/2019 16:13:39 05/26/2019 17:02:37 Routine care 950797612 Z34.92 [id number] Libia Ga [facility] [address],[place] [address] 06/22/2019 09:47:02 06/22/2019 12:29:22 Routine care 545968112 Z34.93 Localized eruption of skin 933342984 R21 History of MRSA. Will treat. [id number] Nikolai Diaz MD [place] [address],[place] [address] 06/23/2019 12:34:00 06/23/2019 16:11:58 Maternal obesity complicating , childbirth and the puerperium, antepartum 1371487327 07 O99.213 O36.5930 Z3A.28 [id number] [address],[place] [address] 07/06/2019 10:50:17 07/25/2019 18:36:00 Routine care 352949502 Z34.93 [id number] MD Jose E Leiva [address],[place] [address] 07/20/2019 15:04:00 07/20/2019 16:23:16 Maternal obesity complicating , childbirth and the puerperium, antepartum 1756246281 07 O99.213 [id number] MD Jose E Leiva [address],[place] [address] 07/20/2019 15:04:35 06/11/2020 10:13:00 [id number] Nikolai Diaz MD [place] [address],[place] [address] 07/20/2019 15:05:02 07/20/2019 16:22:25 Routine care [id number] Z34.83 [id number] MD Jose E Leiva [address],[place] [address] 07/24/2019 14:08:11 07/24/2019 17:35:34 Maternal obesity complicating , childbirth and the puerperium, antepartum [id number] 07 O99.213 [id number] Nikolai Diaz MD [facility] [address],[place] [address] 07/27/2019 14:42:35 07/27/2019 15:48:51 Maternal obesity complicating , childbirth and the puerperium, antepartum [id number] 07 O99.213 8548 Verito Fraire MD [facility] [address],[place] [address] 07/27/2019 14:42:51 07/27/2019 16:41:39 Normal [id number] Z34.93 [id number] MD Jose E Leiva [address],[place] [address] 07/31/2019 14:00:53 07/31/2019 16:26:13 Maternal obesity complicating , childbirth and the puerperium, antepartum [id number] 07 O99.213 [id number] MD Jose E Leiva [address],[place] [address] 08/03/2019 16:22:33 08/03/2019 16:45:24 Maternal obesity complicating , childbirth and the puerperium, antepartum [id number] 07 O99.213 [id number] [facility] [address],[place] [address] 08/03/2019 16:35:40 08/11/2019 23:30:05 Routine care [id number] Z34.93 [id number] Nikolai Diaz MD [facility] [address],[place] [address] 08/07/2019 13:54:46 08/07/2019 17:28:16 Maternal obesity complicating , childbirth and the puerperium, antepartum [id number] 07 O99.213 [id number] Nikolai Diaz MD [facility] [address],[place] [address] 1 08/10/2019 14:02:30 08/10/2019 15:06:19 Maternal obesity complicating , childbirth and the puerperium, antepartum [id number] 07 O99.213 [id number] Libia Ga [facility] [address],[place] [address] 08/10/2019 14:31:24 08/10/2019 14:51:32 Routine care 021051134 Z34.93 [id number] MD Jose E Leiva [address],[place] [address] 08/14/2019 13:54:46 08/14/2019 14:46:26 Maternal obesity complicating , childbirth and the puerperium, antepartum [id number] 07 O99.213 [id number] MD Jose E Leiva [address],[place] [address] 08/17/2019 14:10:01 08/17/2019 14:55:23 Maternal obesity complicating , childbirth and the puerperium, antepartum [id number] 07 O99.213 [id number] Libia Ga CNM [facility] [address],[place] [address] 08/17/2019 14:10:34 08/17/2019 19:45:13 Routine care [id number] Z34.93 [id number] Nikolai Diaz MD [facility] [address],[place] [address] 08/17/2019 14:11:06 08/17/2019 15:10:18 Poor growth affecting management 520376936 O36.5930 O36.8330 Z3A.36 [address] [address] 09/05/2019 12:30:36 09/05/2019 13:14:19 -induced hypertension [id number] 9100 O13.9 Denies pih symptoms. Precaution s discussed. RTC in 1 week. If bp continues to improve will consider decreasing medication . [id number] Libia Ga CNM [address] [address] 09/12/2019 10:57:04 09/12/2019 15:19:45 -induced hypertension [id number] 9100 O13.9 Denies pih symptoms. BP continues to improve. Will decrease labetalol to 200mg BID. Precaution s discussed. RTC in 1 week. [id number] Libia Ga CNM [address] [address] 09/19/2019 12:50:58 09/19/2019 14:36:19 -induced hypertension [id number] 9100 O13.9 Denies pih symptoms. BP continues to improve. Will decrease labetalol to 100mg BID. Precaution s discussed. RTC in 1 week for post and bp check. If bp normal will consider d/c meds. Pt is interested in ocp. No history of hypertensi on outside of . Will re-evaluat e and make contracept ion decisions at 6 week visit. Libia Ga CNM [facility] [address],[place] [address] 10/26/2019 12:12:16 10/26/2019 18:23:37 state [id number] Z39.2 Continue to watch for signs/symp toms of post depression . Return one year from last pap smear for a well woman exam. BP good. Pt had weaned herself off of labetalol. Patient received above instructio ns, and questions have been answered. If you have any questions please call or respond to this email. Patient was made aware of the patient portal and may obtain a paper copy of today's plan if desired Contracept ion care management 517403913 Z30.9 Pt would like to start p.o.p. Discussed importance of taking at the same time every day. Also informed that it may not be as effective as estrogen containing pills. [id number] MD Jose E Chester [address],[place] [address] 02/20/2020 11:02:36 02/20/2020 12:34:09 Uncertain viability of 465687981 O36.80X0 Z3A.01 [id number] MD Jose E Chester [address],[place] [address] 02/20/2020 11:45:01 02/20/2020 14:08:07 Uncertain viability of 006695759 O36.80X0 Z3A.01 Missed miscarriage 00412 004 O02.1 Contracept ion care management [id number] Z30.9 [id number] MD Jose E Chester [address] [place] [address] 03/01/2020 15:29:01 03/01/2020 16:06:12 [id number] MD Jose E Chester [address] [place] [address] 03/01/2020 15:29:01 03/01/2020 16:06:12 Uncertain viability of 316522135 O36.80X0 Z3A.01 [id number] MD Jose E Chester [address] [place] [address] 1 03/01/2020 16:09:39 03/03/2020 15:47:33 Uncertain viability of 649904945 O36.80X0 Z3A.01 Past pregn patricia history of miscarriage 579548072 Z87.59 [id number] Nikolai Diaz MD [facility] [address],[place] [address] 04/02/2020 15:54:50 04/02/2020 16:51:49 screening [id number] Z36.87 50403 [place] Ga [facility] [address],[place] [address] 04/02/2020 15:59:00 04/03/2020 16:19:07 Gynecologic examination 33554727 Z01.419 test positive 329975299 Z32.01 Risk factors addressed: Tobacco Cessation, Safe Sexual Practices, environmen flaquita, work hazards, travel restrictio ns, seat belt use.Eat a health well balanced diet, avoid alcohol, tobacco, and street drugs. Engage in daily low impact exercise, avoid temperatur e extremes, and cat, rodent, and bird feces.Avoi d travel to areas where zika virus is a concern.Of fered cf/sma/nip t. Will do NIPT. Pt believes cf/sma done last . Handouts given and discussed with patient. Will start baby aspirin daily d/t history of pre e.Childbir th classes recommende d.New OB sheet given. If previous , counseling .Pt verbalizes that she understand s the importance of above instructio ns.All questions were answered. Patient reminded to have annual well woman examinatio n and address [facility] . [id number] Nikolai Diaz MD [facility] [address],[place] [address] 04/22/2020 15:56:01 04/22/2020 16:28:38 screening [id number] Z36.82 [id number] Nikolai Diaz MD [facility] [address],[place] [address] 04/22/2020 15:57:24 04/22/2020 17:28:34 Routine care 155490727 Z34.83 [id number] Nikolai Diaz MD [facility] [address],[place] [address] 05/16/2020 11:30:06 05/17/2020 08:09:00 [id number] Bee Restrepo, [facility] [address],[place] [address] 05/22/2020 14:18:33 05/22/2020 15:50:05 Routine care [id number] Z34.92 [id number] Libia Ga [facility] [address],[place] [address] 1 06/13/2020 11:32:04 06/13/2020 13:09:33 Routine care 963275445 Z34.93 [id number] Nikolai Diaz MD [facility] [address],[place] [address] 06/13/2020 11:31:01 06/13/2020 13:09:50 screening for malformation 314046717 Z36.3 [id number] Libia Ga [facility] [address],[place] [address] 07/15/2020 11:09:29 07/15/2020 12:05:14 Routine care [id number] Z34.93 [id number] Nikolai Diaz MD [facility] [address],[place] [address] 07/15/2020 11:08:31 07/15/2020 11:56:08 screening 731875203 Z36.2 [id number] Libia Ga [facility] [address],[place] [address] 08/07/2020 09:37:35 08/07/2020 10:48:11 Routine care [id number] Z34.93 [id number] MD Jose E Leiva [address],[place] [address] 08/07/2020 09:36:47 08/07/2020 10:12:36 screening [id number] Z36.2 [id number] MD Jose E Leiva [address],[place] [address] 09/05/2020 15:50:58 09/05/2020 16:30:53 Maternal obesity complicating , childbirth and the puerperium, antepartum [id number] 07 O99.213 [id number] MD Jose E Leiva [address],[place] [address] 09/05/2020 15:52:12 09/05/2020 17:14:43 Maternal obesity complicating , childbirth and the puerperium, antepartum [id number] 07 O99.213 O36.8330 Z3A.32 [id number] Nikolai Diaz MD [facility] [address],[place] [address] 09/05/2020 15:52:44 09/06/2020 09:34:35 [id number] Nikolai Diaz MD [facility] [address],[place] [address] 1 09/09/2020 10:42:44 09/09/2020 16:09:37 Maternal obesity complicating , childbirth and the puerperium, antepartum [id number] 07 O99.213 [id number] Nikolai Diaz MD [facility] [address],[place] [address] 09/09/2020 11:51:17 09/09/2020 14:10:09 condition affecting obstetrical care of mother 732620552 O36.8330 Z3A.32 [id number] Nikolai Diaz MD [facility] [address],[place] [address] 09/12/2020 10:08:40 09/12/2020 12:30:16 Abnormal heart rate 669646530 O36.8330 O40.3XX0 Z3A.33 Polyhydramnios 08497298 O40.3XX0 [id number] MD Jose E Leiva [address],[place] [address] 09/12/2020 10:09:40 09/12/2020 12:38:28 Maternal obesity complicating , childbirth and the puerperium, antepartum [id number] 07 O99.213 [id number] Nikolai Diaz MD [facility] [address],[place] [address] 09/12/2020 10:10:08 09/12/2020 12:52:24 screening [id number] Z36.2 [id number] Nikolai Diaz MD [facility] [address],[place] [address] 1 09/16/2020 10:25:56 09/16/2020 11:22:04 Maternal obesity complicating , childbirth and the puerperium, antepartum [id number] 07 O99.213 [id number] Vidhya Hamm MD [facility] [address],[place] [address] 09/24/2020 13:49:18 09/24/2020 14:32:50 Abnormal heart rate 737716271 O36.8330 Z3A.34 [id number] Nikolai Diaz MD [facility] [address],[place] [address] 09/24/2020 13:49:18 09/24/2020 14:32:50 Maternal obesity complicating , childbirth and the puerperium, antepartum [id number] 07 O99.213 [id number] Libia Ga [facility] [address],[place] [address] 11/05/2020 13:42:26 11/05/2020 16:01:49 state 98994915 Z39.2 Continue to watch for signs/symp toms of post depression . Return one year from last pap smear for a well woman exam. Patient received above instructio ns, and questions have been answered. If you have any questions please call or respond to this email. Patient was made aware of the patient portal and may obtain a paper copy of today's plan if desired [facility] [id number] Z30.9 Discussed all control options in great detail. Pt would like to start ocp. She is aware of the risks and benefits. She does not have any medical condition that is contraindi cated with the use of estrogen containing control. Pt will start her pills on the first wednesday following the start of her period. She is aware it is not effective for control the first month. She is also aware of the importance of taking at the same time every day. Encouraged use of condoms as the pill does not protect against STD's. Will return in 3 months for med check. Consent was read and signed. Pt verbalized understand ing. [id number] Libia Ga [facility] [address],[place] [address] 01/23/2021 14:17:36 01/24/2021 18:56:46 Missed period 66473252 N92.5 Risk factors addressed: Tobacco Cessation, Safe Sexual Practices, environmen flaquita, work hazards, travel restrictio ns, seat belt use.Eat a health well balanced diet, avoid alcohol, tobacco, and street drugs.Enga ge in daily low impact exercise, avoid temperatur e extremes, and cat, rodent, and bird feces.Avoi d travel to areas where zika virus is a concern.Of fered cf/sma/nip t. Handouts given and discussed with patient.Ch ildbirth classes recommende d.New OB sheet given.If previous , counseling . Encouraged to start baby aspirin and prenatals. Pt verbalizes that she understand s the importance of above instructio ns.All questions were answered.P atient reminded to have annual well woman examinatio n and address [facility] . [id number] Vidhya Hamm MD [facility] [address],[place] [address] 01/28/2021 14:37:32 01/28/2021 15:11:19 Uncertain viability of [id number] O36.80X0 Z3A.01 [id number] Bee Restrepo [facility] [address],[place] [address] 03/05/2021 14:15:33 03/05/2021 16:30:36 Amenorrhea [id number] N91.2 Gynecologi c examination 09834983 Z01.419 [id number] Nikolai Diaz MD [facility] [address],[place] [address] 03/05/2021 14:15:16 03/05/2021 14:42:10 screening 263375104 Z36.82 [id number] MD Jose E Leiva [address],[place] [address] 1 04/02/2021 14:22:12 04/02/2021 15:11:06 Placenta previa without hemorrhage 4462936 O44.02 Z3A.16 [id number] MD Jose E Leiva [address],[place] [address] 04/02/2021 14:22:24 04/02/2021 16:13:17 Routine care 030859665 Z34.83 [id number] MD Jose E Leiva [address],[place] [address] 1 04/09/2021 14:01:12 04/09/2021 14:16:27 Past history of premature delivery 276416171 Z87.51 [id number] MD Jose E Leiva [address],[place] [address] 04/18/2021 14:09:41 04/18/2021 14:34:09 Past history of premature delivery 326528990 Z87.51 [id number] MD Jose E Leiva [address],[place] [address] 04/25/2021 13:54:53 04/25/2021 14:47:42 Past history of premature delivery 758001427 Z87.51 [id number] MD Jose E Leiva [address],[place] [address] 05/01/2021 15:04:39 05/01/2021 16:14:48 screening for malformation 883329801 Z36.3 [id number] MD Jose E Leiva [address],[place] [address] 05/01/2021 15:04:58 05/01/2021 17:05:01 Routine care 671286013 Z34.83 [id number] MD Jose E Leiva [address],[place] [address] 06/04/2021 14:52:33 06/04/2021 15:40:23 Placenta circumvallata [id number] O43.112 Z3A.25 [id number] MD Jose E Leiva [address],[place] [address] 06/04/2021 14:53:20 06/04/2021 16:03:02 Anxiety 97653811 F41.9 Insomnia 134309002 G47.0 0 [id number] MD Jose E Leiva [address],[place] [address] 1 06/27/2021 11:48:39 06/27/2021 12:45:58 Routine care 911933236 Z34.83 [id number] MD Jose E Leiva [address],[place] [address] 1 06/27/2021 11:49:15 06/27/2021 13:46:12 Placenta circumvallata [id number] O43.113 Z3A.28 [id number] MD Jose E Leiva [address],[place] [address] 08/14/2021 14:32:09 08/14/2021 15:37:28 care 392027294 Z39.2 This patient is a 30-year-ol d female who is 6 weeks from a delivery at 31 weeks. Her baby is doing well. She is doing well. She is bottle feeding currently while the baby is in the NICU. Her bleeding has slowed down considerab ly. She has not had sex. She is going to have a tubal ligation. Ordered for tubal ligation were placed today. State consent form was signed. Female sterilization 608 12169 Z30.2 [id number] MD Jose E Leiva [address],[place] [address] 12/17/2021 14:47:02 12/17/2021 15:34:47 Contraception care management 113490953 Z30.9 This patient is a 31year-old female presents for contracept ion. She is undecided as to what she should start. Talked about all her options. We talked about control pills, patches, vaginal ring. We talked about progestero ne containing and copper IUD. We talked about progestero ne only options such as Depo-Prove ra shot, progestero ne only pills, Nexplanon. We talked about the risks benefits and pros and cons of each method. We spent 15 minutes face-to-fa ce. All of this was counseling . Ultimately she decided on mirena. She was given instructio ns on starting this method. She was informed of side effects. She was given precaution s on failure and special circumstan padilla. She was quoted failure rates for all of the methods we discussed. [id number] Abbie Rees , [facility] [address],[facility] [place] [address] 12/26/2021 12:11:49 12/26/2021 13:37:28 Insertion of intrauterine contraceptive device 56764229 Z30.430 She has been counseled on all of the r/b/a of placement of an intrauteri ne device that include but are not limited to uterine perforatio n, injury to cervix, vagina, bladder, and bowel.Risk s of bleeding due to injury or increased irregular bleeding due to progestin effect of the device. Risks of infection would be increased within the first 21 days of placement with concommita nt cervicitis . She understand s that the device will need to be removed in this instance due to increased risk of Pelvic inflammato ry disease. Patient is aware she is at higher risk for STD and if contracted she could lose her fertility. Pt is aware that if occurs that she should contact office immediatel y to rule out ectopic which could be life threatenin g. IUD will also need to be removed and this could cause miscarriag e. Patient also informed that in the event her strings are absent or embedded at the time of removal she may need to have the IUD surgically removed. She was informed of the above and properly consented. IUD placed w/o complicati on. Patient should return to office after next period to check for string placement. Patient to expect irregular bleeding but should be seen in the ED if bleeding increases to soaking a pad an hour for at least 2 hours. She verbalized understand ing. NOTE: Denies SA since her last menses. We discussed that placing an IUD with possibilit y of could cause SAB/EAB which is not our goal; continues to deny SA since prior to 12/12/2021. UPT is neg today.STD urine sent RTO x 6-8wks IUD string check [id number] Abbie Rees [facility] [address],[place] [address] 01/15/2022 14:15:50 01/16/2022 14:45:55 Abnormal uterine bleeding 8914424450 9100 N93.9 Discussed spotting/A UB can occur during first 6mos after placement. Reviewed abn AUB & when to contact office/urg ent care.If continues or develops more sx'sWe updated STD screenDeci ded on another round of flagyl & will contact with results. Time spent in visit is a total of 15 mins with at least 50% of visit consisting of counseling and review of plan of care. [id number] Abbie Rees [facility] [address],[place] [address] 02/13/2022 13:41:03 02/13/2022 14:13:19 IUD check 770191680 Z30.431 Patient is here for 4-6wk IUD string check. She denies complicati ons, pain, or unpleasant side effects. Happy with this control method. Wishes to continue. Time spent in visit is a total of 15 mins with at least 50% of visit consisting of counseling and review of plan of care. [id number] Abbie Rees [facility] [address],[place] [address] 10/08/2022 11:26:13 10/08/2022 11:51:57 Intrauterine device check 990151938 Z30.431 Today exam is wnlIUD strings visualized No sx's or issues today.Will monitor & if issues we can update TVUS here.TYRESE sent for ED records. Time spent in visit is a total of 15 mins with at least 50% of visit consisting of counseling and review of plan of care. [id number] Abbie Rees [facility] [address] 1 11/18/2022 17:55:05 11/18/2022 18:30:13 Tampon retained in vagina 724031129 Z18.89 Rx sentCounse led on medication R/B's, Most common side effects, & use. All questions were answered to patient satisfacti on. Time spent in visit is a total of 22mins with at least 50% of visit consisting of counseling and review of plan of care Mechanical complication of intrauterine contraceptive device 793060764 T83.39XA IUD removal attempt failed.IUD unable to be removed.Un certain what is stopping the completion of this removal.We agreed to US and f/u as likely this will need MD interventi on for removal of paraguard. [id number] Nikolai Diaz MD [facility] [address],[place] [address] 1 11/25/2022 16:38:31 11/25/2022 17:20:24 Mechanical complication of intrauterine contraceptive device 865630292 T83.39XA N92.6 [id number] Nikolai Diaz MD [facility] [address],[place] [address] 1 12/03/2022 15:43:24 12/04/2022 01:27:01 Mechanical complication of intrauterine contraceptive device 576135709 T83.39XA N92.6 IUD could not be removed. It was firmly embedded. [id number] Nikolai Diaz MD [facility] [address],[place] [address] 01/14/2023 10:23:21 01/14/2023 10:24:38 [id number] Nikolai Diaz MD [facility] [address],[place] [address] 02/18/2023 15:58:54 02/18/2023 17:09:32 screening 339285402 Z36.87 Z3A.01 [id number] Nikolai Diaz MD [facility] [address],[place] [address] 02/18/2023 16:09:12 02/19/2023 07:33:02 Amenorrhea 10762756 N91.2 this patient is a 32-year-ol d female who presents for amenorrhea . She is a positive test. Ultrasound revealed a 1st trimester gestation. Patient has no complaints . We talked about early care. Talked about genetic screening. We talked about her ultrasound results. We talked about the 12 week ultrasound that has genetic screening components . She was given recommenda tions on exercise, diet, over-the-c ounter medication s. We reviewed her obstetric history. We reviewed her medical history. We reviewed her social history. She will begin routine care at her next visit. [id number] Nikolai Diaz MD [facility] [address],[place] [address] 03/25/2023 14:54:58 03/25/2023 15:14:01 [id number] Nikolai Diaz MD [facility] [address],[place] [address] 1 03/25/2023 14:56:07 03/25/2023 16:27:16 Amenorrhea 64046639 N91.2 32-year-ol d female who presents for follow-up on amenorrhea . She had an early intrauteri ne gestation with just a sac previously . We agreed to establish dates based on a later ultrasound . She had a 10 week ultrasound today. It reveals a KEKE of 10/13/2023 . She is doing well. She does not complain of any nausea or problems. She was given precaution s on medication s, exercise, and over-the-c ounter medication s. She will follow up in 2 weeks for the start of care. [id number] Nikolai Diaz MD [facility] [address],[place] [address] 04/08/2023 09:55:00 04/08/2023 12:52:59 Gestation period, 12 weeks 81733307 Z3A.12 Routine an tenatal care 106748162 Z34.83 [id number] MD Jose E Leiva [address],[place] [address] 04/08/2023 09:56:31 04/08/2023 10:40:18 screening 497098310 Z36.82 Z3A.12 [id number] Nikolai Diaz MD [facility] [address],[place] [address] 05/06/2023 11:24:53 05/06/2023 12:17:28 Routine care 529822055 Z34.83 [id number] Nikolai Diaz MD [facility] [address],[place] [address] 10/20/2023 10:58:02 10/20/2023 11:25:56 Uterine size for dates discrepancy 976128590 O26.843 O09.33 Z3A.40 [id number] Nikolai Diaz MD [facility] [address],[place] [address] 1 11/17/2023 11:32:38 11/17/2023 12:10:58 Pain in pelvis 08513629 R10.2 this patient is a 33-year-ol d female who is 4 weeks from a vaginal . She reports abdominal pain. Pain is with movement. When she sits up there was pain in the anterior portion of the pelvis. She denies any nausea, vomiting, fever, chills. She denies any vaginal bleeding. She denies any abnormal vaginal discharge she denies exposure to chlamydia or gonorrhea. she denies any urinary symptoms . To check urine and consider treatment of urinary tract infection, to obtain pelvic ultrasound . Follow up after ultrasound . Spent over 20 minutes on the patient's care. [id number] Nikolai Diaz MD [facility] [address],[place] [address] 1 11/18/2023 12:21:48 11/18/2023 12:53:33 Pain in pelvis 40322470 R10.2 this patient is a 33-year-ol d female who is 4 weeks from a vaginal . She reports abdominal pain. Pain is with movement. When she sits up there was pain in the anterior portion of the pelvis. She denies any nausea, vomiting, fever, chills. She denies any vaginal bleeding. She denies any abnormal vaginal discharge she denies exposure to chlamydia or gonorrhea. she denies any urinary symptoms . To check urine and consider treatment of urinary tract infection, to obtain pelvic ultrasound . Follow up after ultrasound . Spent over 20 minutes on the patient's care. [id number] Nikolai Diaz MD [facility] [address],[place] [address] 12/13/2023 16:04:57 12/13/2023 17:43:56 Anxiety 49518886 F41.9 depression 58 686297 F53.0 Pain in pelvis 91952623 R10.2 this patient is a 33-year-ol d female presents for follow-up on pelvic ultrasound and pelvic pain. Her pelvic pain has resolved. Her ultrasound is essentiall y normal. We talked about depression as well. She has had a previous episode of depression . She is having anxiety and depression symptoms. We agreed to treat with sertraline . She had been treated with sertraline previously in a been effective. Talked about the medication in detail. Talked about risks, benefits, and alternativ es. We talked about precaution s and instructio ns. She will follow up in 1 month for her the mood concern. She was given instructio ns to call with any changes in her mood. [id number] Nikolai Diaz MD [facility] [address],[place] [address] 02/19/2024 10:58:22 02/22/2024 02:07:41 Unprotected sexual intercourse [id number] Z72.51 patient is a 33-year-ol d female presents for follow-up on medication s. She has been notable able to take her medication s regularly. She has a positive test today. We discussed the . She just had a baby 4 months ago. She is considerin g terminatio n. We talked about the clinical aspects of terminatio n. I spent over 20 minutes with the patient. She is likely to proceed with terminatio n. She has a very difficult socioecono silvano position. Amenorrhea [id number] N91. 2 32-year-ol d female who presents for follow-up on amenorrhea . She had an early intrauteri ne gestation with just a sac previously . We agreed to establish dates based on a later ultrasound . She had a 10 week ultrasound today. It reveals a KEKE of 10/13/2023 . She is doing well. She does not complain of any nausea or problems. She was given precaution s on medication s, exercise, and over-the-c ounter medication s. She will follow up in 2 weeks for the start of care. [id number] MD [facility] [address],[place] [address] 04/12/2024 16:53:17 04/12/2024 17:55:50 screening [id number] Z36.82 Z36.87 Z3A.12 [id number] MD [facility] [address],[place] [address] 04/12/2024 16:54:08 04/13/2024 02:12:52 Routine care [id number] Z34.83 [id number] MD [facility] [address],[place] [address] 05/10/2024 15:01:09 05/10/2024 15:58:35 Routine care 671346495 Z34.83 [id number] MD [facility] [address],[place] [address] 06/05/2024 15:04:20 06/05/2024 15:55:25 care status 909124219 Z34.82 [id number] MD [facility] [address],[place] [address] 06/08/2024 16:56:00 06/09/2024 14:15:26 screening for malformation 862626101 Z36.3 Z3A.20 [id number] MD [facility] [address],[place] [address] 07/04/2024 11:34:33 07/04/2024 12:43:31 Follow-up encounter 571846700 Z36.2 Z3A.24 [id number] Nikolai Diaz MD [facility] [address],[place] [address] 07/05/2024 14:50:50 07/05/2024 16:37:01 care status 065078983 Z34.82 [id number] SKINNY STEVENS MD [facility] [address],[place] [address] 08/02/2024 13:59:59 08/02/2024 14:39:18 Blood pressure above reference range 26141685 R03.0 746568 - elevated BP reading today, patient reports increased stress- will check labs today to r/o preeclamps ia Gestation period, 28 weeks 47694740 Z3A.28 1391945 - GCT and labs today- continue PNV Finding of pattern of 257005887 O09.899 56302931 - growth at 32 weeks [id number] MD [facility] [address],[place] [address] 08/16/2024 15:44:43 08/16/2024 17:00:38 care status 109229282 Z34.83 [id number] MD [facility] [address],[place] [address] 08/30/2024 15:34:45 08/30/2024 16:17:35 High risk 92388492 O09.893 O09.299 Z3A.32 52625259 [id number] MD [facility] [address],[place] [address] 08/30/2024 15:35:17 08/30/2024 16:58:36 care status 983357816 Z34.83 [id number] MD [facility] [address],[place] [address] 09/19/2024 10:29:59 09/19/2024 11:17:18 Obesity 301364028 O99.210 O09.299 O09.899 Z3A.35 [id number] MD [facility] [address],[place] [address] 09/19/2024 10:30:14 09/19/2024 19:42:40 [id number] MD [facility] [address],[place] [address] 09/27/2024 14:58:04 09/27/2024 17:02:36 care status 557704314 Z34.83 60460940 [id number] MD [facility] [address],[place] [address] 10/05/2024 11:26:39 10/05/2024 11:56:06 Maternal obesity complicating , childbirth and the puerperium, antepartum 8594129769 07 O99.210 Z3A.37 9900016730 [id number] MD [facility] [address],[place] [address] 10/05/2024 11:27:06 10/05/2024 12:40:03 Body mass index 30+ - obesity 276916465 E66.9 35388440 [id number] MD [facility] [address],[place] [address] 10/05/2024 11:27:22 10/05/2024 15:05:18 care status 990834459 Z34.83 [id number] [id number] MD [facility] [address],[place] [address] 10/12/2024 11:27:43 10/12/2024 12:02:39 care: obstetric risk 358592735 O09.293 Z3A.38 [id number] [id number] MD [facility] [address],[place] [address] 10/12/2024 11:28:03 10/12/2024 14:55:54 Obesity caused by energy imbalance 213596370 E66.09 [id number] Nikolai Diaz MD [facility] [address],[place] [address] 10/12/2024 11:28:15 10/12/2024 14:55:35 care status 996284524 Z34.83 [id number] Health Concerns Section Related Observation LastModified by Organization Detai ls LastModified Time None Recorded Concern Status LastModified by Organization Details LastModified Time None Recorded Advance Directives Directive N: Payers Insurance Date Sequence Insurance Name Policy Number Policy Cantu Covered Member ID Cantu Member ID Guarantor Name 11/04/2023 1 *SELF PAY* Em romie Beach 12/02/2024 1 [facility] (MEDICAID REPLACEMENT - HMO) Samantha Beach [id number] Samantha Beach 05/24/2024 1 [facility] (MEDICAID HMO) [id number] Samantha Beach [id number] Samantha Beach 05/24/2024 1 [place] [facility] Samantha Beach [id number] Samantha Beach Notes Date Note Type Note Provider Name and Address Organization Details Recorded Time 10/05/2024 text/html Generic HPI TemplateReported by Patient Nikolai Diaz MD [address], [place], [address], [facility] 10/05/2024 14:38:02 10/12/2024 text/html Generic HPI TemplateReported by Patient Nikolai Diaz MD [address], [place], [address], [facility] 10/12/2024 14:44:10 OBGyn Episode Ob Episode Information Episode Created Date Number of Fetuses Patient Bloodtype Patient rh Status Prepregnancy Weight lbs Domestic Partner Domestic Partner Phone Father Name Glue Drier Operator Status 05/26/19 20 1 CLOSED Fetus Data First Name Last Name Admitted to NICU Weight (g) Sex Living Outcome Pediatric Complications Fetus ID Race Codes Race Delivery Type , Spontane ous 597 Keke Calculation Initial Keke Date Initial Exam Date Initial Exam Provider Initial Ultrasound Date Last Menstrual Period Date Ultra Sound Weeks Gestation 0 Eighteen To Twenty Week Keke Update Ultra Sound Date Fundal Height At Umbil Quickening Date Ultra Sound Latest Weeks Gestation Final Keke Confirmed By Final Keke Confirmed Date Final Keke Date Ultra Sound Latest Days Gestation 0 0 Menstrual History Last Menstrual Date Menses Monthly On Bcp Conception Prior Menses Frequency Hcg Plus Date Menarche Onset Age Delivery Information Delivery Date Delivery Type Labor Anesthesia Weeks Gestation Incision Type Labor Labor Length Hrs Delivered By Post Complications Tubal Sterilization Discharge Date Comments 6 6 miscarria ge Discharge Information Feeding Method Contraceptive Method Maternal HG B and HCT Levels Ob Episode Information Episode Created Date Number of Fetuses Patient Bloodtype Patient rh Status Prepregnancy Weight lbs Domestic Partner Domestic Partner Phone Father Name Glue Drier Operator Status 05/26/19 20 1 A Positive 252 CLOSED Fetus Data First Name Last Name Admitted to NICU Weight (g) Sex Living Outcome Pediatric Complications Fetus ID Race Codes Race Delivery Type 2126.21 25 F true Full Term 595 Vaginal Delivery Problems Problem Notes Problem Name Start Date End Date Resolution Snomed Code Not e Obesity 05/25/2019 [id number] testing at 32 weeks 05/26/2019 76078920 -induced hypertension 65933440 37wk delivery Keke Calculation Initial Keke Date Initial Exam Date Initial Exam Provider Initial Ultrasound Date Last Menstrual Period Date Ultra Sound Weeks Gestation 09/13/2019 05/26/2019 03/01/2019 12/05/2018 12 Eighteen To Twenty Week Keke Update Ultra Sound Date Fundal Height At Umbil Quickening Date Ultra Sound Latest Weeks Gestation Final Keke Confirmed By Final Keke Confirmed Date Final Keke Date Ultra Sound Latest Days Gestation 0 [email or web address] 07/07/2019 09/11/19 20 0 Pre- Flowsheet Flowsheet Date 05/26/2019 Munoz Score Blood Edema Fundus Height Fundus Units Glucose Ketones Leukocytes Nitrite Labor Signs Protein Cervic Dilation Cervic Effacement Cervic Station neg none 24 wks trace Type Weight in lbs Pre/Post Dialysis Refused Weight 254.972280812106 BP Diastolic BP Location Tested BP Systolic BP Type 75 114 Fetus Heart Rate Present A 145 Present Fetus Movement A Yes Comments patient states that having n ausea and vomiting Flowsheet Date 06/22/2019 Munoz Score Blood Edema Fundus Height Fundus Units Glucose Ketones Leukocytes Nitrite Labor Signs Protein Cervic Dilation Cervic Effacement Cervic Station none 31 Type Weight in lbs Pre/Post Dialysis Refused Weight 261.69364666762 BP Diastolic BP Location Tested BP Systolic BP Type 72 116 sitting Fetus Heart Rate Present A 135 Fetus Movement A Yes Comments 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 It is about 1/2cm in diameter and appears to be healing. However there is some rednes around the preimenter. It is not open to get a culture. Will treat with antibiotics. Pt will keep a close eye on this and let us know if no resolution in the next week. Pt is measuring greater than dates. Will schedule growth u/s. Flowsheet Date 06/23/2019 Munoz Score Blood Edema Fundus Height Fundus Units Glucose Ketones Leukocytes Nitrite Labor Signs Protein Cervic Dilation Cervic Effacement Cervic Station Type Weight in lbs Pre/Post Dialysis Refused BP Diastolic BP Location Tested BP Systolic BP Type Fetus Heart Rate Present Fetus Movement Comments Flowsheet Date 07/06/2019 Munoz Score Blood Edema Fundus Height Fundus Units Glucose Ketones Leukocytes Nitrite Labor Signs Protein Cervic Dilation Cervic Effacement Cervic Station 32 trace Type Weight in lbs Pre/Post Dialysis Refused Weight 261.51343177318 BP Diastolic BP Location Tested BP Systolic BP Type 77 115 sitting Fetus Heart Rate Present A 128 Fetus Movement A Yes Comments Spot on buttocks has complet dougie healed. Pt doing well. No complaints. She will schedule testing starting at 32 weeks. Repeat u/s scheduled. Flowsheet Date 03/10/2019 Munoz Score Blood Edema Fundus Height Fundus Units Glucose Ketones Leukocytes Nitrite Labor Signs Protein Cervic Dilation Cervic Effacement Cervic Station none 14 trace Type Weight in lbs Pre/Post Dialysis Refused Weight 252.709904181633 BP Diastolic BP Location Tested BP Systolic BP Type 74 115 sitting Fetus Heart Rate Present A 150 Fetus Movement A No Comments at 13+4 by sure LMP= 12 week U/S. She is smoking 1/2 ppd and regular MJ, advised to quit both Flowsheet Date 03/31/2019 Munoz Score Blood Edema Fundus Height Fundus Units Glucose Ketones Leukocytes Nitrite Labor Signs Protein Cervic Dilation Cervic Effacement Cervic Station none 18 trace Type Weight in lbs Pre/Post Dialysis Refused Weight 254.045682608898 BP Diastolic BP Location Tested BP Systolic BP Type 75 126 sitting Fetus Heart Rate Present A 145 Fetus Movement A Yes Comments n/V improving. No other com plaints. Expecting baby girl Candida Flowsheet Date 04/27/2019 Munoz Score Blood Edema Fundus Height Fundus Units Glucose Ketones Leukocytes Nitrite Labor Signs Protein Cervic Dilation Cervic Effacement Cervic Station trace 20 Type Weight in lbs Pre/Post Dialysis Refused Weight 259.524378206396 BP Diastolic BP Location Tested BP Systolic BP Type 84 127 sitting Fetus Heart Rate Present A 160 Fetus Movement A No Comments Normal anatomy scan today wi th EIF and an episode of bradycardia during the ultrasound that went down to 50 beats per minute. I discussed these items with the patient. We are going to obtain a maternal medicine consult. Flowsheet Date 07/20/2019 Munoz Score Blood Edema Fundus Height Fundus Units Glucose Ketones Leukocytes Nitrite Labor Signs Protein Cervic Dilation Cervic Effacement Cervic Station Type Weight in lbs Pre/Post Dialysis Refused BP Diastolic BP Location Tested BP Systolic BP Type Fetus Heart Rate Present Fetus Movement Comments Flowsheet Date 07/20/2019 Munoz Score Blood Edema Fundus Height Fundus Units Glucose Ketones Leukocytes Nitrite Labor Signs Protein Cervic Dilation Cervic Effacement Cervic Station Type Weight in lbs Pre/Post Dialysis Refused BP Diastolic BP Location Tested BP Systolic BP Type Fetus Heart Rate Present Fetus Movement Comments Flowsheet Date 07/20/2019 Munoz Score Blood Edema Fundus Height Fundus Units Glucose Ketones Leukocytes Nitrite Labor Signs Protein Cervic Dilation Cervic Effacement Cervic Station 35 trace Type Weight in lbs Pre/Post Dialysis Refused Weight 266.123299936175 BP Diastolic BP Location Tested BP Systolic BP Type 91 136 Fetus Heart Rate Present A 130 Fetus Movement A Yes Comments This patient is a 28-year-ol d 2 para 0-0-1-0 at 32 weeks gestation with obesity. She is having NSTs. She had a recent high risk consult. They would like to repeat a growth ultrasound and 6 weeks. Flowsheet Date 07/24/2019 Munoz Score Blood Edema Fundus Height Fundus Units Glucose Ketones Leukocytes Nitrite Labor Signs Protein Cervic Dilation Cervic Effacement Cervic Station Type Weight in lbs Pre/Post Dialysis Refused BP Diastolic BP Location Tested BP Systolic BP Type Fetus Heart Rate Present Fetus Movement Comments Flowsheet Date 07/27/2019 Munoz Score Blood Edema Fundus Height Fundus Units Glucose Ketones Leukocytes Nitrite Labor Signs Protein Cervic Dilation Cervic Effacement Cervic Station Type Weight in lbs Pre/Post Dialysis Refused BP Diastolic BP Location Tested BP Systolic BP Type Fetus Heart Rate Present Fetus Movement Comments Flowsheet Date 07/27/2019 Munoz Score Blood Edema Fundus Height Fundus Units Glucose Ketones Leukocytes Nitrite Labor Signs Protein Cervic Dilation Cervic Effacement Cervic Station trace 35 cm trace Type Weight in lbs Pre/Post Dialysis Refused Weight 264.567582333848 BP Diastolic BP Location Tested BP Systolic BP Type 83 139 sitting Fetus Heart Rate Present A 140 Fetus Movement A Yes Comments Glucose negative. bc, rma No complaints. Flowsheet Date 07/31/2019 Munoz Score Blood Edema Fundus Height Fundus Units Glucose Ketones Leukocytes Nitrite Labor Signs Protein Cervic Dilation Cervic Effacement Cervic Station Type Weight in lbs Pre/Post Dialysis Refused BP Diastolic BP Location Tested BP Systolic BP Type Fetus Heart Rate Present Fetus Movement Comments Flowsheet Date 08/03/2019 Munoz Score Blood Edema Fundus Height Fundus Units Glucose Ketones Leukocytes Nitrite Labor Signs Protein Cervic Dilation Cervic Effacement Cervic Station Type Weight in lbs Pre/Post Dialysis Refused BP Diastolic BP Location Tested BP Systolic BP Type Fetus Heart Rate Present Fetus Movement Comments Flowsheet Date 08/03/2019 Munoz Score Blood Edema Fundus Height Fundus Units Glucose Ketones Leukocytes Nitrite Labor Signs Protein Cervic Dilation Cervic Effacement Cervic Station 36 Type Weight in lbs Pre/Post Dialysis Refused Weight 268.071617524629 BP Diastolic BP Location Tested BP Systolic BP Type 87 L arm 143 sitting Fetus Heart Rate Present A 142 Fetus Movement A Yes Comments COMPUTERS DOWN DURING VISIT. Initial BP elevated. Repeat 124/87. Pt denies h/a, v/d, or e/p. Will check labs. PIH precautions given. Flowsheet Date 08/07/2019 Munoz Score Blood Edema Fundus Height Fundus Units Glucose Ketones Leukocytes Nitrite Labor Signs Protein Cervic Dilation Cervic Effacement Cervic Station Type Weight in lbs Pre/Post Dialysis Refused BP Diastolic BP Location Tested BP Systolic BP Type Fetus Heart Rate Present Fetus Movement Comments Flowsheet Date 08/10/2019 Munoz Score Blood Edema Fundus Height Fundus Units Glucose Ketones Leukocytes Nitrite Labor Signs Protein Cervic Dilation Cervic Effacement Cervic Station Type Weight in lbs Pre/Post Dialysis Refused BP Diastolic BP Location Tested BP Systolic BP Type Fetus Heart Rate Present Fetus Movement Comments Flowsheet Date 08/10/2019 Munoz Score Blood Edema Fundus Height Fundus Units Glucose Ketones Leukocytes Nitrite Labor Signs Protein Cervic Dilation Cervic Effacement Cervic Station 36 Type Weight in lbs Pre/Post Dialysis Refused Weight 262.645806016878 BP Diastolic BP Location Tested BP Systolic BP Type 85 132 sitting Fetus Heart Rate Present Fetus Movement A Yes Comments Pt c/o carpal tunnel pain in hands. Recommended hand braces at night. Otherwise doing well. Flowsheet Date 08/14/2019 Munoz Score Blood Edema Fundus Height Fundus Units Glucose Ketones Leukocytes Nitrite Labor Signs Protein Cervic Dilation Cervic Effacement Cervic Station Type Weight in lbs Pre/Post Dialysis Refused BP Diastolic BP Location Tested BP Systolic BP Type Fetus Heart Rate Present Fetus Movement Comments Flowsheet Date 08/17/2019 Munoz Score Blood Edema Fundus Height Fundus Units Glucose Ketones Leukocytes Nitrite Labor Signs Protein Cervic Dilation Cervic Effacement Cervic Station Type Weight in lbs Pre/Post Dialysis Refused BP Diastolic BP Location Tested BP Systolic BP Type Fetus Heart Rate Present Fetus Movement Comments Flowsheet Date 08/17/2019 Munoz Score Blood Edema Fundus Height Fundus Units Glucose Ketones Leukocytes Nitrite Labor Signs Protein Cervic Dilation Cervic Effacement Cervic Station Type Weight in lbs Pre/Post Dialysis Refused BP Diastolic BP Location Tested BP Systolic BP Type Fetus Heart Rate Present Fetus Movement Comments Flowsheet Date 08/17/2019 Munoz Score Blood Edema Fundus Height Fundus Units Glucose Ketones Leukocytes Nitrite Labor Signs Protein Cervic Dilation Cervic Effacement Cervic Station trace 35 Type Weight in lbs Pre/Post Dialysis Refused Weight 262.821166200517 BP Diastolic BP Location Tested BP Systolic BP Type 100 140 Fetus Heart Rate Present A 143 Fetus Movement A Yes Comments Increased bp. Pt denies h/a, v/d, or e/p. Pt sent to L&D for pih evaluation. I have discussed recommendation to induce at 37 weeks d/t gestational hypertension. Pt verbalized understanding. If labs and bp are normal and pt is discharged she will be scheduled for MIL on Wednesday evening. Pt would prefer me for delivery. Flowsheet Date 09/05/2019 Munoz Score Blood Edema Fundus Height Fundus Units Glucose Ketones Leukocytes Nitrite Labor Signs Protein Cervic Dilation Cervic Effacement Cervic Station Type Weight in lbs Pre/Post Dialysis Refused Weight 241.881952674960 BP Diastolic BP Location Tested BP Systolic BP Type 92 132 Fetus Heart Rate Present Fetus Movement Comments Flowsheet Date 09/12/2019 Munoz Score Blood Edema Fundus Height Fundus Units Glucose Ketones Leukocytes Nitrite Labor Signs Protein Cervic Dilation Cervic Effacement Cervic Station Type Weight in lbs Pre/Post Dialysis Refused Weight 241.25574325927 BP Diastolic BP Location Tested BP Systolic BP Type 78 R arm 120 sitting Fetus Heart Rate Present Fetus Movement Comments Menstrual History Last Menstrual Date Menses Monthly On Bcp Conception Prior Menses Frequency Hcg Plus Date Menarche Onset Age 1012/05/2018 Genetic Screening And Infection History Question Response Note Mental Retardation/Autism false Patient's Age Will Be 35 Years Or Older At Estim ated Date of Delivery false Thalassemia (Kyrgyz, Danish, Mediterranean, Or Background): MCV < 80 false Neural Tube Defect (Meningomyelocele, Spina Bifi da, Or Anencephaly) false Congenital Heart Defect false Down Syndrome false Gordo-Sachs (eg, Mandaeism, Cajun, Lebanese-Solomon Islander) f alse Luna Disease false Sickle Cell Disease Or Trait () false Hemophilia Or Other Blood Disorders false Muscular Dystrophy false Cystic Fibrosis false Ld's Chorea false Intellectual Disability/Autism false If Yes, Was Person Tested For Fragile X? false Other Inherited Genetic Or Chromosomal Disorder false Maternal Metabolic Disorder (eg, Type 1 Diabetes , PKU) false Patient Or Baby's Father Had A Child With Defects Not Listed Above false Recurrent Loss, Or A Stillbirth false Medications (including Suppl ements, Vitamins, Herbs, OTC Drugs), Illicit/Recreational Drugs, Alcohol false If Yes, Agent(s) And Strength/Dosage false Any Other Genetic History false Live With Someone With TB Or Exposed To TB false Patient Or Partner Has History Of Genital Herpes false Rash Or Viral Illness Since Last Menstrual Perio d false History Of STD, Gonorrhea, Chlamydia, HPV, Syphi lis false Other Infection History false History of HIV false History of Hepatitis false Prior GBS-infected child false Hemoglobinopathy Or Carrier false Other Structural Defect false Recent Travel History Outside of Country false Delivery Information Delivery Date Delivery Type Labor Anesthesia Weeks Gestation Incision Type Labor Labor Length Hrs Delivered By Post Complications Tubal Sterilization Discharge Date Comments 0 Induce d Regional-Ep idural 37.1 Libia Ga, CNM GHTN, PROM treatedx4 Discharge Information Feeding Method Contraceptive Method Maternal HG B and HCT Levels Ob Episode Information Episode Created Date Number of Fetuses Patient Bloodtype Patient rh Status Prepregnancy Weight lbs Domestic Partner Domestic Partner Phone Father Name Glue Drier Operator Status 09/11/19 20 1 DELETED Keke Calculation Initial Keke Date Initial Exam Date Initial Exam Provider Initial Ultrasound Date Last Menstrual Period Date Ultra Sound Weeks Gestation 0 Eighteen To Twenty Week Keke Update Ultra Sound Date Fundal Height At Umbil Quickening Date Ultra Sound Latest Weeks Gestation Final Keke Confirmed By Final Keke Confirmed Date Final Keke Date Ultra Sound Latest Days Gestation 0 0 Menstrual History Last Menstrual Date Menses Monthly On Bcp Conception Prior Menses Frequency Hcg Plus Date Menarche Onset Age Delivery Information Delivery Date Delivery Type Labor Anesthesia Weeks Gestation Incision Type Labor Labor Length Hrs Delivered By Post Complications Tubal Sterilization Discharge Date Comments 0 37.1 GHTN Discharge Information Feeding Method Contraceptive Method Maternal HG B and HCT Levels Ob Episode Information Episode Created Date Number of Fetuses Patient Bloodtype Patient rh Status Prepregnancy Weight lbs Domestic Partner Domestic Partner Phone Father Name Glue Drier Operator Status 04/23/19 21 1 A Positive 235 CLOSED Fetus Data First Name Last Name Admitted to NICU Weight (g) Sex Living Outcome Pediatric Complications Fetus ID Race Codes Race Delivery Type 2267.96 M true Prematur e 8482 Vaginal Delivery Problems Problem Notes 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 2019 Problem Name Start Date End Date Resolution Snomed Code Not e Bipolar disorder 15352696 Unt reated Past history of pre-eclampsia [id number] Baby asa Obesity 315961039 NSTs @ 32 weeks - KP please ask questions 08/07 and give to Saniya to schedule out Keke Calculation Initial Keke Date Initial Exam Date Initial Exam Provider Initial Ultrasound Date Last Menstrual Period Date Ultra Sound Weeks Gestation 10/30/2020 04/22/2020 04/02/2020 9 Eighteen To Twenty Week Keke Update Ultra Sound Date Fundal Height At Umbil Quickening Date Ultra Sound Latest Weeks Gestation Final Keke Confirmed By Final Keke Confirmed Date Final Keke Date Ultra Sound Latest Days Gestation 0 [email or web address] 04/22/2020 10/31/19 21 0 Pre- Flowsheet Flowsheet Date 04/22/2020 Munoz Score Blood Edema Fundus Height Fundus Units Glucose Ketones Leukocytes Nitrite Labor Signs Protein Cervic Dilation Cervic Effacement Cervic Station 13 Type Weight in lbs Pre/Post Dialysis Refused Weight 226.123318057476 BP Diastolic BP Location Tested BP Systolic BP Type 76 R arm 122 standing Fetus Heart Rate Present A 153 Fetus Movement Comments this patient is a 29-year-ol d 4 para 1021 at 12 weeks gestation who presents for initiation of care. She does have some untreated mild bipolar disorder. She has a history of preeclampsia or gestational hypertension -she was instructed to start baby aspirin. She will begin routine care Flowsheet Date 05/16/2020 Munoz Score Blood Edema Fundus Height Fundus Units Glucose Ketones Leukocytes Nitrite Labor Signs Protein Cervic Dilation Cervic Effacement Cervic Station Type Weight in lbs Pre/Post Dialysis Refused BP Diastolic BP Location Tested BP Systolic BP Type Fetus Heart Rate Present Fetus Movement Comments Flowsheet Date 05/22/2020 Munoz Score Blood Edema Fundus Height Fundus Units Glucose Ketones Leukocytes Nitrite Labor Signs Protein Cervic Dilation Cervic Effacement Cervic Station neg none trace Type Weight in lbs Pre/Post Dialysis Refused Weight 217.411645877083 BP Diastolic BP Location Tested BP Systolic BP Type 70 105 Fetus Heart Rate Present Fetus Movement A Yes Comments PATIENT STATES THAT HAVING N AUSEA AND VOMITNG, reviewed precautions, us for FHR, plan 3 week anatomy scan Flowsheet Date 06/13/2020 Munoz Score Blood Edema Fundus Height Fundus Units Glucose Ketones Leukocytes Nitrite Labor Signs Protein Cervic Dilation Cervic Effacement Cervic Station Type Weight in lbs Pre/Post Dialysis Refused BP Diastolic BP Location Tested BP Systolic BP Type Fetus Heart Rate Present Fetus Movement Comments Flowsheet Date 06/13/2020 Munoz Score Blood Edema Fundus Height Fundus Units Glucose Ketones Leukocytes Nitrite Labor Signs Protein Cervic Dilation Cervic Effacement Cervic Station none 20 trace Type Weight in lbs Pre/Post Dialysis Refused Weight 215.154384921482 BP Diastolic BP Location Tested BP Systolic BP Type 61 97 Fetus Heart Rate Present A 151 Fetus Movement A Yes Comments Pt doing well. Still exp aron sea/vomiting. Feels it is improving. Baseline anatomy. EIF noted and informed. Also suboptimal view. Anticipate follow up in 4 weeks. Will await recommendations. Flowsheet Date 07/15/2020 Munoz Score Blood Edema Fundus Height Fundus Units Glucose Ketones Leukocytes Nitrite Labor Signs Protein Cervic Dilation Cervic Effacement Cervic Station Type Weight in lbs Pre/Post Dialysis Refused BP Diastolic BP Location Tested BP Systolic BP Type Fetus Heart Rate Present Fetus Movement Comments Flowsheet Date 07/15/2020 Munoz Score Blood Edema Fundus Height Fundus Units Glucose Ketones Leukocytes Nitrite Labor Signs Protein Cervic Dilation Cervic Effacement Cervic Station none 25 trace Type Weight in lbs Pre/Post Dialysis Refused Weight 213.547102188261 BP Diastolic BP Location Tested BP Systolic BP Type 80 123 Fetus Heart Rate Present A 140 Fetus Movement A Yes Comments Doing well. Does have some a kamla reflux and constipation. Discussed options to help with both. Will try pepcid and colace. Plan to return in 3-4 weeks for visit and gtt Flowsheet Date 08/07/2020 Munoz Score Blood Edema Fundus Height Fundus Units Glucose Ketones Leukocytes Nitrite Labor Signs Protein Cervic Dilation Cervic Effacement Cervic Station Type Weight in lbs Pre/Post Dialysis Refused BP Diastolic BP Location Tested BP Systolic BP Type Fetus Heart Rate Present Fetus Movement Comments Flowsheet Date 08/07/2020 Munoz Score Blood Edema Fundus Height Fundus Units Glucose Ketones Leukocytes Nitrite Labor Signs Protein Cervic Dilation Cervic Effacement Cervic Station none trace Type Weight in lbs Pre/Post Dialysis Refused Weight 213.834790032715 BP Diastolic BP Location Tested BP Systolic BP Type 82 129 Fetus Heart Rate Present Fetus Movement A Yes Comments Increased anxiety d/t poor s leep. Able to fall asleep but not to stay asleep. Discussed night time routine. Pt can also take benadryl 1 tab on occasion. Anatomy follow up today. Await recommendations. Flowsheet Date 09/05/2020 Munoz Score Blood Edema Fundus Height Fundus Units Glucose Ketones Leukocytes Nitrite Labor Signs Protein Cervic Dilation Cervic Effacement Cervic Station Type Weight in lbs Pre/Post Dialysis Refused BP Diastolic BP Location Tested BP Systolic BP Type Fetus Heart Rate Present Fetus Movement Comments Flowsheet Date 09/05/2020 Munoz Score Blood Edema Fundus Height Fundus Units Glucose Ketones Leukocytes Nitrite Labor Signs Protein Cervic Dilation Cervic Effacement Cervic Station Type Weight in lbs Pre/Post Dialysis Refused BP Diastolic BP Location Tested BP Systolic BP Type Fetus Heart Rate Present Fetus Movement Comments Flowsheet Date 09/05/2020 Munoz Score Blood Edema Fundus Height Fundus Units Glucose Ketones Leukocytes Nitrite Labor Signs Protein Cervic Dilation Cervic Effacement Cervic Station Type Weight in lbs Pre/Post Dialysis Refused Weight 210.293968406747 BP Diastolic BP Location Tested BP Systolic BP Type 72 R arm 116 sitting Fetus Heart Rate Present Fetus Movement Comments pt was here for nst ob and u s, left after us, talked with Beer and patient will be seen next week.- patient left without being seen. -RSB Flowsheet Date 09/09/2020 Munoz Score Blood Edema Fundus Height Fundus Units Glucose Ketones Leukocytes Nitrite Labor Signs Protein Cervic Dilation Cervic Effacement Cervic Station Type Weight in lbs Pre/Post Dialysis Refused BP Diastolic BP Location Tested BP Systolic BP Type 75 R arm 119 sitting Fetus Heart Rate Present Fetus Movement Comments Flowsheet Date 09/09/2020 Munoz Score Blood Edema Fundus Height Fundus Units Glucose Ketones Leukocytes Nitrite Labor Signs Protein Cervic Dilation Cervic Effacement Cervic Station Type Weight in lbs Pre/Post Dialysis Refused BP Diastolic BP Location Tested BP Systolic BP Type Fetus Heart Rate Present Fetus Movement Comments Flowsheet Date 09/12/2020 Munoz Score Blood Edema Fundus Height Fundus Units Glucose Ketones Leukocytes Nitrite Labor Signs Protein Cervic Dilation Cervic Effacement Cervic Station Type Weight in lbs Pre/Post Dialysis Refused BP Diastolic BP Location Tested BP Systolic BP Type Fetus Heart Rate Present Fetus Movement Comments Flowsheet Date 09/12/2020 Munoz Score Blood Edema Fundus Height Fundus Units Glucose Ketones Leukocytes Nitrite Labor Signs Protein Cervic Dilation Cervic Effacement Cervic Station Type Weight in lbs Pre/Post Dialysis Refused BP Diastolic BP Location Tested BP Systolic BP Type Fetus Heart Rate Present Fetus Movement Comments Flowsheet Date 09/12/2020 Munoz Score Blood Edema Fundus Height Fundus Units Glucose Ketones Leukocytes Nitrite Labor Signs Protein Cervic Dilation Cervic Effacement Cervic Station 34 trace Type Weight in lbs Pre/Post Dialysis Refused Weight 210.931169006052 BP Diastolic BP Location Tested BP Systolic BP Type 69 R arm 112 sitting Fetus Heart Rate Present A 145 Fetus Movement A Yes Comments NR NST - BPP 09/15 Flowsheet Date 09/16/2020 Munoz Score Blood Edema Fundus Height Fundus Units Glucose Ketones Leukocytes Nitrite Labor Signs Protein Cervic Dilation Cervic Effacement Cervic Station Type Weight in lbs Pre/Post Dialysis Refused BP Diastolic BP Location Tested BP Systolic BP Type 70 R arm 118 sitting Fetus Heart Rate Present Fetus Movement Comments Flowsheet Date 09/24/2020 Munoz Score Blood Edema Fundus Height Fundus Units Glucose Ketones Leukocytes Nitrite Labor Signs Protein Cervic Dilation Cervic Effacement Cervic Station Type Weight in lbs Pre/Post Dialysis Refused BP Diastolic BP Location Tested BP Systolic BP Type 78 R arm 119 sitting Fetus Heart Rate Present Fetus Movement Comments Flowsheet Date 09/24/2020 Munoz Score Blood Edema Fundus Height Fundus Units Glucose Ketones Leukocytes Nitrite Labor Signs Protein Cervic Dilation Cervic Effacement Cervic Station Type Weight in lbs Pre/Post Dialysis Refused BP Diastolic BP Location Tested BP Systolic BP Type Fetus Heart Rate Present Fetus Movement Comments Menstrual History Last Menstrual Date Menses Monthly On Bcp Conception Prior Menses Frequency Hcg Plus Date Menarche Onset Age Genetic Screening And Infection History Question Response Note Mental Retardation/Autism false Patient's Age Will Be 35 Years Or Older At Estim ated Date of Delivery false Thalassemia (Kyrgyz, Danish, Mediterranean, Or Background): MCV < 80 false Neural Tube Defect (Meningomyelocele, Spina Bifi da, Or Anencephaly) false Congenital Heart Defect false Down Syndrome false Gordo-Sachs (eg, Mandaeism, Cajun, Lebanese-Solomon Islander) f alse Luna Disease false Sickle Cell Disease Or Trait () false Hemophilia Or Other Blood Disorders false Muscular Dystrophy false Cystic Fibrosis false [place] Ch[place] false Intellectual Disability/Autism false If Yes, Was Person Tested For Fragile X? false Other Inherited Genetic Or Chromosomal Disorder false Maternal Metabolic Disorder (eg, Type 1 Diabetes , PKU) false Patient Or Baby's Father Had A Child With Defects Not Listed Above false Recurrent Loss, Or A Stillbirth false Medications (including Suppl ements, Vitamins, Herbs, OTC Drugs), Illicit/Recreational Drugs, Alcohol false If Yes, Agent(s) And Strength/Dosage false Any Other Genetic History false Live With Someone With TB Or Exposed To TB false Patient Or Partner Has History Of Genital Herpes false Rash Or Viral Illness Since Last Menstrual Perio d false History Of STD, Gonorrhea, Chlamydia, HPV, Syphi lis false Other Infection History false History of HIV false History of Hepatitis false Prior GBS-infected child false Hemoglobinopathy Or Carrier false Other Structural Defect false Recent Travel History Outside of Country false Delivery Information Delivery Date Delivery Type Labor Anesthesia Weeks Gestation Incision Type Labor Labor Length Hrs Delivered By Post Complications Tubal Sterilization Discharge Date Comments 1 Goyo tony [facility] idural 35.1 true Libia Ga CNM Gbs unknown, Premature ROM, Maternal obesity Discharge Information Feeding Method Contraceptive Method Maternal HG B and HCT Levels Breast Ob Episode Information Episode Created Date Number of Fetuses Patient Bloodtype Patient rh Status Prepregnancy Weight lbs Domestic Partner Domestic Partner Phone Father Name Glue Drier Operator Status 04/23/19 21 1 CLOSED Fetus Data First Name Last Name Admitted to NICU Weight (g) Sex Living Outcome Pediatric Complications Fetus ID Race Codes Race Delivery Type , Spontane ous [id number] Keke Calculation Initial Keke Date Initial Exam Date Initial Exam Provider Initial Ultrasound Date Last Menstrual Period Date Ultra Sound Weeks Gestation 0 Eighteen To Twenty Week Keke Update Ultra Sound Date Fundal Height At Umbil Quickening Date Ultra Sound Latest Weeks Gestation Final Keke Confirmed By Final Keke Confirmed Date Final Keke Date Ultra Sound Latest Days Gestation 0 0 Menstrual History Last Menstrual Date Menses Monthly On Bcp Conception Prior Menses Frequency Hcg Plus Date Menarche Onset Age Delivery Information Delivery Date Delivery Type Labor Anesthesia Weeks Gestation Incision Type Labor Labor Length Hrs Delivered By Post Complications Tubal Sterilization Discharge Date Comments 0 Discharge Information Feeding Method Contraceptive Method Maternal HG B and HCT Levels Ob Episode Information Episode Created Date Number of Fetuses Patient Bloodtype Patient rh Status Prepregnancy Weight lbs Domestic Partner Domestic Partner Phone Father Name Glue Drier Operator Status 04/02/19 22 1 A Positive 194 CLOSED Fetus Data First Name Last Name Admitted to NICU Weight (g) Sex Living Outcome Pediatric Complications Fetus ID Race Codes Race Delivery Type true 1700.97 F true Prematur e Transported to [facility] see notes 30585 Vaginal Delivery Problems Problem Notes Prefers Beer if c/s is neede d.Neg CF/SMA ER visit at [facility] - requested abdominal ultrasound confirmed cholelithiasis (called #[phone])Arianna injection given in Left arm. lot:[id number] exp: 11/2021. precious rosa.[place] [facility] [id number] LOT [id number] EXP 11/2021 LEFT UPPER ARM on 04/09/2021 cinthya Silva [place] injection given in Right arm. lot:[id number] exp:01/2022.precious rosa.[place] injection given in Left arm. lot:[id number] exp:11/2021.precious rosa. 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 u/s Insomnia [id number] rxed traza done Bipolar disorder 11446455 sta ble - no Tx History of back pain [id number] surgical Tx Past history of pre-eclampsia [id number] 4# 11oz at 37 wk delivery for pree Borderline personality disorder 49191137 stable - no Tx Anxiety disorder [id number] nee ds treatment - Rxed zoloft High risk care 261983200 Short interpregnancy interval - 3 months Premature delivery [id number] P PROM at 35 weeks - Arianna Small for gestational age fetus [id number] Cholelithiasis with obstruction [id number] was seen at [facility] ED, has resolved with diet changes. Keke Calculation Initial Keke Date Initial Exam Date Initial Exam Provider Initial Ultrasound Date Last Menstrual Period Date Ultra Sound Weeks Gestation 09/10/2021 04/02/2021 01/28/2021 12/04/2020 7 Eighteen To Twenty Week Keke Update Ultra Sound Date Fundal Height At Umbil Quickening Date Ultra Sound Latest Weeks Gestation Final Keke Confirmed By Final Keke Confirmed Date Final Keke Date Ultra Sound Latest Days Gestation 0 [email or web address] 04/02/2021 09/17/19 22 0 Pre-delilah Flowsheet Flowsheet Date 04/02/2021 Munoz Score Blood Edema Fundus Height Fundus Units Glucose Ketones Leukocytes Nitrite Labor Signs Protein Cervic Dilation Cervic Effacement Cervic Station 17 Type Weight in lbs Pre/Post Dialysis Refused Weight 194.716638070008 BP Diastolic BP Location Tested BP Systolic BP Type 76 R arm 135 sitting Fetus Heart Rate Present A 150 Fetus Movement Comments this patient is a 5 para 1122 at 17 weeks gestation who presents for initial care. She has a history of preeclampsia, she has history of with P prom. We agreed to treatment with weekly progesterone injections and baby aspirin. She has a psychiatric history that is stable and treated at this time. She has a history of a small for gestational age baby. That was a 37 weeker that weighed 4 lb 11 oz by her history. She will be getting serial ultrasounds and NSTs regardless. She is on vaccinated. She was given recommendations on vaccinations. We will begin routine care. She will return in 3 weeks for ultrasound and care. She will start weekly progesterone injections.[place] injection given in Left arm. lot:[id number] exp: 11/2021. Flowsheet Date 04/09/2021 Munoz Score Blood Edema Fundus Height Fundus Units Glucose Ketones Leukocytes Nitrite Labor Signs Protein Cervic Dilation Cervic Effacement Cervic Station Type Weight in lbs Pre/Post Dialysis Refused BP Diastolic BP Location Tested BP Systolic BP Type Fetus Heart Rate Present Fetus Movement Comments Flowsheet Date 04/18/2021 Munoz Score Blood Edema Fundus Height Fundus Units Glucose Ketones Leukocytes Nitrite Labor Signs Protein Cervic Dilation Cervic Effacement Cervic Station Type Weight in lbs Pre/Post Dialysis Refused BP Diastolic BP Location Tested BP Systolic BP Type Fetus Heart Rate Present Fetus Movement Comments Flowsheet Date 04/25/2021 Munoz Score Blood Edema Fundus Height Fundus Units Glucose Ketones Leukocytes Nitrite Labor Signs Protein Cervic Dilation Cervic Effacement Cervic Station Type Weight in lbs Pre/Post Dialysis Refused BP Diastolic BP Location Tested BP Systolic BP Type Fetus Heart Rate Present Fetus Movement Comments Flowsheet Date 05/01/2021 Munoz Score Blood Edema Fundus Height Fundus Units Glucose Ketones Leukocytes Nitrite Labor Signs Protein Cervic Dilation Cervic Effacement Cervic Station Type Weight in lbs Pre/Post Dialysis Refused BP Diastolic BP Location Tested BP Systolic BP Type Fetus Heart Rate Present Fetus Movement Comments Flowsheet Date 05/01/2021 Munoz Score Blood Edema Fundus Height Fundus Units Glucose Ketones Leukocytes Nitrite Labor Signs Protein Cervic Dilation Cervic Effacement Cervic Station 20 Type Weight in lbs Pre/Post Dialysis Refused Weight 196.117849070974 BP Diastolic BP Location Tested BP Systolic BP Type 77 L arm 137 sitting Fetus Heart Rate Present A 150 Fetus Movement A Yes Comments no problems, resolution of l ow-lying placenta, circumvallate placenta, good growth ,good anatomy Flowsheet Date 06/04/2021 Munoz Score Blood Edema Fundus Height Fundus Units Glucose Ketones Leukocytes Nitrite Labor Signs Protein Cervic Dilation Cervic Effacement Cervic Station Type Weight in lbs Pre/Post Dialysis Refused BP Diastolic BP Location Tested BP Systolic BP Type Fetus Heart Rate Present Fetus Movement Comments Flowsheet Date 06/04/2021 Munoz Score Blood Edema Fundus Height Fundus Units Glucose Ketones Leukocytes Nitrite Labor Signs Protein Cervic Dilation Cervic Effacement Cervic Station 26 Type Weight in lbs Pre/Post Dialysis Refused Weight 196.731678569609 BP Diastolic BP Location Tested BP Systolic BP Type 73 R arm 124 sitting Fetus Heart Rate Present A 145 Fetus Movement Comments worsening anxiety, agreed to treat Zoloft, insomnia, agreed to treat with trazodone Flowsheet Date 06/27/2021 Munoz Score Blood Edema Fundus Height Fundus Units Glucose Ketones Leukocytes Nitrite Labor Signs Protein Cervic Dilation Cervic Effacement Cervic Station 29 Type Weight in lbs Pre/Post Dialysis Refused Weight 201.933432843530 BP Diastolic BP Location Tested BP Systolic BP Type 74 R arm 125 sitting Fetus Heart Rate Present A 134 Fetus Movement A Yes Comments Flowsheet Date 06/27/2021 Munoz Score Blood Edema Fundus Height Fundus Units Glucose Ketones Leukocytes Nitrite Labor Signs Protein Cervic Dilation Cervic Effacement Cervic Station Type Weight in lbs Pre/Post Dialysis Refused BP Diastolic BP Location Tested BP Systolic BP Type Fetus Heart Rate Present Fetus Movement Comments seen by MFM 2 weeks ago, chandni hernández, has anatomy follow-up in 2 weeks To complete baseline exam. Pain from cholecystitis is resolved. She has changed her diet significantly. Menstrual History Last Menstrual Date Menses Monthly On Bcp Conception Prior Menses Frequency Hcg Plus Date Menarche Onset Age 1012/04/2020 Genetic Screening And Infection History Question Response Note Mental Retardation/Autism false Patient's Age Will Be 35 Years Or Older At Estim ated Date of Delivery false Thalassemia (Kyrgyz, Danish, Mediterranean, Or Background): MCV < 80 false Neural Tube Defect (Meningomyelocele, Spina Bifi da, Or Anencephaly) false Congenital Heart Defect false Down Syndrome false Gordo-Sachs (eg, Mandaeism, Cajun, Lebanese-Solomon Islander) f alse Luna Disease false Sickle Cell Disease Or Trait () false Hemophilia Or Other Blood Disorders false Muscular Dystrophy false Cystic Fibrosis false [place] Ch[place] false Intellectual Disability/Autism false If Yes, Was Person Tested For Fragile X? false Other Inherited Genetic Or Chromosomal Disorder false Maternal Metabolic Disorder (eg, Type 1 Diabetes , PKU) false Patient Or Baby's Father Had A Child With Defects Not Listed Above false Recurrent Loss, Or A Stillbirth false Medications (including Suppl ements, Vitamins, Herbs, OTC Drugs), Illicit/Recreational Drugs, Alcohol false If Yes, Agent(s) And Strength/Dosage false Any Other Genetic History false Live With Someone With TB Or Exposed To TB false Patient Or Partner Has History Of Genital Herpes false Rash Or Viral Illness Since Last Menstrual Perio d false History Of STD, Gonorrhea, Chlamydia, HPV, Syphi lis false Other Infection History false History of HIV false History of Hepatitis false Prior GBS-infected child false Hemoglobinopathy Or Carrier false Other Structural Defect false Recent Travel History Outside of Country false Delivery Information Delivery Date Delivery Type Labor Anesthesia Weeks Gestation Incision Type Labor Labor Length Hrs Delivered By Post Complications Tubal Sterilization Discharge Date Comments 2 None [facility] idural 31 true Nikolai Diaz MD PROM, Gbs unknown, short interval , placenta cirumvall ate, high risk & SGA Discharge Information Feeding Method Contraceptive Method Maternal HG B and HCT Levels Ob Episode Information Episode Created Date Number of Fetuses Patient Bloodtype Patient rh Status Prepregnancy Weight lbs Domestic Partner Domestic Partner Phone Father Name Glue Drier Operator Status 12/16/19 22 1 CLOSED Fetus Data First Name Last Name Admitted to NICU Weight (g) Sex Living Outcome Pediatric Complications Fetus ID Race Codes Race Delivery Type , Spontane ous 33867 Keke Calculation Initial Keke Date Initial Exam Date Initial Exam Provider Initial Ultrasound Date Last Menstrual Period Date Ultra Sound Weeks Gestation 0 Eighteen To Twenty Week Keke Update Ultra Sound Date Fundal Height At Umbil Quickening Date Ultra Sound Latest Weeks Gestation Final Keke Confirmed By Final Keke Confirmed Date Final Keke Date Ultra Sound Latest Days Gestation 0 0 Menstrual History Last Menstrual Date Menses Monthly On Bcp Conception Prior Menses Frequency Hcg Plus Date Menarche Onset Age Delivery Information Delivery Date Delivery Type Labor Anesthesia Weeks Gestation Incision Type Labor Labor Length Hrs Delivered By Post Complications Tubal Sterilization Discharge Date Comments 2 Discharge Information Feeding Method Contraceptive Method Maternal HG B and HCT Levels Ob Episode Information Episode Created Date Number of Fetuses Patient Bloodtype Patient rh Status Prepregnancy Weight lbs Domestic Partner Domestic Partner Phone Father Name Glue Drier Operator Status 11/17/19 24 1 CLOSED Fetus Data First Name Last Name Admitted to NICU Weight (g) Sex Living Outcome Pediatric Complications Fetus ID Race Codes Race Delivery Type 3203.26 6704 M Full Term 88960 Vaginal Delivery Keke Calculation Initial Keke Date Initial Exam Date Initial Exam Provider Initial Ultrasound Date Last Menstrual Period Date Ultra Sound Weeks Gestation 0 Eighteen To Twenty Week Keke Update Ultra Sound Date Fundal Height At Umbil Quickening Date Ultra Sound Latest Weeks Gestation Final Keke Confirmed By Final Keke Confirmed Date Final Keke Date Ultra Sound Latest Days Gestation 0 0 Menstrual History Last Menstrual Date Menses Monthly On Bcp Conception Prior Menses Frequency Hcg Plus Date Menarche Onset Age Delivery Information Delivery Date Delivery Type Labor Anesthesia Weeks Gestation Incision Type Labor Labor Length Hrs Delivered By Post Complications Tubal Sterilization Discharge Date Comments 4 Discharge Information Feeding Method Contraceptive Method Maternal HG B and HCT Levels Ob Episode Information Episode Created Date Number of Fetuses Patient Bloodtype Patient rh Status Prepregnancy Weight lbs Domestic Partner Domestic Partner Phone Father Name Glue Drier Operator Status 04/13/19 25 1 A Positive 219 CLOSED Fetus Data First Name Last Name Admitted to NICU Weight (g) Sex Living Outcome Pediatric Complications Fetus ID Race Codes Race Delivery Type 3146.79 45 F true Full Term 98932 Vaginal Delivery Problems Problem Notes EIFgrowth us 32wks Problem Name Start Date End Date Resolution Snomed Code Not e Past history of pre-eclampsia 399008018146520 Body mass index 30+ - obesity 882817475 testing @ 37wks Polyhydramnios 10/06/2024 [id number] labor with delivery [id number] 35 wee ks,. and 31 weeks in 2021 full term previous Poor clinical growth 08/30/2024 738072187 very small head circumference, to repeat ultrasound in 3 weeks Keke Calculation Initial Keke Date Initial Exam Date Initial Exam Provider Initial Ultrasound Date Last Menstrual Period Date Ultra Sound Weeks Gestation 10/24/2024 04/12/2024 Dr Diaz 04/12/2024 01/18/2024 12 Eighteen To Twenty Week Keke Update Ultra Sound Date Fundal Height At Umbil Quickening Date Ultra Sound Latest Weeks Gestation Final Keke Confirmed By Final Keke Confirmed Date Final Keke Date Ultra Sound Latest Days Gestation 0 10/25/19 25 0 Pre-delilah Flowsheet Flowsheet Date 04/12/2024 Munoz Score Blood Edema Fundus Height Fundus Units Glucose Ketones Leukocytes Nitrite Labor Signs Protein Cervic Dilation Cervic Effacement Cervic Station neg none none trace Type Weight in lbs Pre/Post Dialysis Refused Weight 219.044015412518 BP Diastolic BP Location Tested BP Systolic BP Type 81 L arm 130 sitting Fetus Heart Rate Present Fetus Movement A No Comments this patient is a 33-year-ol d multiparous female at 12 weeks' gestation who presents for initial care. She has a history of term vaginal births. Her medical, surgical, obstetric history is unremarkable. She is vaccinated. She was given precautions recommendations for . We talked about vaccines in . Talked about care in detail. She is having genetic testing. She had a normal 12 week ultrasound. To begin routine care. Flowsheet Date 05/10/2024 Munoz Score Blood Edema Fundus Height Fundus Units Glucose Ketones Leukocytes Nitrite Labor Signs Protein Cervic Dilation Cervic Effacement Cervic Station Type Weight in lbs Pre/Post Dialysis Refused Weight 227.950751027970 BP Diastolic BP Location Tested BP Systolic BP Type 74 L arm 117 sitting Fetus Heart Rate Present A 145 Fetus Movement A Yes Comments no complaints, no problems, routine care, no contractions, no vaginal bleeding, no loss of fluid, no cramping Flowsheet Date 06/05/2024 Munoz Score Blood Edema Fundus Height Fundus Units Glucose Ketones Leukocytes Nitrite Labor Signs Protein Cervic Dilation Cervic Effacement Cervic Station Type Weight in lbs Pre/Post Dialysis Refused Weight 231.837952962450 BP Diastolic BP Location Tested BP Systolic BP Type 76 L arm 123 sitting Fetus Heart Rate Present A 147 Fetus Movement A Yes Comments no complaints, no problems, routine care, no contractions, no vaginal bleeding, no loss of fluid, no cramping Flowsheet Date 06/08/2024 Munoz Score Blood Edema Fundus Height Fundus Units Glucose Ketones Leukocytes Nitrite Labor Signs Protein Cervic Dilation Cervic Effacement Cervic Station Type Weight in lbs Pre/Post Dialysis Refused BP Diastolic BP Location Tested BP Systolic BP Type Fetus Heart Rate Present Fetus Movement Comments Flowsheet Date 07/04/2024 Munoz Score Blood Edema Fundus Height Fundus Units Glucose Ketones Leukocytes Nitrite Labor Signs Protein Cervic Dilation Cervic Effacement Cervic Station Type Weight in lbs Pre/Post Dialysis Refused BP Diastolic BP Location Tested BP Systolic BP Type Fetus Heart Rate Present Fetus Movement Comments Flowsheet Date 07/05/2024 Munoz Score Blood Edema Fundus Height Fundus Units Glucose Ketones Leukocytes Nitrite Labor Signs Protein Cervic Dilation Cervic Effacement Cervic Station Type Weight in lbs Pre/Post Dialysis Refused 235.594571998009 BP Diastolic BP Location Tested BP Systolic BP Type 76 L arm 116 sitting Fetus Heart Rate Present A 145 Fetus Movement A Yes Comments no complaints, no problems, routine care, no contractions, no vaginal bleeding, no loss of fluid, no cramping Flowsheet Date 08/02/2024 Munoz Score Blood Edema Fundus Height Fundus Units Glucose Ketones Leukocytes Nitrite Labor Signs Protein Cervic Dilation Cervic Effacement Cervic Station neg none Type Weight in lbs Pre/Post Dialysis Refused Weight 231.554663517115 BP Diastolic BP Location Tested BP Systolic BP Type 83 L arm 142 sitting Fetus Heart Rate Present A 150 Fetus Movement A Yes Comments Good movement. Had matthew vated BP today, thinks it is due to stress but is worried about preeclampsia. Will order labs. Thinks she may have a UTI, will send culture today. GCT and labs today as well. Discussed tdap. Plan for growth US at 32 weeks for short interval . RTC 2 weeks. Flowsheet Date 08/16/2024 Munoz Score Blood Edema Fundus Height Fundus Units Glucose Ketones Leukocytes Nitrite Labor Signs Protein Cervic Dilation Cervic Effacement Cervic Station Type Weight in lbs Pre/Post Dialysis Refused 234.581791356545 BP Diastolic BP Location Tested BP Systolic BP Type 77 L arm 116 sitting Fetus Heart Rate Present A 145 Fetus Movement A Yes Comments no complaints, no problems, routine care, no contractions, no vaginal bleeding, no loss of fluid, no cramping Flowsheet Date 08/30/2024 Munoz Score Blood Edema Fundus Height Fundus Units Glucose Ketones Leukocytes Nitrite Labor Signs Protein Cervic Dilation Cervic Effacement Cervic Station Type Weight in lbs Pre/Post Dialysis Refused BP Diastolic BP Location Tested BP Systolic BP Type Fetus Heart Rate Present Fetus Movement Comments Flowsheet Date 08/30/2024 Munoz Score Blood Edema Fundus Height Fundus Units Glucose Ketones Leukocytes Nitrite Labor Signs Protein Cervic Dilation Cervic Effacement Cervic Station Type Weight in lbs Pre/Post Dialysis Refused Weight 234.065846965544 BP Diastolic BP Location Tested BP Systolic BP Type 77 L arm 130 sitting Fetus Heart Rate Present A 144 Fetus Movement A Yes Comments no complaints, no problems, routine care, no contractions, no vaginal bleeding, no loss of fluid, no cramping Flowsheet Date 09/19/2024 Munoz Score Blood Edema Fundus Height Fundus Units Glucose Ketones Leukocytes Nitrite Labor Signs Protein Cervic Dilation Cervic Effacement Cervic Station Type Weight in lbs Pre/Post Dialysis Refused BP Diastolic BP Location Tested BP Systolic BP Type Fetus Heart Rate Present Fetus Movement Comments Flowsheet Date 09/19/2024 Munoz Score Blood Edema Fundus Height Fundus Units Glucose Ketones Leukocytes Nitrite Labor Signs Protein Cervic Dilation Cervic Effacement Cervic Station Type Weight in lbs Pre/Post Dialysis Refused BP Diastolic BP Location Tested BP Systolic BP Type Fetus Heart Rate Present Fetus Movement Comments Flowsheet Date 09/27/2024 Munoz Score Blood Edema Fundus Height Fundus Units Glucose Ketones Leukocytes Nitrite Labor Signs Protein Cervic Dilation Cervic Effacement Cervic Station Type Weight in lbs Pre/Post Dialysis Refused 241.49844890068 BP Diastolic BP Location Tested BP Systolic BP Type 82 L arm 125 sitting Fetus Heart Rate Present A 145 Present Fetus Movement A Yes Comments no complaints, no problems, routine care, no contractions, no vaginal bleeding, no loss of fluid, no cramping Flowsheet Date 10/05/2024 Munoz Score Blood Edema Fundus Height Fundus Units Glucose Ketones Leukocytes Nitrite Labor Signs Protein Cervic Dilation Cervic Effacement Cervic Station Type Weight in lbs Pre/Post Dialysis Refused BP Diastolic BP Location Tested BP Systolic BP Type Fetus Heart Rate Present Fetus Movement Comments Flowsheet Date 10/05/2024 Munoz Score Blood Edema Fundus Height Fundus Units Glucose Ketones Leukocytes Nitrite Labor Signs Protein Cervic Dilation Cervic Effacement Cervic Station Type Weight in lbs Pre/Post Dialysis Refused Weight 245.652934939002 BP Diastolic BP Location Tested BP Systolic BP Type 89 L arm 137 sitting Fetus Heart Rate Present Fetus Movement Comments Flowsheet Date 10/05/2024 Munoz Score Blood Edema Fundus Height Fundus Units Glucose Ketones Leukocytes Nitrite Labor Signs Protein Cervic Dilation Cervic Effacement Cervic Station Type Weight in lbs Pre/Post Dialysis Refused 245.299549371588 BP Diastolic BP Location Tested BP Systolic BP Type 89 L arm 137 sitting Fetus Heart Rate Present A 132 Fetus Movement A Yes Comments no complaints, no problems, routine care, no contractions, no vaginal bleeding, no loss of fluid, no cramping Flowsheet Date 10/12/2024 Munoz Score Blood Edema Fundus Height Fundus Units Glucose Ketones Leukocytes Nitrite Labor Signs Protein Cervic Dilation Cervic Effacement Cervic Station Type Weight in lbs Pre/Post Dialysis Refused BP Diastolic BP Location Tested BP Systolic BP Type Fetus Heart Rate Present Fetus Movement Comments Flowsheet Date 10/12/2024 Munoz Score Blood Edema Fundus Height Fundus Units Glucose Ketones Leukocytes Nitrite Labor Signs Protein Cervic Dilation Cervic Effacement Cervic Station Type Weight in lbs Pre/Post Dialysis Refused BP Diastolic BP Location Tested BP Systolic BP Type Fetus Heart Rate Present Fetus Movement Comments Flowsheet Date 10/12/2024 Munoz Score Blood Edema Fundus Height Fundus Units Glucose Ketones Leukocytes Nitrite Labor Signs Protein Cervic Dilation Cervic Effacement Cervic Station Type Weight in lbs Pre/Post Dialysis Refused Weight 244.824633724430 BP Diastolic BP Location Tested BP Systolic BP Type 82 L arm 141 sitting Fetus Heart Rate Present A 145 Fetus Movement A Yes Comments no complaints, no problems, routine care, no contractions, no vaginal bleeding, no loss of fluid, no cramping Menstrual History Last Menstrual Date Menses Monthly On Bcp Conception Prior Menses Frequency Hcg Plus Date Menarche Onset Age 1201/18/2024 Delivery Information Delivery Date Delivery Type Labor Anesthesia Weeks Gestation Incision Type Labor Labor Length Hrs Delivered By Post Complications Tubal Sterilization Discharge Date Comments 5 39.2 Discharge Information Feeding Method Contraceptive Method Maternal HG B and HCT Levels Ob Episode Information Episode Created Date Number of Fetuses Patient Bloodtype Patient rh Status Prepregnancy Weight lbs Domestic Partner Domestic Partner Phone Father Name Glue Drier Operator Status 04/08/19 24 1 A Positive 214 Saad Bang CLOSED Fetus Data First Name Last Name Admitted to NICU Weight (g) Sex Living Outcome Pediatric Complications Fetus ID Race Codes Race Delivery Type [id number] Problems Problem Notes Problem Name Start Date End Date Resolution Snomed Code Not e Premature delivery [id number] 3 1 weeks - last , previous was 35 week Pre-eclampsia [id number] 1st pr egnancy - baby asa Keke Calculation Initial Keke Date Initial Exam Date Initial Exam Provider Initial Ultrasound Date Last Menstrual Period Date Ultra Sound Weeks Gestation 10/16/2023 02/18/2023 03/25/2023 11 Eighteen To Twenty Week Keke Update Ultra Sound Date Fundal Height At Umbil Quickening Date Ultra Sound Latest Weeks Gestation Final Keke Confirmed By Final Keke Confirmed Date Final Keke Date Ultra Sound Latest Days Gestation 04/08/19 24 12 [email or web address] 04/08/2023 10/13/19 24 5 Pre-delilah Flowsheet Flowsheet Date 04/08/2023 Munoz Score Blood Edema Fundus Height Fundus Units Glucose Ketones Leukocytes Nitrite Labor Signs Protein Cervic Dilation Cervic Effacement Cervic Station neg none none trace Type Weight in lbs Pre/Post Dialysis Refused Weight 214.698810528377 BP Diastolic BP Location Tested BP Systolic BP Type 86 137 Fetus Heart Rate Present A 145 Fetus Movement A Yes Comments 32-year-old 7 para 1 233 at 12 weeks' gestation with history of preeclampsia and 2 deliveries. We talked about care in detail. We talked about vaccines. We talked about her medical conditions and obstetric history. She will begin routine care. She will start a baby aspirin. Flowsheet Date 05/06/2023 Munoz Score Blood Edema Fundus Height Fundus Units Glucose Ketones Leukocytes Nitrite Labor Signs Protein Cervic Dilation Cervic Effacement Cervic Station none none neg Type Weight in lbs Pre/Post Dialysis Refused Weight 214.786884378288 BP Diastolic BP Location Tested BP Systolic BP Type 78 L arm 117 sitting Fetus Heart Rate Present A 145 Fetus Movement A No Comments AFP today , no complaints, n o problems, routine care. Menstrual History Last Menstrual Date Menses Monthly On Bcp Conception Prior Menses Frequency Hcg Plus Date Menarche Onset Age Genetic Screening And Infection History Question Response Note Mental Retardation/Autism false Patient's Age Will Be 35 Years Or Older At Estim ated Date of Delivery false Thalassemia (Kyrgyz, Danish, Mediterranean, Or Background): MCV < 80 false Neural Tube Defect (Meningomyelocele, Spina Bifi da, Or Anencephaly) false Congenital Heart Defect false Down Syndrome false Gordo-Sachs (eg, Mandaeism, Cajun, Lebanese-Solomon Islander) f alse Luna Disease false Sickle Cell Disease Or Trait () false Hemophilia Or Other Blood Disorders false Muscular Dystrophy false Cystic Fibrosis false [place]'s Chorea false Intellectual Disability/Autism false If Yes, Was Person Tested For Fragile X? false Other Inherited Genetic Or Chromosomal Disorder false Maternal Metabolic Disorder (eg, Type 1 Diabetes , PKU) false Patient Or Baby's Father Had A Child With Defects Not Listed Above false Recurrent Loss, Or A Stillbirth false Medications (including Suppl ements, Vitamins, Herbs, OTC Drugs), Illicit/Recreational Drugs, Alcohol false If Yes, Agent(s) And Strength/Dosage false Any Other Genetic History false Live With Someone With TB Or Exposed To TB false Patient Or Partner Has History Of Genital Herpes false Rash Or Viral Illness Since Last Menstrual Perio d false History Of STD, Gonorrhea, Chlamydia, HPV, Syphi lis false Other Infection History false History of HIV false History of Hepatitis false Prior GBS-infected child false Hemoglobinopathy Or Carrier false Other Structural Defect false Recent Travel History Outside of Country false Delivery Information Delivery Date Delivery Type Labor Anesthesia Weeks Gestation Incision Type Labor Labor Length Hrs Delivered By Post Complications Tubal Sterilization Discharge Date Comments Discharge Information Feeding Method Contraceptive Method Maternal HG B and HCT Levels
--- OUTSIDE RECORDS SUMMARY | 2024-12-05 00:15 | XMS_ITS | Clinical Summary ---
Author Organization [facility] Address [address] [place] [address] Care Team Providers Care Breaker Unit Assembler Name Role Phone Unavailable Primary Care Provider Unavailabl e Social History Tobacco Use Types Packs/Day Years Used Date Smoking Tobacco: Never Assessed Concert Pianist Answer Date Recorded Concert Pianist: Difficult to Study or Work Not on [...]
[2024-12-05 06:17] LABS: BEDSIDEPREGUCG Negative (Negative)
[2024-12-05] MEDS: LACTATED RINGERS 1,000 ML 30 ML IV CONT ×2 (06:20→08:46)
[2024-12-05] MEDS: ACETAMINOPHEN 500 MG TABLET 1000 MG PO (06:25)
[2024-12-05] MEDS: KETOROLAC 15 MG/ML VIAL (*BKC) IV PUSH (06:25)
--- NOTE | 2024-12-05 06:57 | P.PNAN_ITS ---
Anes - Initial Pre Proc Eval Procedure: Operation Date: 12/05/24 07:30 Proposed Procedures p Laparoscopic Bilateral Salpingectomy - Nikolai Diaz MD Date/Time: 12/05/24 06:57 Surgeon: Nikolai Diaz MD Pre Op Diagnosis: sterilization Patient Data Age: 34 Gender: F Height: 1.6 m Weight: 100.5 kg Allergies Allergy/AdvReac Type Severity Reaction Status Date / Time methylphenidate Allergy Unknown Hives Verified 12/05/24 06:14 metoclopramide (From Reglan) AdvReac Agitated Verified 12/05/24 06:14 Home Medications ?Medication ?Instructions ?Recorded ?Confirmed ?Type No Home Medications 11/22/24 11/22/24 H istory Laboratory Tests 12/05/24 06:15 POC Urine HCG, Qual Negative (Negative) Patient hx anesthesia problems: none Family hx anesthesia problems: none Results Review: All pre-operative results and documents have been reviewed as part of the pre- operative evaluation. [facility] Past Medical History Medical History Tobacco abuse Obesity and not yet delivered Borderline personality disorder PIH ( induced hypertension) Chronic bronchitis ADHD Bipolar disorder PCOS (polycystic ovarian syndrome) Surgical History Surgical History History of back surgery Family History Family History Mother Hypertension Sibling Hypertension Father Hypertension Social History Social History Smoking packs per day: 1 Smoking cigarettes per day: 20.0 Years smoked: 17 Smoking pack-years: 17.00 Smoking status: Current every day smoker Tobacco type: cigarettes Second hand tobacco smoke exposure: Yes Additional smoking assessment comments: Cut down to 1/2 PPD during Alcohol intake: current Alcohol use details: 1 PINT VODKA 4 DAYS A WEEK Substance use: current Substance use type: marijuana Other substance usage details: daily-smoke Last use: 10/18/24 Do You Feel Safe in your Home?: Yes Lack of Transportation: No Lack of Food: Never True Current Housing: I Have Housing Concerned About Future Housing: No Difficulty Paying Gas/Electric Bills: YES Difficulty Paying for Meds: YES Currently Unemployed: YES Education: High School Diploma/GED Difficulty w/ Childcare or Family Care: No Living arrangements: with family Gender identity (if verbalized by the patient): Female Spiritual care concerns: No Anes - Eval Final PreProcedure Day of Procedure 12/05/24 06:57 Patient weight: obese Lungs: normal air movement Airway: Mallampati scale class II and special considerations (Teeth in very poor condition, grinded down, none loose. ) Neurological: alert and oriented Last oral intake: >/= 8 hours ASA classification: III Emergent: no Anesthetic plan: proceed Anesthesia type and monitoring: general ETT and standard monitoring Results Review: All pre-operative results and documents have been reviewed as part of the pre- operative evaluation. Smoker 1 ppd, smoked at 5 am, cannabis daily, BMI 39, ADHD/bipolar noted in hx. Informed Consent: The patient's anesthetic plan and its attendant risks and benefits were discussed with the patient/family/POA. Questions were solicited and answers provided to the satisfaction of the patient/family/POA.
--- NOTE | 2024-12-05 07:19 | P.HP_ITS ---
H&P: HPI History of Present Illness Date/Time: 12/05/24 07:19 Chief Complaint: Unwanted fertility Narrative: This patient is a 34-year-old female with unwanted fertility. We agreed to perform laparoscopic bilateral salpingectomy. She understands risks, benefits, and alternatives. She has completed informed consent process is ready to proceed. The patient understands the details of the procedure. The procedure has been explained in detail. She understands the risks. She understands that injuries may occur that result in hospitalization, more surgery, and severe illness. She understands risk of hemorrhage and infection. She denies any chest pain or shortness of breath. She denies any nausea, vomiting, fever, chills. Review of Systems Review of Systems: All systems reviewed & are unremarkable except as noted in HPI and below Constitutional: Constitutional: Denies chills, Denies fatigue, Denies fever(s) and Denies weakness Eyes: Eyes: Denies blurry vision, Denies change in vision, Denies loss of peripheral vision, Denies loss of vision, Denies other visual disturbances and Denies eye pain ENT: Denies vertigo, Denies dizziness, Denies hearing loss, Denies mouth pain, Denies nasal obstruction, Denies neck mass and Denies neck pain Cardiovascular: Cardiovascular: Denies chest pain, Denies diaphoresis, Denies syncope, Denies leg edema and Denies dyspnea Respiratory: Respiratory: Denies chest congestion, Denies cough, Denies hemoptysis, Denies dyspnea and Denies wheezing Gastrointestinal: Gastrointestinal: Denies abdominal pain, Denies constipation, Denies diarrhea, Denies nausea and Denies vomiting Genitourinary: Genitourinary: Denies hematuria, Denies change in libido, Denies nocturia, Denies genital lesions, Denies flank pain and Denies urinary urgency Musculoskeletal: Musculoskeletal: Denies abnormal gait, Denies back pain, Denies myalgias, Denies arthralgias, Denies joint swelling, Denies muscle weakness and Denies neck pain Integumentary/Breasts: Skin/Breast: Denies swelling, Denies breast pain, Denies breast mass, Denies dry skin, Denies nipple discharge, Denies unusual bruising and Denies jaundice Neurologic: Denies Neuro-related abnormal movements, Denies Abnormal speech present, Denies abnormal gait, Denies behavioral changes, Denies confusion, Denies vertigo, Denies dizziness, Denies syncope, Denies loss of vision, Denies memory loss, Denies convulsions and Denies weakness Psychiatric: Psychiatric: Denies abnormal sleep pattern, Denies behavioral changes, Denies change in libido, Denies confusion, Denies depression, Denies anhedonia and Denies memory loss Endocrine: Endocrine: Reports no additional endocrine complaints, Denies change in libido and Denies fatigue Hematologic/Lymphatic: Hematologic/Lymphatic: Reports no additional hematologic/lymphatic complaints Allergic/Immunologic: Allergic/Immunologic: Reports no additional allergic/immunologic complaints and Denies wheezing PMFSH Past Medical History Medical History Tobacco abuse Obesity and not yet delivered Borderline personality disorder PIH ( induced hypertension) Chronic bronchitis ADHD Bipolar disorder PCOS (polycystic ovarian syndrome) Surgical History Surgical History History of back surgery Family History Family History Mother Hypertension Sibling Hypertension Father Hypertension Social History Social History Smoking packs per day: 1 Smoking cigarettes per day: 20.0 Years smoked: 17 Smoking pack-years: 17.00 Smoking status: Current every day smoker Tobacco type: cigarettes Second hand tobacco smoke exposure: Yes Additional smoking assessment comments: Cut down to 1/2 PPD during Alcohol intake: current Alcohol use details: 1 PINT VODKA 4 DAYS A WEEK Substance use: current Substance use type: marijuana Other substance usage details: daily-smoke Last use: 10/18/24 Do You Feel Safe in your Home?: Yes Lack of Transportation: No Lack of Food: Never True Current Housing: I Have Housing Concerned About Future Housing: No Difficulty Paying Gas/Electric Bills: YES Difficulty Paying for Meds: YES Currently Unemployed: YES Education: High School Diploma/GED Difficulty w/ Childcare or Family Care: No Living arrangements: with family Gender identity (if verbalized by the patient): Female Spiritual care concerns: No Meds Home Medications and Allergies Home Medications ?Medication ?Instructions ?Recorded ?Confirmed ?Type No Home Medications 11/22/24 11/22/24 H istory Allergies Allergy/AdvReac Type Severity Reaction Status Date / Time methylphenidate Allergy Unknown Hives Verified 12/05/24 06:14 metoclopramide (From Reglan) AdvReac Agitated Verified 12/05/24 06:14 Vital Signs Vital Signs - 24 hr 12/05/24 07:11 Temperature 97.7 F Pulse Rate 73 Respiratory Rate 18 Blood Pressure 139/101 H Pulse Oximetry 98 Oxygen Delivery Room Air Exam Const: General: cooperative, healthy appearing, comfortable and no acute distress Orientation/consciousness: oriented to person, oriented to place and oriented to time HENMT: Head: normal to inspection Ears: external ears normal Face/No se/Sinus: Normal external nose present and normal facial exam Face and sinus: normal facial exam Eyes: General: appearance normal, both eyes and all related structures Neck: Neck: normal visual inspection, trachea midline and supple Resp: Auscultation: clear to auscultation bilaterally, no crackles, no rales, no rhonchi and no wheezes Cardio: Rate: regular rate Rhythm: regular rhythm Heart sounds: no click, no murmurs and no rubs GI: GI Palp: No abdominal tenderness, No Soft to palpation, No Tenderness to palpation present (GI) and No Palpable mass present Auscultation: normal bowel sounds Skin: General skin exam: normal color and no rashes or lesions noted Neuro: General: oriented to person, oriented to place and oriented to time Extrem: General: normal to inspection, no joint enlargement, no clubbing, cyanosis or edema, no pedal edema and no calf tenderness Psych: Appearance: grossly normal Mental Status: mental status grossly normal Speech and movement: Normal speech and movement present Assessment and Plan Assessment and plan (1) Unwanted fertility: Code(s): Z30.09 - Encounter for other general counseling and advice on contraception Status: Acute Plan This patient is a 34-year-old female with unwanted fertility. We agreed to perform laparoscopic bilateral salpingectomy. She understands risks, benefits, and alternatives. She has completed informed consent process is ready to proceed.
--- NOTE | 2024-12-05 07:21 | WPDHPUPDATE1 ---
History and Physical Update Update Date/Time: 12/05/24 07:21 History and Physical has been reviewed, including an updated exam of the patient. There are NO changes in the patient's condition. Risks, benefits, and alternatives have been discussed and questions answered. Patient agrees to proceed with procedure.
--- NOTE | 2024-12-05 07:27 | SUR.PREOP ---
0727- Dr. Fajardo and Dr. Diaz aware of BP being elevated in pre-op. OK to proceed with procedure per MD's.
--- NOTE | 2024-12-05 08:03 | S_PTH ---
PATIENT: Samantha Beach LOC: [facility] U#:[id number] AGE/SX: 34/F ROOM: RE12/05/[address]: Nikolai Diaz MD : 1990 BED: DIS: 12/05/2024 SPEC #: [id number] RECD: 12/05/24 09:14 STATUS: ROSALINE RELetty #: [id number] MAGNUS: 12/05/24 08:[address]: Nikolai Diaz DEPT: [facility] Surgical RECD BY: Layla Rouse ENTERED: 12/05/24 09:14 SP TYPE: Surgical OTHR DR: UNDERWRITING SALES REPRESENTATIVE PHYSICIAN Tissues: A - Fallopian Tube Bilateral Procedures: Gross and Microscopic Level 2 Hematoxylin and Eosin Stain
--- NOTE | 2024-12-05 08:30 | W.PM.PROC2 ---
Procedure Note - Detailed Date of Procedure 12/05/24 Pre-op Diagnosis sterilization Post-op Diagnosis Same Procedure Performed Laparoscopic bilateral salpingectomy Surgeon Nikolai Diaz MD Anesthesia General Indications Unwanted fertility Findings Normal pelvic anatomy Description of Procedure The patient was taken the operating room. She was prepped and draped in the dorsal lithotomy position after induction of general anesthesia. A 5 mm skin incision was made in the left upper quadrant of the abdominal skin. A 5 mm trocar was inserted the intra-abdominal cavity under direct visualization of the scope. Pneumoperitoneum was achieved. A 5 mm trocar was inserted in the left lower quadrant identical fashion. A 5 mm infraumbilical trocar was inserted in identical fashion as well. The bilateral fallopian tubes were removed. This was done by using a LigaSure cautery. The mesosalpinx adjacent to the tube was cauterized transected with LigaSure. This was initiated in the area the ovary and in a stepwise fashion moved medially to the area of the cornu of the uterus. Once there the fallopian tube was cauterized and transected. This was done in identical fashion on each side. The fallopian tubes were taken out through the left lower quadrant trocar site. The pneumoperitoneum was reduced. The trocars removed. The skin was closed with subcuticular 4 Monocryl and covered with Dermabond. She was taken to cover stable condition. Sponge lap and needle counts were correct x2. Estimated Blood Loss 5 Drains No Packing No Pathology Yes Complications No immediate complications Condition Stable Disposition PACU
[2024-12-05] MEDS: fentaNYL CITRATE INJ (*CRX) 100 MCG/2 ML VIAL 25 MCG IV PUSH ×4 (08:52→09:10)
[2024-12-05] MEDS: oxyCODONE HCL (*CRX) 5 MG TAB IR PO (09:35)
== END 2024-12-05 10:01 | disposition home or self-care (01) ==
PROVIDERS: Visit Provider Obstetrics & Gynecology
PROC: (CPT 49320; principal; 2024-12-05 07:30)
DX: Z30.2 Encounter for sterilization (principal); F17.210 Nicotine dependence, cigarettes, uncomplicated; F12.90 Cannabis use, unspecified, uncomplicated; E66.9 Obesity, unspecified; Z68.39 Body mass index [BMI] 39.0-39.9, adult
CPT/HCPCS: 58661; 88302; A9270; J1100; J1885; J2003; J2250; J2405; J2704; J3010; J7030; J7120